=== PATIENT | female | born 1960 | race Caucasian/White ===

== ENCOUNTER 2020-09-04 16:35 | Outpatient (REF) | payer OTHER, SELFPAY | END 2020-09-04 16:36 | disposition home or self-care (01) | LOC: HO.LAB 16:35 | PROVIDERS: PCP Internal Medicine; Visit Provider Internal Medicine | DX: Z20.828 Contact with and (suspected) exposure to other viral communicable diseases (principal) | CPT/HCPCS: C9803; U0003 ==

== ENCOUNTER 2020-10-25 10:46 | Outpatient (REF) | payer OTHER, SELFPAY ==
--- NOTE | 2020-10-25 10:51 | MM_ITS ---
EXAMINATION: MM SCREENING DIGITAL BREAST TOMOSYNTHESIS, BILATERAL CLINICAL INFORMATION: Screening. Asymptomatic. The lifetime risk of breast cancer based on the Tyrer-Cuzick Model is 8%. COMPARISON: Mammography: 06/24/2018, 06/10/2017 TECHNIQUE: Digital breast tomosynthesis is performed in both the craniocaudal and mediolateral oblique views along with computer-aided detection (CAD). Synthesized 2D images are generated from the tomosynthesis. FINDINGS: There are scattered areas of fibroglandular density (ACR BI-RADS breast composition Category b). There are no significant masses, abnormal calcifications, or other abnormalities. Parenchymal pattern is similar to prior studies. No developing density. Again, there are benign grouped stable calcifications left breast posterior upper outer quadrant and scattered calcifications right breast similar to prior exams. No significant changes. MM/MM tomosynthesis screening BI IMPRESSION: No mammographic evidence of malignancy. ASSESSMENT: BI-RADS 2: Benign RECOMMENDATION: Routine annual mammography screening. This patient's information was entered into a reminder system with a target due date for their next mammogram.
== END 2020-10-25 10:47 | disposition home or self-care (01) ==
LOC: HO.MAMMO 10:46
PROVIDERS: PCP Internal Medicine; Visit Provider Internal Medicine
DX: Z12.31 Encounter for screening mammogram for malignant neoplasm of breast (principal)
CPT/HCPCS: 77063; 77067

== ENCOUNTER 2021-12-01 08:05 | Outpatient (REF) | payer OTHER, SELFPAY ==
[2021-12-01 08:33] LABS: MANUAL DIFF FLAG NO
[2021-12-01 09:33] LABS: Basophils Percent Auto 0.3 % (0-2); Eosinophils Absolute Auto 0.2 X10*3/uL (0.0-0.4); Eosinophils Percent Auto 2.3 % (0-4); Hematocrit 40.4 % (37.0-47.0); Hemoglobin 12.5 g/dl (12.0-16.0); Imm Gran Abs Auto 0.02 X10*3/uL (0.00-0.03); Imm Gran Pct Auto 0.3 % (0.0-0.4); Lymphocytes Absolute Auto 2.4 X10*3/uL (1.2-4.9); Mean Corpuscular HGB Conc 30.9 g/dl (31.0-35.0); Mean Corpuscular Hemoglobin 23.3 pg (27.0-33.0); Mean Corpuscular Volume 75.2 fL (80.0-98.0); Mean Platelet Volume 10.8 fL (9.4-12.3); Monocytes Absolute Auto 0.5 X10*3/uL (0.1-1.2); Monocytes Percent Auto 6.9 % (2-11); Neutrophils Absolute Auto 3.9 x10*3/uL (2.0-8.3); Neutrophils Percent Auto 55.2 % (45-73); Platelet Count 307 X10*3/uL (160-400); Red Blood Count 5.37 X10*6/uL (4.20-5.50); Red Cell Distribution Width 16.8 % (11.0-16.0)
[2021-12-01 09:57] LABS: Alanine Aminotransferase 22 U/L (0-31); Albumin Level 4.2 g/dL (3.5-5.0); Alkaline Phosphatase 77 U/L (39-117); Anion Gap 12 (12-20); Aspartate Amino Transferase 22 U/L (5-31); Bilirubin Total 0.4 mg/dL (0.0-1.0); Blood Urea Nitrogen 14 mg/dL (9-16); Calcium 9.8 mg/dL (8.4-10.2); Carbon Dioxide 28 mmol/L (22-29); Chloride 106 mmol/L (96-108); Cholesterol 202 mg/dL; Estimated Glomerular Filt Rate > 60; Glucose Fasting 119 mg/dL (60-99); HDL Cholesterol 36 mg/dL; LDL Cholesterol Calculated 130 mg/dl; Magnesium 2.2 mg/dL (1.6-2.6); Potassium 4.7 mmol/L (3.3-5.1); Sodium 141 mmol/L (135-145); Total Protein 7.2 g/dL (6.5-8.0); Triglycerides 184 mg/dL
[2021-12-01 10:14] LABS: TSH reflex Free T4 1.55 uIU/mL (0.32-4.0); Vitamin D 25-OH Total 43.2 ng/mL (>30)
[2021-12-03 09:27] LABS: Folate 8.5 ng/mL (> or = 4.0); Vitamin B12 254 pg/mL (200-900)
== END 2021-12-01 08:06 | disposition home or self-care (01) ==
LOC: HO.LAB 08:05
PROVIDERS: PCP Internal Medicine; Visit Provider Nurse Practitioner Family
DX: G25.81 Restless legs syndrome (principal); E03.9 Hypothyroidism, unspecified; R07.9 Chest pain, unspecified; E78.5 Hyperlipidemia, unspecified
CPT/HCPCS: 36415; 80053; 80061; 82306; 82607; 82746; 83735; 84443; 85025

== ENCOUNTER 2021-12-27 08:02 | Outpatient (REF) | payer OTHER, SELFPAY ==
[2021-12-27 09:43] LABS: Estimated Average Glucose 140 mg/dL; Hemoglobin A1c % 6.5 %
== END 2021-12-27 08:03 | disposition home or self-care (01) ==
LOC: HO.LAB 08:02
PROVIDERS: PCP Internal Medicine; Visit Provider Nurse Practitioner Family
DX: R73.01 Impaired fasting glucose (principal)
CPT/HCPCS: 36415; 83036

== ENCOUNTER 2022-05-23 08:18 | Outpatient (REF) | payer OTHER, SELFPAY ==
[2022-05-23 09:15] LABS: Alanine Aminotransferase 19 U/L (0-31); Albumin Level 4.2 g/dL (3.5-5.0); Alkaline Phosphatase 79 U/L (39-117); Anion Gap 15 (12-20); Aspartate Amino Transferase 18 U/L (5-31); Bilirubin Total 0.4 mg/dL (0.0-1.0); Blood Urea Nitrogen 8 mg/dL (9-16); Calcium 9.6 mg/dL (8.4-10.2); Carbon Dioxide 26 mmol/L (22-29); Chloride 104 mmol/L (96-108); Estimated Glomerular Filt Rate > 60; Glucose Fasting 125 mg/dL (60-99); Potassium 4.3 mmol/L (3.3-5.1); Sodium 141 mmol/L (135-145); Total Protein 7.2 g/dL (6.5-8.0)
== END 2022-05-23 08:19 | disposition home or self-care (01) ==
LOC: HO.LAB 08:18
PROVIDERS: PCP Internal Medicine; Visit Provider Internal Medicine
DX: R73.02 Impaired glucose tolerance (oral) (principal)
CPT/HCPCS: 36415; 80053

== ENCOUNTER 2023-01-09 09:04 | Outpatient (REF) | payer OTHER, SELFPAY ==
[2023-01-09 10:22] LABS: Alanine Aminotransferase 19 U/L (0-31); Albumin Level 4.1 g/dL (3.5-5.0); Alkaline Phosphatase 85 U/L (39-117); Anion Gap 14 (12-20); Aspartate Amino Transferase 20 U/L (5-31); Bilirubin Total 0.4 mg/dL (0.0-1.0); Blood Urea Nitrogen 12 mg/dL (9-16); Calcium 9.5 mg/dL (8.4-10.2); Carbon Dioxide 28 mmol/L (22-29); Chloride 105 mmol/L (96-108); Cholesterol 218 mg/dL; Estimated Glomerular Filt Rate > 60; Glucose Fasting 122 mg/dL (60-99); HDL Cholesterol 43 mg/dL; LDL Cholesterol Calculated 147 mg/dl; Potassium 4.7 mmol/L (3.3-5.1); Sodium 142 mmol/L (135-145); Triglycerides 140 mg/dL
== END 2023-01-09 09:05 | disposition home or self-care (01) ==
LOC: HO.LAB 09:04
PROVIDERS: PCP Internal Medicine; Visit Provider Internal Medicine
DX: R73.02 Impaired glucose tolerance (oral) (principal); E78.5 Hyperlipidemia, unspecified
CPT/HCPCS: 36415; 80053; 80061

== ENCOUNTER 2023-02-11 10:31 | Outpatient (REF) | payer OTHER, SELFPAY ==
--- NOTE | ~2023-02-11 | MM_ITS ---
EXAMINATION: MM SCREENING DIGITAL BREAST TOMOSYNTHESIS, BILATERAL CLINICAL INFORMATION: Screening. Asymptomatic. The lifetime risk of breast cancer based on the Tyrer-Cuzick Model is 7%. COMPARISON: Mammography: 10/25/2020, 06/24/2018, 06/10/2017 TECHNIQUE: Digital breast tomosynthesis is performed in both the craniocaudal and mediolateral oblique views along with computer-aided detection (CAD). Synthesized 2D images are generated from the tomosynthesis. FINDINGS: There are scattered areas of fibroglandular density (ACR BI-RADS breast composition Category b). There are no significant masses, abnormal calcifications, or other abnormalities. Parenchymal pattern is similar to prior studies. There is no developing density or architectural abnormality. The axilla and skin contours are unremarkable. There are no significant changes from prior exams. MM/MM tomosynthesis screening BI IMPRESSION: No mammographic evidence of malignancy. ASSESSMENT: BI-RADS 2: Benign RECOMMENDATION: Routine annual mammography screening. This patient's information was entered into a reminder system with a target due date for their next mammogram.
== END 2023-02-11 10:32 | disposition home or self-care (01) ==
LOC: HO.MAMMO 10:31
PROVIDERS: PCP Internal Medicine; Visit Provider Internal Medicine
DX: Z12.31 Encounter for screening mammogram for malignant neoplasm of breast (principal)
CPT/HCPCS: 77063; 77067

== ENCOUNTER 2023-02-19 10:44 | Outpatient (REF) | payer OTHER, SELFPAY ==
--- NOTE | ~2023-02-19 | MM_ITS ---
EXAMINATION: BONE DENSITOMETRY CLINICAL INDICATION: Unspecified menopausal and perimenopausal disorder. COMPARISON: Baseline BD dated 03/19/2016. TECHNIQUE: Using a Pixelated DXA System (software version: 13.1) manufactured by [employer], dual-energy x-ray absorptiometry was performed of the lumbar spine and left hip. The images are of good technical quality. Summary results are attached. FINDINGS: AP SPINE L1-L4: Current: BMD 1.001 g/cm2, Z-score -1.1, T-score -1.5, osteopenia, 2.6% decrease from baseline (<5% change is not significant). Baseline: BMD 1.028 g/cm2. LEFT FEMUR, NECK: Current: BMD 0.975 g/cm2, Z-score 0.2, T-score -0.5, normal. Baseline: BMD 0.951 g/cm2. LEFT FEMUR, TOTAL: Current: BMD 1.125 g/cm2, Z-score 1.2, T-score 0.9, normal, 8.2% increase from baseline (<5% change is not significant). Baseline: BMD 1.040 g/cm2. IDENTIFIED RISK FACTORS: Menopause, hysterectomy, bilateral oophorectomy, history of fracture (adult). HISTORY OF FRACTURE: Ankle. MEDICATIONS: Calcium supplements or multivitamin, vitamin D. MM/XR DEXA axial skeleton IMPRESSION: 1. DIAGNOSIS: Osteopenia based on the lowest T-score value of -1.5 in the lumbar spine applying World Health Organization criteria. 2. 10-YEAR FRACTURE RISK PREDICTION, FRAX: Major osteoporotic fracture (clinical spine, forearm, hip or shoulder) 5.8%. Hip fracture 0.2%. 3. Treatment Recommendations: NOF guidelines recommend consideration for treatment in postmenopausal women and men age 50 and older presenting with the following: -A hip or vertebral (clinical or morphometric) fracture. -T-score less than or equal to -2.5 at the femoral neck or spine after appropriate evaluation to exclude secondary causes. -Low bone mass at the hip or spine and a 10-year fracture probability by FRAX of greater than or equal to 3% for hip fracture or greater than or equal to 20% for major osteoporotic fracture based on the [place] adapted WHO algorithm. 4. Other Recommendations: All treatment decisions require clinical judgment and consideration of individual patient factors, including patient preferences, comorbidities, previous drug use, risk factors not captured in the FRAX model (e.g. frailty, falls, vitamin D deficiency, increased bone turnover, interval significant decline in bone density) and possible under or overestimation of fracture risk by FRAX. Additional medical evaluation for secondary cause of low bone mineral density may be appropriate. FUTURE SCAN RECOMMENDATION: People with diagnosed cases of osteoporosis or at high risk for fracture should have regular bone mineral density tests. For patients eligible for Medicare, routine testing is allowed once every 2 years. The testing frequency can be increased to one year for patients who have rapidly progressing disease, those who are receiving or discontinuing medical therapy to restore bone mass, or have additional risk factors.
== END 2023-02-19 10:45 | disposition home or self-care (01) ==
LOC: HO.MAMMO 10:44
PROVIDERS: PCP Internal Medicine; Visit Provider Internal Medicine
DX: Z13.820 Encounter for screening for osteoporosis (principal); Z78.0 Asymptomatic menopausal state
CPT/HCPCS: 77080

== ENCOUNTER 2023-06-05 10:59 | Outpatient (AMB) | payer OTHER, SELFPAY ==
--- NOTE | 2023-06-05 11:00 | MHC.OFFVIS ---
Intake Vital Signs 06/05/23 11:01 Height 5 ft Weight 215 lb 2.738 oz BMI 42.0 BP 108/84 Blood Pressure Location Lt brachial Position Sitting Pulse 81 Pulse Source Pulse Oximeter Temp 97.9 F Temp Source Skin Pulse Oximetry (%) 97 Intake Visit Reasons: Joint pain Intake Note: New patient here for joint pain. ? if pains are due to severe arthritis. Early Childhood Education Instructor Required: Yes Early Childhood Education Instructor Language: Animal Sitter Name: Priya [id number] Information Interpreted: clinical only Accompanied by: Self / Same As Patient Allergies epinephrine [EPINEPHRINE] Allergy (Intermediate, Verified 06/05/23 11:01) SWELLING Penicillins [PCN] Allergy (Intermediate, Verified 06/05/23 11:01) SWELLING contrast dye Allergy (Unknown, Verified 06/05/23 11:01) swelling meloxicam Adverse Reaction (Intermediate, Verified 06/05/23 11:01) Dizziness Medication List - Last Reconciled 06/05/23 by Jose Miles MD ibuprofen 400 mg PO TID loratadine 10 mg PO DAILY PRN 90 days omeprazole 20 mg PO DAILY 90 days HPI HPI Comments History of Present Illness Details The patient presents for evaluation of multiple areas of pain. We use the [employer] service to communicate. She reports 4-5 years of these pains. The areas of pain include the shoulders, upper arms, chest, knees, ankles, and hips. She thinks maybe the hands and feet are occasionally swollen. She does get nocturnal hand paresthesias. These have been going on for about a year or 2. She has not noticed any significant paresthesias during the daytime. She was prescribed some meloxicam but that seemed to make her lightheaded so she stopped it. However she does take [id number] ibuprofen, 1 or 2 t.i.d. and that helps to some degree. She is at home most of the day taking care of her daughter who has MS. 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 She used to be able to do more walking but now is bothered because she gets back and knee pain with prolonged standing or walking. She injured the left ankle a year ago. This was associated with swelling. She did get some treatment including physical therapy but she says is still occasionally bothers her. [facility] Medical History (Updated 06/05/23 @ 14:05 by Jose Miles MD) Chest pain at rest Class 2 obesity with body mass index (BMI) of 39.0 to 39.9 in adult GERD (gastroesophageal reflux disease) Heel pain Impaired glucose tolerance Right ankle pain Right leg pain Surgical History History of hysterectomy History of incisional hernia repair Family History (Updated 06/05/23 @ 11:13 by YAMIL Bahena) Father No problems noted. Mother No problems noted. 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 Negative for appetite change, weight change, fever, chills, malaise Eyes Details: Negative for vision change, dry eyes,headaches and dizziness ENT Details: She has occasional oral dryness but no dysphagia for solids. Negative for hearing change, tinnitus, oral ulcer, nose bleeds. Card Details: There is occasional anterior, pleuritic, nonexertional chest pain. These pains are very brief in duration. Negative palpitations, edema and syncope Resp Details: Negative for SOB, cough and wheezing GI Details: Negative indigestion/heartburn, nausea, abdominal pain, bowel changes, diarrhea, constipation and bloody stool. Details: Negative for dysuria, hematuria, nocturia, decreased force/flow and genital discharge Skin/Breast Details: Negative for itching, rash, hives, Raynaud's symptoms, sun sensitivity, and skin cancer Neuro Details: Bilateral nighttime hand paresthesias. This is been going on for about a year or 2. Negative for epilepsy, palsy, stroke, changes in speech and weakness Psych Details: Treated for depression in the past. Currently on no medications. There seems to be a lot of stress involved care of her daughter. Endo Details: Negative for polyuria and polydypsia Luis Manuel/Lymph Details: Negative for excessive bruising or bleeding. Physical Exam Vital Signs: Last Vital Signs Temp 97.9 F 06/05/23 11:01 Pulse 81 06/05/23 11:01 BP 108/84 06/05/23 11:01 Pulse Ox 97 06/05/23 11:01 BMI result Body Mass Index 42.0 APPEARANCE: Patient in no acute distress EYES no redness, pupils equal and reactive to light, eyelids normal. No temporal artery tenderness, redness or swelling. EARS: External ear normal, canal clear and tympanic membrane normal. NOSE/SINUS: Airflow through both nares, no nasal discharge, no bleeding THROAT: Oral mucosa moist, no ulcerations NECK: No thyromegaly or masses, no adenopathy, trachea midline. HEART: Regulrar rhythm, S1-S2 heard, no murmurs, rubs or gallops. LUNG: Clear to percussion and auscultation ABD: Normal bowel sounds, no organomegaly, masses or tenderness. EXTREMITIES: Some scattered nontender varicose veins in the legs. This is more prominent on the left. No edema, no calf tenderness, normal peripheral pulses. NEURO: Oriented and alert x3. No focal weakness. Reflexes symmetric. Gait normal. SKIN: There are scattered spots of hyperpigmented skin over the upper and lower arms. These look like postinflammatory changes from a papular rash. No objective evidence of Raynaud's disease. A JOINT EXAM:?? Cervical Spine: Mild pain with extremes of range of motion with some mild posterior cervical muscle tenderness. Thoracic Spine:.? No scoliosis.? No tenderness on palpation. Lumbar Spine:.? Alignment normal.? Lumbar pain with flexion at 45 degrees. There is positive straight leg raising on the left with buttock and back pain at 45 degrees. Chest Wall:.? No tenderness, swelling, increased warmth or erythema. Hands:.? Right: There is mild tenderness at the base of the thumb but minimal enlargement in that region. There is nontender bony enlargement at the thumb IP joint. Rest of joints have pain-free range of motion without triggering, soft tissue swelling, redness or warmth. There is no thenar atrophy or sensory loss. Left: Normal pain-free range of motion without tenderness, swelling, increased warmth or erythema. There is no sensory loss or thenar atrophy. Wrists:.? Mild pain with flexion extension at 80 degrees. There is no tenderness, soft tissue swelling, increased warmth or erythema. There is a negative Tinel sign positive Phalen's test. Elbows:. Normal pain-free range of motion without tenderness, swelling, increased warmth or erythema. Shoulders:. Mild discomfort with abduction 135 degrees or with extremes of rotation. Most of the discomfort is felt over the trapezius. There is mild anterior tenderness bilaterally without swelling, abductor weakness, or adenopathy. Hips:.? Right: Full range of motion without pain. Left: Mild lumbar discomfort with extremes of normal internal or external rotation. No groin pain with motion. Hip bursa:.? Mild bilateral trochanteric a a tenderness. Knees:.?? Normal pain-free range of motion without tenderness, swelling, increased warmth or erythema.? There is no effusion or crepitation Ankles: Left: Mild pain with extremes of normal inversion and eversion. There is mild lateral tenderness without redness or swelling. Right: Normal pain-free range of motion with patellofemoral crepitus and medial compartment tenderness. There is no effusion, soft tissue swelling, increased warmth or erythema. Feet:.? Normal pain-free range of motion without tenderness, swelling, increased warmth or erythema. Tender points:.? Mild tenderness to digital palpation at the right occiput, right trapezius, bilateral second rib, both lateral epicondyle, both knees, greater trochanter area bilaterally. ? Results Reviewed Results Reviewed: Laboratory Tests 12/01/21 12/01/21 01/09/23 08:32 08:32 09:26 AST 20 ALT 19 Vitamin B12 254 TSH 1.55 Assessment & Plan Assessment & Plan (1) Ankle pain, left: Code(s): M25.572 - Pain in left ankle and joints of left foot (2) Knee pain, bilateral: Code(s): M25.561 - Pain in right knee; M25.562 - Pain in left knee (3) Carpal tunnel syndrome on both sides: Code(s): G56.03 - Carpal tunnel syndrome, bilateral upper limbs (4) Lower back pain: Code(s): M54.50 - Low back pain, unspecified Plan The patient has many areas of pain but none with significant soft tissue joint swelling to suggest active synovitis. I think mostly with dealing with some osteoarthritis and fibromyalgia here. OA is like to be present in the knees, lower back and perhaps even the left ankle after the injury from years ago. The other pains seem to be most likely from fibromyalgia since she has many tender points. I asked her to do the lab work that the primary doctor had originally ordered and I also ordered some other tests. We will look at x-rays of the knees and lumbar spine. I think for now she can continue with the ibuprofen and we will review more treatment options at her next visit. I gave her some written information on osteoarthritis to review. I assured her prescription for bilateral wrist splints to wear nightly. This was to treat the nighttime hand numbness which is likely due to carpal tunnel syndrome. She may not respond to the splinting in which case we would do further workup. We will also discuss further potential treatment for fibromyalgia. Review of the patient's history, physical exam and discussion of the workup took with 6 minutes. Orders: Orders XR knee LT 3V Today M25.561 - Pain in right knee, M25.562 - Pain in left knee, M25.572 - Pain in left ankle and joints of left foot XR knee RT 3V Today M25.561 - Pain in right knee, M25.562 - Pain in left knee, M25.572 - Pain in left ankle and joints of left foot XR lumbar spine 2-3V Today M54.50 - Low back pain, unspecified Cyclic Citrullinated Peptide Today M25.561 - Pain in right knee, M25.562 - Pain in left knee C Reactive Protein Today M25.561 - Pain in right knee, M25.562 - Pain in left knee Rheumatoid Factor Today M25.561 - Pain in right knee, M25.562 - Pain in left knee Erythrocyte Sedimentation Rate Today M25.561 - Pain in right knee, M25.562 - Pain in left knee Medications: New arm brace (Wrist Brace) use at night only - both wrists 2 ea 0RF G56.03 - Carpal tunnel syndrome, bilateral upper limbs Coding Level of Care Code New Pt Level 4 (23704) Diagnoses Ankle pain, left M25.572 Knee pain, bilateral M25.561; M25.562 Carpal tunnel syndrome on both sides G56.03 Lower back pain M54.50
[2023-06-05 11:01] VITALS: BP 108/84; PULSE 81; TEMP 36.6; O2SAT 97; BMI 42.0
== END 2023-06-05 12:07 | disposition home or self-care (01) ==
PROVIDERS: PCP Internal Medicine; Visit Provider Internal Medicine Rheumatology
DX: M25.572 Pain in left ankle and joints of left foot (principal); M25.561 Pain in right knee; M25.562 Pain in left knee; G56.03 Carpal tunnel syndrome, bilateral upper limbs; M54.50 Low back pain, unspecified
CPT/HCPCS: 99204

== ENCOUNTER → 2023-06-05 10:59 | Outpatient (BNVA) | payer OTHER, SELFPAY | PROVIDERS: PCP Internal Medicine; Visit Provider Internal Medicine Rheumatology | DX: M25.572 Pain in left ankle and joints of left foot (principal); M25.561 Pain in right knee; M25.562 Pain in left knee; G56.03 Carpal tunnel syndrome, bilateral upper limbs; M54.50 Low back pain, unspecified | CPT/HCPCS: 99202 ==

== ENCOUNTER 2023-06-09 08:44 | Outpatient (REF) | payer OTHER, SELFPAY ==
--- NOTE | ~2023-06-09 | XR_ITS ---
EXAMINATION: XR LEFT KNEE, RIGHT KNEE, LUMBAR SPINE CLINICAL INFORMATION: Bilateral knee pain, low back pain COMPARISON: None TECHNIQUE: 3 views of the lumbar spine. AP, sunrise and 2 lateral views of the bilateral knees. FINDINGS: LUMBAR SPINE: Mild leftward curvature of the lumbar spine. Small rounded pelvic calcifications are likely vascular. Lumbar vertebral body heights and alignment are maintained. Mild degenerative changes in the lower lumbar spine. Lumbar disc space heights are preserved. Facet arthritis in the lower lumbar spine. RIGHT KNEE: Mild medial joint space narrowing. Tiny tricompartmental osteophytes. Trace joint effusion. LEFT KNEE: Small quadriceps enthesophyte. Mild medial joint space narrowing. Tiny tricompartmental osteophytes. Trace joint effusion. XR/XR lumbar spine 2-3V IMPRESSION: 1. Mild multilevel lumbar spondylosis. 2. Mild degenerative changes bilateral knees.
--- NOTE | ~2023-06-09 | XR_ITS ---
EXAMINATION: XR LEFT KNEE, RIGHT KNEE, LUMBAR SPINE CLINICAL INFORMATION: Bilateral knee pain, low back pain COMPARISON: None TECHNIQUE: 3 views of the lumbar spine. AP, sunrise and 2 lateral views of the bilateral knees. FINDINGS: LUMBAR SPINE: Mild leftward curvature of the lumbar spine. Small rounded pelvic calcifications are likely vascular. Lumbar vertebral body heights and alignment are maintained. Mild degenerative changes in the lower lumbar spine. Lumbar disc space heights are preserved. Facet arthritis in the lower lumbar spine. RIGHT KNEE: Mild medial joint space narrowing. Tiny tricompartmental osteophytes. Trace joint effusion. LEFT KNEE: Small quadriceps enthesophyte. Mild medial joint space narrowing. Tiny tricompartmental osteophytes. Trace joint effusion. XR/XR knee RT 3V IMPRESSION: 1. Mild multilevel lumbar spondylosis. 2. Mild degenerative changes bilateral knees.
--- NOTE | ~2023-06-09 | XR_ITS ---
EXAMINATION: XR LEFT KNEE, RIGHT KNEE, LUMBAR SPINE CLINICAL INFORMATION: Bilateral knee pain, low back pain COMPARISON: None TECHNIQUE: 3 views of the lumbar spine. AP, sunrise and 2 lateral views of the bilateral knees. FINDINGS: LUMBAR SPINE: Mild leftward curvature of the lumbar spine. Small rounded pelvic calcifications are likely vascular. Lumbar vertebral body heights and alignment are maintained. Mild degenerative changes in the lower lumbar spine. Lumbar disc space heights are preserved. Facet arthritis in the lower lumbar spine. RIGHT KNEE: Mild medial joint space narrowing. Tiny tricompartmental osteophytes. Trace joint effusion. LEFT KNEE: Small quadriceps enthesophyte. Mild medial joint space narrowing. Tiny tricompartmental osteophytes. Trace joint effusion. XR/XR knee LT 3V IMPRESSION: 1. Mild multilevel lumbar spondylosis. 2. Mild degenerative changes bilateral knees.
[2023-06-09 08:58] LABS: MANUAL DIFF FLAG NO
[2023-06-09 10:04] LABS: Basophils Percent Auto 0.4 % (0-2); Eosinophils Absolute Auto 0.1 X10*3/uL (0.0-0.4); Eosinophils Percent Auto 1.9 % (0-4); Hematocrit 41.6 % (37.0-47.0); Hemoglobin 12.9 g/dl (12.0-16.0); Imm Gran Abs Auto 0.02 X10*3/uL (0.00-0.03); Imm Gran Pct Auto 0.3 % (0.0-0.4); Lymphocytes Absolute Auto 2.5 X10*3/uL (1.2-4.9); Lymphocytes Percent Auto 34.2 % (20-40); Mean Corpuscular Hemoglobin 23.4 pg (27.0-33.0); Mean Corpuscular Volume 75.4 fL (80.0-98.0); Mean Platelet Volume 11.1 fL (9.4-12.3); Monocytes Absolute Auto 0.5 X10*3/uL (0.1-1.2); Monocytes Percent Auto 6.7 % (2-11); Neutrophils Absolute Auto 4.1 x10*3/uL (2.0-8.3); Neutrophils Percent Auto 56.5 % (45-73); Platelet Count 317 X10*3/uL (160-400); Red Blood Count 5.52 X10*6/uL (4.20-5.50); Red Cell Distribution Width 17.9 % (11.0-16.0); White Blood Count 7.3 X10*3/uL (4.8-10.8)
[2023-06-09 10:48] LABS: Erythrocyte Sedimentation Rate 11 MM/HR (0-20)
[2023-06-09 10:49] LABS: Alanine Aminotransferase 17 U/L (0-31); Alkaline Phosphatase 77 U/L (39-117); Anion Gap 12 (12-20); Aspartate Amino Transferase 21 U/L (5-31); Bilirubin Total 0.3 mg/dL (0.0-1.0); Blood Urea Nitrogen 12 mg/dL (9-16); C Reactive Protein 0.53 mg/dL (< or = 0.50); Calcium 9.5 mg/dL (8.4-10.2); Carbon Dioxide 27 mmol/L (22-29); Chloride 106 mmol/L (96-108); Cholesterol 196 mg/dL (<200); Estimated Glomerular Filt Rate > 60; Glucose Fasting 125 mg/dL (60-99); HDL Cholesterol 38 mg/dL (>40); LDL Cholesterol Calculated 122 mg/dL (<100); Potassium 4.1 mmol/L (3.3-5.1); Rheumatoid Factor < 13.0 IU/mL (<15.0); Sodium 141 mmol/L (135-145); Total Protein 7.4 g/dL (6.5-8.0); Triglycerides 182 mg/dL (<150)
[2023-06-11 13:24] LABS: Cyclic Citrullinated Peptide <16 UNITS
[2023-06-12 11:28] LABS: Anti Nuclear Antibody Screen NEGATIVE (NEGATIVE)
== END 2023-06-09 08:45 | disposition home or self-care (01) ==
LOC: HO.LAB 08:44
PROVIDERS: Absent Provider Internal Medicine; PCP Internal Medicine; Visit Provider Internal Medicine Rheumatology
DX: E78.00 Pure hypercholesterolemia, unspecified (principal); E78.5 Hyperlipidemia, unspecified; M54.50 Low back pain, unspecified; M25.561 Pain in right knee; M25.562 Pain in left knee; M25.572 Pain in left ankle and joints of left foot
CPT/HCPCS: 36415; 72100; 73562; 80053; 80061; 85025; 85652; 86038; 86140; 86200; 86431

== ENCOUNTER 2023-06-09 09:59 | Outpatient (AMB) | payer OTHER, SELFPAY ==
[2023-06-09 10:07] VITALS: BP 118/80; BMI 41.8
--- NOTE | 2023-06-09 10:07 | A.OFFPC_ITS ---
Vital Signs 06/09/23 10:07 Height 5 ft Weight 214 lb BMI 41.8 BP 118/80 Blood Pressure Location Lt brachial Position Sitting Intake Visit Reasons: Annual Exam Intake Note: Patient here for an annual physical exam Dietitian Chief Required: No Accompanied by: Self / Same As Patient Allergies epinephrine [EPINEPHRINE] Allergy (Intermediate, Verified 06/09/23 10:17) SWELLING Penicillins [PCN] Allergy (Intermediate, Verified 06/09/23 10:17) SWELLING contrast dye Allergy (Unknown, Verified 06/09/23 10:17) swelling famotidine Adverse Reaction (Intermediate, Verified 06/09/23 10:17) Abdominal Pain meloxicam Adverse Reaction (Intermediate, Verified 06/09/23 10:17) Dizziness Medication List - Last Reconciled 06/09/23 by Gina Olvera MD arm brace (Wrist Brace) use at night only - both wrists ibuprofen 400 mg PO TID loratadine 10 mg PO DAILY PRN 90 days omeprazole 20 mg PO DAILY 90 days Tobacco use date assessed: 02/06/23 Dental Screening Dental Screen Date: 06/09/23 Did you have a dental visit in the last 12 months?: Yes Did you have a dental problem in the last 6 months where you did not have access to dental care?: No Was dental information given to patient?: Patient has dentist HPI HPI Comments History of Present Illness Details This is a 62-year-old female that comes for her physical exam. She is morbidly obese with a BMI of 41.8 and declines weight loss surgery but willing to do other methods to lose weight. Has family history of colon cancer in a sister in her 30s that from colon cancer. Last colonoscopy was 2017 showing internal hemorrhoids and I will refer her to another colonoscopy due to family history. Last mammogram was February 2023. Last bone density was February 2023 showing osteopenia. No need for Pap smears due to hysterectomy for benign reasons. Labs and x-ray results are still pending. [facility] Medical History (Updated 06/09/23 @ 10:34 by Gina Olvera MD) Chest pain at rest Class 2 obesity with body mass index (BMI) of 39.0 to 39.9 in adult GERD (gastroesophageal reflux disease) Heel pain Impaired glucose tolerance Right ankle pain Right leg pain Surgical History History of hysterectomy History of incisional hernia repair Family History (Updated 06/09/23 @ 10:23 by Gina Olvera MD) Father Tuberculosis Mother Tuberculosis Sister Lung cancer Sister Colon cancer Maternal Grandmother Diabetes Daughter Multiple sclerosis [place] Sister Lung cancer Social History Household Members: Children Household Members Other:: daughter Housing: Apartment Alcohol intake: former Patient Tobacco Use Status: Former Tobacco user Tobacco use type: Cigarette e-Cigarette/Vaping Use: Never Used Second Hand Smoke Exposure: No service: No Current occupational status: employed Current occupation: [employer] Current occupational exposures/hazards: No Cognitive needs: No Hearing needs: No Vision needs: No Questionnaire Thrive Questionnaire Date Thrive assessed: 02/06/23 LESLEY-7 AMB Questionnaire LESLEY-7 Date LESLEY - 7 assessed: 02/06/23 Source: Developed by Drs. Alexander Morton, Becca Bermudez, John Plaza and colleagues, with an educational taqueria from [employer]. Review of Systems Const All systems reviewed & are unremarkable except as noted in HPI and below Eyes Reports no additional complaints, Denies change in vision and Denies other visual disturbances Card Denies chest pain at rest, Denies chest pain with activity, Denies edema, Denies irregular heart rhythm, Denies claudication, Denies dyspnea, Denies dyspnea on exertion, Denies orthopnea, Denies paroxysmal nocturnal dyspnea and Denies slow heart rate Resp Denies cough, Denies dyspnea and Denies dyspnea on exertion GI Denies abdominal pain, Denies change in bowel habits, Denies excessive flatus, Denies nausea and Denies vomiting Denies urinary incontinence, Denies urinary hesitancy and Denies urinary urgency Musc Denies abnormal gait, Denies atrophy, Denies deformity and Denies limited range of motion Skin/Breast Denies bleeding lesions, Denies changing lesions and Denies rash Neuro Denies abnormal gait and Denies lack of coordination Physical exam (Primary Care) Vital Signs: Last Vital Signs BP 118/80 06/09/23 10:07 BMI result Body Mass Index 41.8 Tobacco/Smoking Status: Tobacco use Status Tobacco use date assessed 02/06/23 06/09/23 10:11 Patient Tobacco Use Status Former Tobacco user 06/09/23 10:11 Tobacco use type Cigarette 06/09/23 10:11 e-Cigarette/Vaping Use Never Used 06/09/23 10:11 Thrive Assessment: Date of Thrive Assessment Date Thrive assessed 02/06/23 06/09/23 10:11 Const Orientation/consciousness: patient oriented x3 HENMT Head: Yes normal to inspection, Yes normocephalic and Yes atraumatic Ears: external ears normal Eyes General: appearance normal, both eyes and all related structures Eyelids: Yes eyelids normal Conjunctivae: conjunctivae normal Neck Neck: Yes normal visual inspection and Yes supple Resp Effort & Inspection: normal respiratory effort Auscultation: clear to auscultation bilaterally Cardio Jugular venous distension: no JVD Rate: regular rate Rhythm: regular rhythm Heart sounds: S1 normal heart sound present and S2 normal heart sound present GI Inspection: Yes normal to inspection Palpation (GI): Soft to palpation and nontender Auscultation: normal bowel sounds Skin General skin exam: no rashes or lesions noted Neuro General: patient oriented x3 and no focal motor deficits Extrem General: Yes full ROM Psych Appearance: grossly normal Assessment and Plan Assessment & Plan (1) Physical exam: Code(s): Z00.00 - Encounter for general adult medical examination without abnormal findings Plan: Repeat in a year. (2) Morbid obesity with BMI of 40.0-44.9, adult: Code(s): E66.01 - Morbid (severe) obesity due to excess calories; Z68.41 - Body mass index [BMI] 40.0-44.9, adult Plan: Patient declines weight loss surgery. I did send a message to weight management to see if they can see her for balloon placement. For now start diet and exercise to reach BMI goal less than 30. Orders: Referrals Gastroenterology Referral Z12.11 - Encounter for screening for malignant neoplasm of colon Coding Level of Care Code Est Pt Prev Care 40-64y(22816) Diagnoses Physical exam Z00.00 Morbid obesity with BMI of 40.0-44.9, adult E66.01; Z68.41 Time Spent (min) 34
== END 2023-06-09 10:28 | disposition home or self-care (01) ==
PROVIDERS: PCP Internal Medicine; Visit Provider Internal Medicine
DX: Z00.00 Encounter for general adult medical examination without abnormal findings (principal); E66.01 Morbid (severe) obesity due to excess calories; Z68.41 Body mass index [BMI] 40.0-44.9, adult
CPT/HCPCS: 99396

== ENCOUNTER 2023-06-24 10:05 | Outpatient (AMB) | payer OTHER, SELFPAY ==
[2023-06-24 10:07] VITALS: BP 126/82; PULSE 86; TEMP 36.4; O2SAT 99; BMI 41.9
--- NOTE | 2023-06-24 10:07 | A.OFFVIS_ITS ---
Intake Vital Signs 06/24/23 10:07 Height 5 ft Weight 214 lb 11.684 oz BMI 41.9 BP 126/82 Blood Pressure Location Lt brachial Position Sitting Pulse 86 Pulse Source Pulse Oximeter Temp 97.5 F Temp Source Skin Pulse Oximetry (%) 99 Oxygen Delivery Method Room Air Intake Visit Reasons: OA/FM Intake Note: Here for test results. Contracts Advisor Required: Yes Contracts Advisor Language: [employer] Name: Bridget [id number] Information Interpreted: clinical only Accompanied by: Self / Same As Patient Allergies epinephrine [EPINEPHRINE] Allergy (Intermediate, Verified 06/24/23 10:12) SWELLING Penicillins [PCN] Allergy (Intermediate, Verified 06/24/23 10:12) SWELLING contrast dye Allergy (Unknown, Verified 06/24/23 10:12) swelling famotidine Adverse Reaction (Intermediate, Verified 06/24/23 10:12) Abdominal Pain meloxicam Adverse Reaction (Intermediate, Verified 06/24/23 10:12) Dizziness HPI HPI Comments History of Present Illness Details The patient returns for evaluation of her multiple areas of pain. We used the i-pad translating service. We had done a workup before including knee and lumbar spine x-rays. As expected there was some mild osteoarthritis in the knees. There is a bit more findings of OA in the lower back. She of course has pains elsewhere but none are more bothersome than the right leg pain. At this point she localizes it to the lateral aspect of the calf just below the knee and just above the ankle. It seems to be most bothersome at night. She does move around at night and that seems to help it somewhat suggesting some restless leg syndrome. Because of that she was prescribed ropinirole in the past. She did not think it helped any so she stopped it. The hand numbness has improved with regular use of nighttime wrist splints. She does not recall any injury to the ankle or leg in the past. [facility] Medical History Right ankle pain Right leg pain Class 2 obesity with body mass index (BMI) of 39.0 to 39.9 in adult Impaired glucose tolerance Heel pain Chest pain at rest GERD (gastroesophageal reflux disease) Surgical History History of hysterectomy History of incisional hernia repair Family History Father Tuberculosis Mother Tuberculosis Sister Lung cancer Sister Colon cancer Maternal Grandmother Diabetes Daughter Multiple sclerosis [place] Sister Lung cancer Social History Household Members: Children Household Members Other:: daughter Housing: Apartment Alcohol intake: former Patient Tobacco Use Status: Former Tobacco user Tobacco use type: Cigarette e-Cigarette/Vaping Use: Never Used Second Hand Smoke Exposure: No service: No Current occupational status: employed Current occupation: [employer] Current occupational exposures/hazards: No Cognitive needs: No Hearing needs: No Vision needs: No Review of Systems Const Details: Some fatigue. Negative for appetite change, weight change, fever, chills, malaise Eyes Details: Some ocular dryness. Negative for vision change, headaches and dizziness ENT Details: Negative for hearing change, tinnitus, oral ulcer, nose bleeds and oral dryness. Card Details: Negative chest pain, edema and syncope Resp Details: Negative for SOB, cough and wheezing GI Details: Negative indigestion/heartburn, nausea, abdominal pain, bowel changes, diarrhea, constipation and bloody stool. Luis Manuel/Lymph Details: Negative for excessive bruising or bleeding. Physical Exam Vital Signs: Last Vital Signs Temp 97.5 F 06/24/23 10:07 Pulse 86 06/24/23 10:07 BP 126/82 06/24/23 10:07 Pulse Ox 99 06/24/23 10:07 Oxygen Delivery Method Room Air 06/24/23 10:07 BMI result Body Mass Index 41.9 APPEARANCE: Patient in no acute distress EYES no redness, pupils equal and reactive to light, eyelids normal. No temporal artery tenderness, redness or swelling. EXTREMITIES: Some scattered nontender varicose veins in the legs. This is more prominent on the left. No edema. There is mild tenderness on the lateral calf from the right leg and slight tenderness anteriorly on that leg in the lower extremity. There is similar mild tenderness anteriorly and laterally in the calf for the left leg. No skin induration or swelling. She has normal peripheral pulses. NEURO: Oriented and alert x3. No focal weakness. Reflexes symmetric. Gait normal. SKIN: There are scattered spots of hyperpigmented skin over the upper and lower arms. These look like postinflammatory changes from a papular rash. No objective evidence of Raynaud's disease. JOINT EXAM:?? Cervical Spine: Mild pain with extremes of range of motion with some mild posterior cervical muscle tenderness. Thoracic Spine:.? No scoliosis.? No tenderness on palpation. Lumbar Spine:.? Alignment normal.? Lumbar pain with flexion at 45 degrees. There is positive straight leg raising on the left with buttock and back pain at 45 degrees. Chest Wall:.? No tenderness, swelling, increased warmth or erythema. Hands:.? Right: There is mild tenderness at the base of the thumb but minimal enlargement in that region. There is nontender bony enlargement at the thumb IP joint. Rest of joints have pain-free range of motion without triggering, soft tissue swelling, redness or warmth. There is no thenar atrophy or sensory loss. Left: Normal pain-free range of motion without tenderness, swelling, increased warmth or erythema. There is no sensory loss or thenar atrophy. Wrists:.? Mild pain with flexion extension at 80 degrees. There is no tenderness, soft tissue swelling, increased warmth or erythema. There is a negative Tinel sign positive Phalen's test. Elbows:. Normal pain-free range of motion without tenderness, swelling, increased warmth or erythema. Shoulders:. Mild discomfort with abduction 135 degrees or with extremes of rotation. Most of the discomfort is felt over the trapezius. There is mild anterior tenderness bilaterally without swelling, abductor weakness, or adenopathy. Hips:.? Right: Full range of motion without pain. Left: Mild lumbar discomfort with extremes of normal internal or external rotation. No groin pain with motion. Hip bursa:.? Mild bilateral trochanteric a a tenderness. Knees:.?? Normal pain-free range of motion without tenderness, swelling, increased warmth or erythema.? There is no effusion or crepitation Ankles: Left: Mild pain with extremes of normal inversion and eversion. There is slight lateral tenderness without redness or swelling. Right: Normal pain- free range of motion with patellofemoral crepitus and medial compartment tenderness. There is no effusion, soft tissue swelling, increased warmth or erythema. Feet:.? Normal pain-free range of motion without tenderness, swelling, increased warmth or erythema. Tender points:.? Mild tenderness to digital palpation at the right occiput, right trapezius, bilateral second rib, both lateral epicondyle, both knees, greater trochanter area bilaterally. ?? Results Reviewed Results Reviewed: [address] [address] XRay Report Signed Patient: Felipa Buck MR#: [id number] : 1960 Acct:[id number] Age/Sex: 62 / F ADM Date: 06/09/[address]: Jose Miles MD Ordering Physician: Jose Miles MD Date of Service: 06/09/23 Procedure(s): XR lumbar spine 2-3V Accession Number(s): [id number] cc: Jose Miles MD~ EXAMINATION: XR LEFT KNEE, RIGHT KNEE, LUMBAR SPINE CLINICAL INFORMATION: Bilateral knee pain, low back pain COMPARISON: None TECHNIQUE: 3 views of the lumbar spine. AP, sunrise and 2 lateral views of the bilateral knees. FINDINGS: LUMBAR SPINE: Mild leftward curvature of the lumbar spine. Small rounded pelvic calcifications are likely vascular. Lumbar vertebral body heights and alignment are maintained. Mild degenerative changes in the lower lumbar spine. Lumbar disc space heights are preserved. Facet arthritis in the lower lumbar spine. RIGHT KNEE: Mild medial joint space narrowing. Tiny tricompartmental osteophytes. Trace joint effusion. LEFT KNEE: Small quadriceps enthesophyte. Mild medial joint space narrowing. Tiny tricompartmental osteophytes. Trace joint effusion. XR/XR lumbar spine 2-3V IMPRESSION: 1. Mild multilevel lumbar spondylosis. 2. Mild degenerative changes bilateral knees. Dictated By: Valeri Snyder MD I it is the in the June 09 lab work: ESR 11, creatinine 0.65, CRP 0.53, rheumatoid factor, CCP, ISAEL all negative. Assessment & Plan Assessment & Plan (1) Osteoarthritis of knees, bilateral: Code(s): M17.0 - Bilateral primary osteoarthritis of knee (2) Osteoarthritis of lumbar spine: Code(s): M47.816 - Spondylosis without myelopathy or radiculopathy, lumbar region (3) Leg pain, lateral: Code(s): M79.606 - Pain in leg, unspecified (4) Restless leg syndrome: Code(s): G25.81 - Restless legs syndrome Plan Once again on exam she does not seem to have any signs of an active inflammatory arthritis. Radiographs have demonstrated OA that is pretty mild in the knees. It is a bit more apparent on lumbar spine films. Inflammatory markers are negative in the blood as well. Mostly today she is complaining of this nighttime right lateral calf pain. It does not seem to be that noticeable during the daytime. It is not associated with any neurologic deficits. This does suggest restless leg syndrome. I have ordered an x-ray of the tibial region just to rule out other pathology in the leg. We will try some nighttime gabapentin 100 mg to 300 mg in the evening. She was at first reluctant to use gabapentin because she thought it was a narcotic. I told her it might cause sedation and she could gradually increase the dose as tolerated up to 300 mg in the evening. Overall she does have many tender points so also has some element of fibromyalgia. We will have her come back in about 2 months. Review of her history, exam, lab andxray review and discussion of gabapentin use took 33 minutes, Orders: Orders XR tibia fibula RT 2V Today M79.606 - Pain in leg, unspecified Medications: New gabapentin 100 - 300 mg (1 - 3 x 100 mg) PO BEDTIME 60 caps 0RF G25.81 - Restless legs syndrome Coding Level of Care Code Est Pt Level 4 (86177) Diagnoses Osteoarthritis of knees, bilateral M17.0 Osteoarthritis of lumbar spine M47.816 Leg pain, lateral M79.606 Restless leg syndrome G25.81
== END 2023-06-24 10:46 | disposition home or self-care (01) ==
PROVIDERS: PCP Internal Medicine; Visit Provider Internal Medicine Rheumatology
DX: M17.0 Bilateral primary osteoarthritis of knee (principal); M47.816 Spondylosis without myelopathy or radiculopathy, lumbar region; M79.606 Pain in leg, unspecified; G25.81 Restless legs syndrome
CPT/HCPCS: 99214

== ENCOUNTER → 2023-06-24 10:05 | Outpatient (BNVA) | payer OTHER, SELFPAY | PROVIDERS: PCP Internal Medicine; Visit Provider Internal Medicine Rheumatology | DX: M17.0 Bilateral primary osteoarthritis of knee (principal); M47.816 Spondylosis without myelopathy or radiculopathy, lumbar region; M79.606 Pain in leg, unspecified; G25.81 Restless legs syndrome | CPT/HCPCS: 99212 ==

== ENCOUNTER 2023-06-25 10:05 | Outpatient (REF) | payer OTHER, SELFPAY ==
--- NOTE | ~2023-06-25 | XR_ITS ---
EXAMINATION: XR TIBIA AND FIBULA, RIGHT CLINICAL INFORMATION: Pain. COMPARISON: Right knee radiographs dated 05/20/2023. TECHNIQUE: AP and lateral views of the right tibia and fibula were obtained. FINDINGS: The bones and soft tissues are normal. No fracture. No osseous lesions. XR/XR tibia fibula RT 2V IMPRESSION: Normal right tibia and fibula.
== END 2023-06-25 10:06 | disposition home or self-care (01) ==
LOC: HO.XRAY 10:05
PROVIDERS: PCP Internal Medicine; Visit Provider Internal Medicine Rheumatology
DX: M79.604 Pain in right leg (principal)
CPT/HCPCS: 73590

== ENCOUNTER 2023-08-26 09:32 | Outpatient (AMB) | payer OTHER, SELFPAY ==
[2023-08-26 09:36] VITALS: BP 127/82; PULSE 82; TEMP 36.5; O2SAT 97; BMI 41.1
--- NOTE | 2023-08-26 09:36 | MHC.OFFVIS ---
Intake Vital Signs 08/26/23 09:36 Height 5 ft Weight 210 lb 8.663 oz BMI 41.1 BP 127/82 Blood Pressure Location Rt brachial Position Sitting Pulse 82 Pulse Source Pulse Oximeter Temp 97.7 F Temp Source Skin Pulse Oximetry (%) 97 Oxygen Delivery Method Room Air Intake Visit Reasons: RLS/OA Intake Note: Patient presents today to follow up on RLS and OA. Reports starting gabapentin as discussed at last visit. Discontinued due to causing trouble sleeping. Reports only taking one dose. Reports starting the gym late July. Fast Food Sales Assistant Required: Yes Fast Food Sales Assistant Language: Insurance Verification Clerk Name: Mikaela [id number] Information Interpreted: clinical only Accompanied by: Self / Same As Patient Allergies epinephrine [EPINEPHRINE] Allergy (Intermediate, Verified 08/26/23 09:39) SWELLING Penicillins [PCN] Allergy (Intermediate, Verified 08/26/23 09:39) SWELLING contrast dye Allergy (Unknown, Verified 08/26/23 09:39) swelling famotidine Adverse Reaction (Intermediate, Verified 08/26/23 09:39) Abdominal Pain meloxicam Adverse Reaction (Intermediate, Verified 08/26/23 09:39) Dizziness Medication List - Last Reconciled 08/26/23 by Jose Miles MD calcium citrate-vitamin D3 500 mg-12.5 mcg (500 unit) 2 tabs PO DAILY 90 days ibuprofen 400 mg PO TID omeprazole 20 mg PO DAILY 90 days HPI HPI Comments History of Present Illness Details The patient returns for evaluation of her osteoarthritis and fibromyalgia. She was having an unusual pain in the right lateral calf region at her last visit. We did an x-ray of the area that was normal. She says the pain is less severe and that comes and goes. I suggested gabapentin at night for it but she claims she had a paradoxical reaction to the gabapentin keeping her up at night. She remains on ibuprofen if needed although he takes limited doses because of GERD symptoms in spite of her omeprazole. There is no joint swelling. Other areas of pain that are less problematic include the hands, shoulders, arms, lower back and lateral hips. [facility] Medical History Right ankle pain Right leg pain Class 2 obesity with body mass index (BMI) of 39.0 to 39.9 in adult Impaired glucose tolerance Heel pain Chest pain at rest GERD (gastroesophageal reflux disease) Surgical History History of hysterectomy History of incisional hernia repair Family History Father Tuberculosis Mother Tuberculosis Sister Lung cancer Sister Colon cancer Maternal Grandmother Diabetes Daughter Multiple sclerosis [place] Sister Lung cancer Social History Household Members: Children Household Members Other:: daughter Housing: Apartment Alcohol intake: former Patient Tobacco Use Status: Former Tobacco user Tobacco use type: Cigarette e-Cigarette/Vaping Use: Never Used Second Hand Smoke Exposure: No service: No Current occupational status: employed Current occupation: [employer] Current occupational exposures/hazards: No Cognitive needs: No Hearing needs: No Vision needs: No Review of Systems Const Details: Negative for appetite change, weight change, fever, chills, malaise and fatigue Eyes Details: Negative for vision change, dry eyes,headaches and dizziness Details: Negative for dysuria, hematuria, nocturia, decreased force/flow and genital discharge Endo Details: Negative for polyuria and polydypsia Luis Manuel/Lymph Details: Negative for excessive bruising or bleeding. Physical Exam Vital Signs: Last Vital Signs Temp 97.7 F 08/26/23 09:36 Pulse 82 08/26/23 09:36 BP 127/82 08/26/23 09:36 Pulse Ox 97 08/26/23 09:36 Oxygen Delivery Method Room Air 08/26/23 09:36 BMI result Body Mass Index 41.1 APPEARANCE: Patient in no acute distress EYES no redness, pupils equal and reactive to light, eyelids normal. No temporal artery tenderness, redness or swelling. EXTREMITIES: Some scattered nontender varicose veins in the legs. This is more prominent on the left. No edema. There is no tenderness on the right lateral calf and lower right leg. Both legs have some mild pretibial tenderness. She has no skin induration or swelling. She has normal peripheral pulses. NEURO: Oriented and alert x3. No focal weakness. Reflexes symmetric. Gait normal. SKIN: There are scattered spots of hyperpigmented skin over the upper and lower arms. These look like postinflammatory changes from a papular rash. No objective evidence of Raynaud's disease. JOINT EXAM:?? Cervical Spine: Mild pain with extremes of range of motion with some mild posterior cervical muscle tenderness. Thoracic Spine:.? No scoliosis.? No tenderness on palpation. Lumbar Spine:.? Alignment normal.? Lumbar pain with flexion at 45 degrees. There is positive straight leg raising on the left with buttock and back pain at 45 degrees. Chest Wall:.? No tenderness, swelling, increased warmth or erythema. Hands:.? Right: There is mild tenderness at the base of the thumb but minimal enlargement in that region. There is nontender bony enlargement at the thumb IP joint. Rest of joints have pain-free range of motion without triggering, soft tissue swelling, redness or warmth. There is no thenar atrophy or sensory loss. Left: Normal pain-free range of motion without tenderness, swelling, increased warmth or erythema. There is no sensory loss or thenar atrophy. Wrists:.? Mild pain with flexion extension at 80 degrees. There is no tenderness, soft tissue swelling, increased warmth or erythema. There is a negative Tinel sign positive Phalen's test. Elbows:. Normal pain-free range of motion without tenderness, swelling, increased warmth or erythema. Shoulders:. Mild discomfort with abduction 135 degrees or with extremes of rotation. Most of the discomfort is felt over the trapezius. There is mild anterior tenderness bilaterally without swelling, abductor weakness, or adenopathy. Hips:.? Right: Full range of motion without pain. Left: Mild lumbar discomfort with extremes of normal internal or external rotation. No groin pain with motion. Hip bursa:.? Mild bilateral trochanteric a a tenderness. Knees:.?? Normal pain-free range of motion without tenderness, swelling, increased warmth or erythema.? There is no effusion or crepitation Ankles: Left: Mild pain with extremes of normal inversion and eversion. There is slight lateral tenderness without redness or swelling. Right: Normal pain-free range of motion with patellofemoral crepitus and medial compartment tenderness. There is no effusion, soft tissue swelling, increased warmth or erythema. Feet:.? Normal pain-free range of motion without tenderness, swelling, increased warmth or erythema. Tender points: Mild tenderness to digital palpation at the right occiput, right trapezius, bilateral second rib, both lateral epicondyle, both knees, greater trochanter area bilaterally. ?? Results Reviewed Results Reviewed: Laboratory Tests 06/09/23 06/09/23 06/09/23 08:56 08:56 Unknown WBC 7.3 Hgb 12.9 ESR 11 Rheumatoid Factor < 13.0 Cycl Citrul Peptide IgG <16 GINA Screen NEGATIVE [address] [address] XRay Report Signed Patient: Felipa Buck MR#: [id number] : 1960 Age/Sex: 62 / F ADM Date: 06/25/[address]: Jose Miles MD Ordering Physician: Jose Miles MD Date of Service: 06/25/23 Procedure(s): XR tibia fibula RT 2V Accession Number(s): [id number] cc: Gina Beach MD; Jose Miles MD~ EXAMINATION: XR TIBIA AND FIBULA, RIGHT CLINICAL INFORMATION: Pain. COMPARISON: Right knee radiographs dated 05/20/2023. TECHNIQUE: AP and lateral views of the right tibia and fibula were obtained. FINDINGS: The bones and soft tissues are normal. No fracture. No osseous lesions. XR/XR tibia fibula RT 2V IMPRESSION: Normal right tibia and fibula. Dictated By: Joaquin Noriega MD Signed By: <Electronically signed by Joaquin Noriega MD in OV> Assessment & Plan Assessment & Plan (1) Osteoarthritis of lumbar spine: Code(s): M47.816 - Spondylosis without myelopathy or radiculopathy, lumbar region (2) Osteoarthritis of knees, bilateral: Code(s): M17.0 - Bilateral primary osteoarthritis of knee (3) Fibromyalgia: Code(s): M79.7 - Fibromyalgia Plan Once again I do not see any signs of an active inflammatory arthritis. The blood work looked okay. The x-rays have shown some minimal OA in the knees. She undoubtedly has some OA in the lumbar spine region. There are many tender points so I think there is some underlying fibromyalgia. I gave her some written information on fibromyalgia to review. She seems to get a paradoxical reaction to the gabapentin in that it made her stay up all night. Will see if we can improve her symptoms at night with the use of tizanidine 2-4 mg. Follow-up in 6 months seems reasonable. Medications: New tizanidine 2 - 4 mg (1 - 2 x 2 mg) PO BEDTIME PRN 30 tabs 2RF muscle spasticity M79.7 - Fibromyalgia Coding Level of Care Code Est Pt Level 3 (67128) Diagnoses Osteoarthritis of lumbar spine M47.816 Osteoarthritis of knees, bilateral M17.0 Fibromyalgia M79.7
== END 2023-08-26 10:32 | disposition home or self-care (01) ==
PROVIDERS: PCP Internal Medicine; Visit Provider Internal Medicine Rheumatology
DX: M47.816 Spondylosis without myelopathy or radiculopathy, lumbar region (principal); M17.0 Bilateral primary osteoarthritis of knee; M79.7 Fibromyalgia
CPT/HCPCS: 99213

== ENCOUNTER → 2023-08-26 09:32 | Outpatient (BNVA) | payer OTHER, SELFPAY | PROVIDERS: PCP Internal Medicine; Visit Provider Internal Medicine Rheumatology | DX: M47.816 Spondylosis without myelopathy or radiculopathy, lumbar region (principal); M17.0 Bilateral primary osteoarthritis of knee; M79.7 Fibromyalgia | CPT/HCPCS: 99212 ==

== ENCOUNTER → 2023-12-02 09:48 | Outpatient (BNVA) | payer OTHER, SELFPAY | PROVIDERS: PCP Internal Medicine; Visit Provider Physician Assistant Surgical ==

== ENCOUNTER 2023-12-25 10:44 | Outpatient (AMB) | payer OTHER, SELFPAY ==
--- NOTE | 2023-12-25 10:53 | A.OFFVIS_ITS ---
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 SHe is clear she does NOT want bariatric surgery.Her goal is to weigh 150 lbs. Her blood sugar is elevated and ws told to come here for weight loss, has not watched our intor video. She has tried multiple methods of weight loss including diet and exericse without permanent results. She lives with her disabled daughter. She works as her daughters [employer]. She wakes at: 7am, bed at 11 pm - wakes up multiple times to take care of her daughter. Breakfast: 8:30 am - 2 eggs with piece of bread with ham and cheese. Coffee - diet creamer Lunch: 1:30 pm - meat with salad, rice or root vegetables or pasta. water Dinner: 5:30 pm - fruit only or may have same as lunch but smaller portions. After dinner: fruit or yogurt or jello Other snacks: fruit - 3-4 times per day, trying to decrease. Liquids: soda 1-2 times per week.no fruitjuice Alcohol intake: none, tobacco: none, marijuana: none Exercise: gym 2- 6 d/ week. treadmill - speed2.5, incline 0- 4, anaya 150 calories over 30 minutes. Alternates -Elliptical - 200 calories. Bike - 100 calories only or stepper. Also use abd machine - 40 lbs, 45 reps. Last mammogram: last year NOEMY: 4 ESS:17 GERD:25 QOL:73 [facility] Medical History (Updated 12/25/23 @ 11:02 by Brandy Rinaldi PA-C) Impaired glucose tolerance Right ankle pain Right leg pain Class 2 obesity with body mass index (BMI) of 39.0 to 39.9 in adult Heel pain Chest pain at rest GERD (gastroesophageal reflux disease) Surgical History History of hysterectomy History of incisional hernia repair Family History Father Tuberculosis Mother Tuberculosis Sister Lung cancer Sister Colon cancer Maternal Grandmother Diabetes Daughter Multiple sclerosis [place] Sister Lung cancer Social History Household Members: Children Household Members Other:: daughter Housing: Apartment Alcohol intake: former Patient Tobacco Use Status: Former Tobacco user Tobacco use type: Cigarette e-Cigarette/Vaping Use: Never Used Second Hand Smoke Exposure: No service: No Current occupational status: employed 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 Current occupational exposures/hazards: No Cognitive needs: No Hearing needs: No Vision needs: No Physical Exam Vital Signs: Last Vital Signs Temp 97.5 F 12/25/23 10:59 Pulse 96 12/25/23 10:59 BP 125/67 12/25/23 10:59 Pulse Ox 96 12/25/23 10:59 Oxygen Delivery Method Room Air 12/25/23 10:59 BMI result Body Mass Index 40.5 Assessment & Plan Assessment & Plan (1) Morbid obesity with BMI of 40.0-44.9, adult: Code(s): E66.01 - Morbid (severe) obesity due to excess calories; Z68.41 - Body mass index [BMI] 40.0-44.9, adult Plan: This is a 63 yo woman with morbid obesity and multiple medical conditions associated with obesity who wants to start MWL program to loose 60 lbs. Pt understands that she qualifies for bariatric surgery but is not interested in this method. She will watch our intro video and also our HFL classes. 1. Adequate sleep of 7-8 hours per night discussed 2. Healthy meal plan - stop skipping meals and eating fruit multiple times per day All meals/MR's need to take 20 minutes to complete. Pt states she does not want protein shakes and is reluctant to have protein bars. 8:30 am - 2 eggs with 1/2 vegetables, with coffee 1 pm - 8 forks protein, 8 forks vegetble and 1 serving fruit 5:30 pm- dinner of 10 forks lean protein, 1 forks vegetable 9pm - bar or yogurt Exercise - cardio - at least 4 times per week. Etither cardio machine for 300 calories or videos at home for 300 calories. Weights - lower weights 20 - 30 lbs for 50 reps each. Pt will purchase body composition analyzer (recommended list given to patient) and weight herself weekly. Next appt with PA in 4 weeks. Patient is morbidly obese and is not considered stable at this time.?I spent a total of 60 minutes reviewing/updating records, examining the patient and counseling the patient on weight management as detailed above. (2) Fibromyalgia: Code(s): M79.7 - Fibromyalgia (3) GERD (gastroesophageal reflux disease): Code(s): K21.9 - Gastro-esophageal reflux disease without esophagitis Qualifiers: Esophagitis presence: esophagitis presence not specified Qualified Code(s): K21.9 - Gastro-esophageal reflux disease without esophagitis (4) Pure hypercholesterolemia: Code(s): E78.00 - Pure hypercholesterolemia, unspecified Plan see above Coding Level of Care Code New Pt Level 5 (22362) Diagnoses Morbid obesity with BMI of 40.0-44.9, adult E66.01; Z68.41 Fibromyalgia M79.7 Gastroesophageal reflux disease, unspecified whether esophagitis present K21.9 Esophagitis presence: esophagitis presence not specified Pure hypercholesterolemia E78.00
[2023-12-25 10:59] VITALS: BP 125/67; PULSE 96; TEMP 36.4; O2SAT 96; BMI 40.5
== END 2023-12-25 12:00 | disposition home or self-care (01) ==
PROVIDERS: PCP Internal Medicine; Visit Provider Physician Assistant
DX: E66.01 Morbid (severe) obesity due to excess calories (principal); Z68.41 Body mass index [BMI] 40.0-44.9, adult; M79.7 Fibromyalgia; K21.9 Gastro-esophageal reflux disease without esophagitis; E78.00 Pure hypercholesterolemia, unspecified
CPT/HCPCS: 99205

== ENCOUNTER → 2023-12-25 10:44 | Outpatient (BNVA) | payer OTHER, SELFPAY | PROVIDERS: PCP Internal Medicine; Visit Provider Physician Assistant | DX: E66.01 Morbid (severe) obesity due to excess calories (principal); Z68.41 Body mass index [BMI] 40.0-44.9, adult; M79.7 Fibromyalgia; K21.9 Gastro-esophageal reflux disease without esophagitis; E78.00 Pure hypercholesterolemia, unspecified | CPT/HCPCS: 99202 ==

== ENCOUNTER 2024-01-22 10:41 | Outpatient (AMB) | payer OTHER, SELFPAY ==
--- NOTE | 2024-01-22 10:42 | MHC.OFFVISWM ---
Intake VS Expanded 01/22/24 11:13 BP 138/69 Blood Pressure Location Rt brachial Blood Pressure Position Sitting Pulse 79 Pulse Source Pulse Oximeter Temp 96.2 F L Temperature Source Tympanic Pulse Oximetry 98 Oxygen Delivery Method Room Air Height 5 ft Weight 204 lb 9.6 oz BMI 40.0 Body Fat % 38.7 Body Fat Mass 79.2 Fat Free Mass 112.0 Visceral Fat Rating 15.0 Body Water % 38.7 Body Water Mass 79.2 Muscle Mass/Score 106.2 Basal Metabolic Rate/Score 1,563 Intake Visit Reasons: (OV) F/U MWL Allergies epinephrine [EPINEPHRINE] Allergy (Intermediate, Verified 01/22/24 11:03) SWELLING Penicillins [PCN] Allergy (Intermediate, Verified 01/22/24 11:03) SWELLING contrast dye Allergy (Unknown, Verified 01/22/24 11:03) swelling famotidine Adverse Reaction (Intermediate, Verified 01/22/24 11:03) Abdominal Pain meloxicam Adverse Reaction (Intermediate, Verified 01/22/24 11:03) Dizziness Medication List - Last Reconciled 01/22/24 by APRIL Katz omeprazole 20 mg PO DAILY 90 days HPI HPI Comments History of Present Illness Details Pt presents in followup for MWL. Visit #2. Starting weight: 207.6 Weight change: -3lbs Current meal plan: 8:30 am - 2 eggs with 1/2 vegetables, with coffee 1 pm - 8 forks protein, 8 forks vegetable and 1 serving fruit 5:30 pm- dinner of 10 forks lean protein, 10 forks vegetable 9pm - bar or yogurt Exercise- at last visit was given the following recommendation- Cardio - at least 4 times per week. Either cardio machine for 300 calories or videos at home for 300 calories. Weights- lower weights 20 - 30 lbs for 50 reps each. Pt wants to stop protein bars. She tried the ones recommended but they had sucralose which she reports makes her dizzy. She does not want to use any brands. She does not want to eat anything at 9pm due to reflux. Has been having an Equate shake with 1 scoop in 8oz Lactaid milk instead of lunchtime meal, 12:30pm. . [facility] Medical History (Updated 12/25/23 @ 11:02 by Brandy Rinaldi PA-C) Impaired glucose tolerance Right ankle pain Right leg pain Class 2 obesity with body mass index (BMI) of 39.0 to 39.9 in adult Heel pain Chest pain at rest GERD (gastroesophageal reflux disease) Surgical History History of hysterectomy History of incisional hernia repair Family History Father Tuberculosis Mother Tuberculosis Sister Lung cancer Sister Colon cancer Maternal Grandmother Diabetes Daughter Multiple sclerosis [place] Sister Lung cancer Social History Household Members: Children Household Members Other:: daughter Housing: Apartment Alcohol intake: former Patient Tobacco Use Status: Former Tobacco user Tobacco use type: Cigarette e-Cigarette/Vaping Use: Never Used Second Hand Smoke Exposure: No service: No Current occupational status: employed 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 Current occupational exposures/hazards: No Cognitive needs: No Hearing needs: No Vision needs: No Physical Exam Vital Signs: Last Vital Signs Temp 96.2 F L 01/22/24 11:13 Pulse 79 01/22/24 11:13 BP 138/69 01/22/24 11:13 Pulse Ox 98 01/22/24 11:13 Oxygen Delivery Method Room Air 01/22/24 11:13 BMI result Body Mass Index 40.0 Assessment & Plan Assessment & Plan (1) Morbid obesity with BMI of 40.0-44.9, adult: Code(s): E66.01 - Morbid (severe) obesity due to excess calories; Z68.41 - Body mass index [BMI] 40.0-44.9, adult (2) Pure hypercholesterolemia: Code(s): E78.00 - Pure hypercholesterolemia, unspecified (3) Fibromyalgia: Code(s): M79.7 - Fibromyalgia (4) Impaired glucose tolerance: Code(s): R73.02 - Impaired glucose tolerance (oral) (5) GERD (gastroesophageal reflux disease): Code(s): K21.9 - Gastro-esophageal reflux disease without esophagitis Qualifiers: Esophagitis presence: esophagitis presence not specified Qualified Code(s): K21.9 - Gastro-esophageal reflux disease without esophagitis Plan New meal plan based on pt's preferences: 8:30 am - 2 eggs with 1/2 vegetables, with coffee 12:30pm- Equate shake with 1 scoop in 8oz Lactaid (23g) goes to gym 3pm- same shake 5:30 pm- dinner of 7 forks lean protein, 7 forks vegetable Continue exercise regimen. Labs ordered. RTC 1 month. Mealplan texted to pt and encouraged her to reach out between visits with any questions. Patient is morbidly obese and is not considered stable at this time. I spent a total of 30 minutes reviewing/updating records, examining the patient and counseling the patient on weight management as detailed above. Orders: Orders Hemoglobin A1c Today E66.01 - Morbid (severe) obesity due to excess calories, R73.02 - Impaired glucose tolerance (oral), Z68.41 - Body mass index [BMI] 40.0-44.9, adult Complete Blood Count Auto Diff Today E66.01 - Morbid (severe) obesity due to excess calories, R73.02 - Impaired glucose tolerance (oral), Z68.41 - Body mass index [BMI] 40.0-44.9, adult Vitamin B12 and Folate Today E66.01 - Morbid (severe) obesity due to excess calories, R73.02 - Impaired glucose tolerance (oral), Z68.41 - Body mass index [BMI] 40.0-44.9, adult C Reactive Protein Today E66.01 - Morbid (severe) obesity due to excess calories, R73.02 - Impaired glucose tolerance (oral), Z68.41 - Body mass index [BMI] 40.0-44.9, adult Vitamin B1 Today E66.01 - Morbid (severe) obesity due to excess calories, R73.02 - Impaired glucose tolerance (oral), Z68.41 - Body mass index [BMI] 40.0-44.9, adult Vitamin A Today E66.01 - Morbid (severe) obesity due to excess calories, R73.02 - Impaired glucose tolerance (oral), Z68.41 - Body mass index [BMI] 40.0-44.9, adult TSH reflex Free T4 Today E66.01 - Morbid (severe) obesity due to excess calories, R73.02 - Impaired glucose tolerance (oral), Z68.41 - Body mass index [BMI] 40.0-44.9, adult Vitamin D 25-OH Total Today E66.01 - Morbid (severe) obesity due to excess calories, R73.02 - Impaired glucose tolerance (oral), Z68.41 - Body mass index [BMI] 40.0-44.9, adult Insulin Today E66.01 - Morbid (severe) obesity due to excess calories, R73.02 - Impaired glucose tolerance (oral), Z68.41 - Body mass index [BMI] 40.0-44.9, adult Lipid Panel Today E66.01 - Morbid (severe) obesity due to excess calories, R73.02 - Impaired glucose tolerance (oral), Z68.41 - Body mass index [BMI] 40.0-44.9, adult IRON PROFILE Today E66.01 - Morbid (severe) obesity due to excess calories, R73.02 - Impaired glucose tolerance (oral), Z68.41 - Body mass index [BMI] 40.0-44.9, adult Comprehensive Met. Panel Today E66.01 - Morbid (severe) obesity due to excess calories, R73.02 - Impaired glucose tolerance (oral), Z68.41 - Body mass index [BMI] 40.0-44.9, adult Zinc Today E66.01 - Morbid (severe) obesity due to excess calories, R73.02 - Impaired glucose tolerance (oral), Z68.41 - Body mass index [BMI] 40.0-44.9, adult Ferritin Today E66.01 - Morbid (severe) obesity due to excess calories, R73.02 - Impaired glucose tolerance (oral), Z68.41 - Body mass index [BMI] 40.0-44.9, adult Coding Level of Care Code Est Pt Level 4 (16174) Diagnoses Morbid obesity with BMI of 40.0-44.9, adult E66.01; Z68.41 Pure hypercholesterolemia E78.00 Fibromyalgia M79.7 Impaired glucose tolerance R73.02 Gastroesophageal reflux disease, unspecified whether esophagitis present K21.9 Esophagitis presence: esophagitis presence not specified
[2024-01-22 11:13] VITALS: BP 138/69; PULSE 79; TEMP 35.7; O2SAT 98; BMI 40.0
== END 2024-01-22 11:54 | disposition home or self-care (01) ==
PROVIDERS: PCP Internal Medicine; Visit Provider Physician Assistant Surgical
DX: E66.01 Morbid (severe) obesity due to excess calories (principal); Z68.41 Body mass index [BMI] 40.0-44.9, adult; E78.00 Pure hypercholesterolemia, unspecified; M79.7 Fibromyalgia; R73.02 Impaired glucose tolerance (oral); K21.9 Gastro-esophageal reflux disease without esophagitis
CPT/HCPCS: 99214

== ENCOUNTER → 2024-01-22 10:41 | Outpatient (BNVA) | payer OTHER, SELFPAY | PROVIDERS: PCP Internal Medicine; Visit Provider Physician Assistant Surgical | DX: E66.01 Morbid (severe) obesity due to excess calories (principal); R73.02 Impaired glucose tolerance (oral); K21.9 Gastro-esophageal reflux disease without esophagitis; M79.7 Fibromyalgia; Z68.41 Body mass index [BMI] 40.0-44.9, adult; E78.00 Pure hypercholesterolemia, unspecified | CPT/HCPCS: 99212 ==

== ENCOUNTER 2024-01-29 09:00 | Outpatient (REF) | payer OTHER, SELFPAY ==
[2024-01-29 09:23] LABS: MANUAL DIFF FLAG NO
[2024-01-29 09:35] LABS: Basophils Percent Auto 0.5 % (0-2); Eosinophils Absolute Auto 0.3 X10*3/uL (0.0-0.4); Hematocrit 41.8 % (37.0-47.0); Imm Gran Abs Auto 0.02 X10*3/uL (0.00-0.03); Imm Gran Pct Auto 0.3 % (0.0-0.4); Lymphocytes Absolute Auto 2.5 X10*3/uL (1.2-4.9); Lymphocytes Percent Auto 38.1 % (20-40); Mean Corpuscular HGB Conc 31.1 g/dl (31.0-35.0); Mean Corpuscular Volume 73.9 fL (80.0-98.0); Mean Platelet Volume 10.4 fL (9.4-12.3); Monocytes Absolute Auto 0.5 X10*3/uL (0.1-1.2); Monocytes Percent Auto 8.1 % (2-11); Neutrophils Absolute Auto 3.2 x10*3/uL (2.0-8.3); Platelet Count 278 X10*3/uL (160-400); Red Blood Count 5.66 X10*6/uL (4.20-5.50); Red Cell Distribution Width 17.2 % (11.0-16.0); White Blood Count 6.7 X10*3/uL (4.8-10.8)
[2024-01-29 09:58] LABS: Estimated Average Glucose 151 mg/dL; Hemoglobin A1c % 6.9 % (<6.0)
[2024-01-29 10:12] LABS: Alanine Aminotransferase 29 U/L (0-31); Albumin Level 4.3 g/dL (3.5-5.0); Alkaline Phosphatase 84 U/L (39-117); Anion Gap 11 (12-20); Aspartate Amino Transferase 29 U/L (5-31); Bilirubin Total 0.3 mg/dL (0.0-1.0); Blood Urea Nitrogen 9 mg/dL (9-16); C Reactive Protein 0.58 mg/dL (< or = 0.50); Carbon Dioxide 30 mmol/L (22-29); Chloride 105 mmol/L (96-108); Cholesterol 193 mg/dL (<200); Estimated Glomerular Filt Rate > 60; Glucose Random 129 mg/dL (60-115); HDL Cholesterol 35 mg/dL (>40); Iron 30 mcg/dL (30-160); LDL Cholesterol Calculated 123 mg/dL (<100); Percent Iron Saturation 7 % (15-50); Potassium 4.1 mmol/L (3.3-5.1); Sodium 142 mmol/L (135-145); Total Iron Binding Capacity 425 mcg/dL (228-428); Total Protein 7.9 g/dL (6.5-8.0); Triglycerides 176 mg/dL (<150); Unsaturated Iron Binding 395 ug/dL
[2024-01-29 10:27] LABS: Ferritin 12 ng/mL (10-250); Insulin 17 uU/mL (2-29); TSH reflex Free T4 2.04 uIU/mL (0.32-4.0); Vitamin D 25-OH Total 51.8 ng/mL (>30)
[2024-01-29 17:53] LABS: Folate 9.3 ng/mL (> or = 4.0); Vitamin B12 351 pg/mL (200-900)
[2024-02-02 12:03] LABS: Vitamin A 42 mcg/dL (38-98)
[2024-02-02 12:48] LABS: Zinc 74 mcg/dL (60-130)
[2024-02-03 13:57] LABS: Vitamin B1 12 nmol/L (8-30)
== END 2024-01-29 09:01 | disposition home or self-care (01) ==
LOC: HO.LAB 09:00
PROVIDERS: PCP Internal Medicine; Visit Provider Physician Assistant Surgical
DX: R73.02 Impaired glucose tolerance (oral) (principal); E66.01 Morbid (severe) obesity due to excess calories; Z68.41 Body mass index [BMI] 40.0-44.9, adult
CPT/HCPCS: 36415; 80053; 80061; 82306; 82607; 82728; 82746; 83036; 83525; 83540; 84425; 84443; 84590; 84630; 85025; 86140

== ENCOUNTER 2024-02-17 09:49 | Outpatient (REF) | payer OTHER, SELFPAY ==
--- NOTE | ~2024-02-17 | MM_ITS ---
EXAMINATION: MM SCREENING DIGITAL BREAST TOMOSYNTHESIS, BILATERAL CLINICAL INFORMATION: Screening. Asymptomatic. COMPARISON: Mammography: 02/11/2023, 10/25/2020, 06/24/2018, 06/10/2017 TECHNIQUE: Digital breast tomosynthesis is performed in both the craniocaudal and mediolateral oblique views along with computer-aided detection (CAD). Synthesized 2D images are generated from the tomosynthesis. FINDINGS: There are scattered areas of fibroglandular density (ACR BI-RADS breast composition Category b). There are stable loosely grouped benign type calcifications in the upper outer left breast, posterior one third. Benign calcifications also noted in the right breast. There is a stable lymph node in the right breast axillary tail. There are 2 stable nodular asymmetry is in the central and medial right breast, middle one third. These have remained unchanged and are benign. There are no suspicious masses, suspicious grouped calcifications, or areas of architectural distortion in either breast. The parenchymal pattern is stable from prior exams. No suspicious skin or axillary abnormalities. MM/MM tomosynthesis screening BI IMPRESSION: No mammographic evidence of malignancy. No significant interval change. ASSESSMENT: BI-RADS BI-RADS 2 - Benign Findings RECOMMENDATION: Routine annual mammography screening. 1 year F/U This examination should not preclude the clinical evaluation of a suspicious palpable abnormality. This patient's information was entered into a reminder system with a target due date for their next mammogram.
== END 2024-02-17 09:50 | disposition home or self-care (01) ==
LOC: HO.MAMMO 09:49
PROVIDERS: PCP Internal Medicine; Visit Provider Internal Medicine
DX: Z12.31 Encounter for screening mammogram for malignant neoplasm of breast (principal)
CPT/HCPCS: 77063; 77067

== ENCOUNTER → 2024-02-17 10:00 | Outpatient (BNV) | payer OTHER, SELFPAY | PROVIDERS: PCP Internal Medicine; Visit Provider Radiology Diagnostic Radiology | DX: Z12.31 Encounter for screening mammogram for malignant neoplasm of breast (principal) | CPT/HCPCS: 77063; 77067 ==

== ENCOUNTER 2024-02-24 12:29 | Outpatient (AMB) | payer OTHER, SELFPAY ==
--- NOTE | 2024-02-24 12:31 | MHC.OFFVIS ---
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 Miles, presents today for OA and Fibromyalgia follow up. Reports discontinuing Tizanidine due to side effects, tachycardia and dizziness. Rate Setter Required: Yes Rate Setter Language: Agriculture Consultant Name: Jada [id number] Accompanied by: Self / Same As Patient Allergies contrast dye Allergy (Intermediate, Verified 02/24/24 12:32) swelling epinephrine [EPINEPHRINE] Allergy (Intermediate, Verified 02/24/24 12:32) SWELLING Penicillins [PCN] Allergy (Intermediate, Verified 02/24/24 12:32) SWELLING famotidine Adverse Reaction (Intermediate, Verified 02/24/24 12:32) Abdominal Pain meloxicam Adverse Reaction (Intermediate, Verified 02/24/24 12:32) Dizziness tizanidine Adverse Reaction (Intermediate, Verified 02/24/24 12:42) Palpitations, dizziness HPI Comments Details: Ms. Doherty 63 yoF returns for evaluation of her osteoarthritis and fibromyalgia. There is no joint swelling. Other areas of pain that are less problematic include the hands, shoulders, arms, lower back and lateral hips. She is currently on no medication. --since the last visit still lower back, ankle and wrist pain; swelling to ankles which swells as the day progresses but not there in the am --shares the side effects of gabapentin. --tizanadine side effects dizziness, tachy and headache. --occasional muscle cramp to left shoulder area 08/2023 Dr. Miles: The patient returns for evaluation of her osteoarthritis and fibromyalgia. She was having an unusual pain in the right lateral calf region at her last visit. We did an x-ray of the area that was normal. She says the pain is less severe and that comes and goes. I suggested gabapentin at night for it but she claims she had a paradoxical reaction to the gabapentin keeping her up at night. She remains on ibuprofen if needed although he takes limited doses because of GERD symptoms in spite of her omeprazole. There is no joint swelling. Other areas of pain that are less problematic include the hands, shoulders, arms, lower back and lateral hips. PENDING SALE TO [facility] Medical History (Updated 03/21/24 @ 23:47 by ARGENTINA Ahn-ALEKSANDER) Elevated cholesterol RLS (restless legs syndrome) Osteopenia Fibromyalgia Arthritis Right ankle pain Right leg pain Class 2 obesity with body mass index (BMI) of 39.0 to 39.9 in adult Impaired glucose tolerance Heel pain GERD (gastroesophageal reflux disease) Surgical History (Updated 02/09/24 @ 13:53 by Sharonda Dupont RN) H/O colonoscopy History of History of hysterectomy History of incisional hernia repair Family History Father Tuberculosis Mother Tuberculosis Sister Lung cancer Sister Colon cancer Maternal Grandmother Diabetes Daughter Multiple sclerosis [place] Sister Lung cancer Social History Household Members: Children Household Members Other:: daughter Housing: Apartment Alcohol intake: former Patient Tobacco Use Status: Former Tobacco user Tobacco use type: Cigarette e-Cigarette/Vaping Use: Never Used Second Hand Smoke Exposure: No service: No Current occupational status: employed 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 No temporal artery tenderness, redness or swelling. HEART:? Regular rhythm, S1-S2 heard, no murmurs, rubs or gallops. LUNG:? Clear to percussion and auscultation EXTREMITIES: Some scattered nontender varicose veins in the legs. This is more prominent on the left. No edema. There is no tenderness on the right lateral calf and lower right leg. Both legs have some mild pretibial tenderness. She has no skin induration or swelling. She has normal peripheral pulses. NEURO: Oriented and alert x3. No focal weakness. Reflexes symmetric. Gait normal. SKIN: There are scattered spots of hyperpigmented skin over the upper and lower arms. These look like postinflammatory changes from a papular rash. No objective evidence of Raynaud's disease. JOINT EXAM:?? Cervical Spine: Mild pain with extremes of range of motion with some mild posterior cervical muscle tenderness. Thoracic Spine:.? No scoliosis.? No tenderness on palpation. Lumbar Spine:.? Alignment normal.? Lumbar pain with flexion at 45 degrees. There is positive straight leg raising on the left with buttock and back pain at 45 degrees. Chest Wall:.? No tenderness, swelling, increased warmth or erythema. Hands:.? Right: There is mild tenderness at the base of the thumb but minimal enlargement in that region. There is nontender bony enlargement at the thumb IP joint. Rest of joints have pain-free range of motion without triggering, soft tissue swelling, redness or warmth. There is no thenar atrophy or sensory loss. Left: Normal pain-free range of motion without tenderness, swelling, increased warmth or erythema. There is no sensory loss or thenar atrophy. Wrists:.? Mild pain with flexion extension at 80 degrees. There is no tenderness, soft tissue swelling, increased warmth or erythema. There is a negative Tinel sign positive Phalen's test. Elbows:. Normal pain-free range of motion without tenderness, swelling, increased warmth or erythema. Shoulders:. Mild discomfort with abduction 135 degrees or with extremes of rotation. Most of the discomfort is felt over the trapezius. There is mild anterior tenderness bilaterally without swelling, abductor weakness, or adenopathy. Hips:.? Right: Full range of motion without pain. Left: Mild lumbar discomfort with extremes of normal internal or external rotation. No groin pain with motion. Hip bursa:.? Mild bilateral trochanteric a a tenderness. Knees:.?? Normal pain-free range of motion without tenderness, swelling, increased warmth or erythema.? There is no effusion or crepitation Ankles: Left: Mild pain with extremes of normal inversion and eversion. There is slight lateral tenderness without redness or swelling. Right: Normal pain-free range of motion with patellofemoral crepitus and medial compartment tenderness. There is no effusion, soft tissue swelling, increased warmth or erythema. Feet:.? Normal pain-free range of motion without tenderness, swelling, increased warmth or erythema. Tender points: Mild tenderness to digital palpation at the right occiput, right trapezius, bilateral second rib, both lateral epicondyle, both knees, greater trochanter area bilaterally. ?? Results Reviewed Results Reviewed: Laboratory Tests 06/09/23 01/29/24 08:56 09:21 WBC 6.7 RBC 5.66 H Hgb 13.0 Hct 41.8 Creatinine 0.73 AST 29 ALT 29 C-Reactive Protein 0.58 H Rheumatoid Factor < 13.0 Assessment & Plan Assessment & Plan (1) Osteoarthritis of lumbar spine: Code(s): M47.816 - Spondylosis without myelopathy or radiculopathy, lumbar region Category: Medical Qualifiers: Spinal osteoarthritis complication: with radiculopathy Qualified Code(s): M47.26 - Other spondylosis with radiculopathy, lumbar region (2) Osteoarthritis of knees, bilateral: Code(s): M17.0 - Bilateral primary osteoarthritis of knee Category: Medical Qualifiers: Osteoarthritis type: primary Qualified Code(s): M17.0 - Bilateral primary osteoarthritis of knee (3) Fibromyalgia: Code(s): M79.7 - Fibromyalgia Category: Medical Plan #OA: Patient with OA to multiple sites. The x-rays have shown some minimal OA in the knees. She undoubtedly has some OA in the lumbar spine region and this is her main area aof concern. Patient desires to see Pain management for injections so a referral was sent. #/Fibromyalgia: There are many tender points so I think there is some underlying fibromyalgia. Patient did not tolerate Gabapentin or Tizanadine: she does not deaire to try anything at this point. I soent 20 minutes reviewing chart, evaluating patient and documenting Follow-up in 6 months Orders: Referrals Pain Management Referral M47.816 - Spondylosis without myelopathy or radiculopathy, lumbar region, M54.50 - Low back pain, unspecified, G89.29 - Other chronic pain, M79.7 - Fibromyalgia Coding Level of Care Code Est Pt Level 3 (78999) Complex EM visit Add On G2211 Diagnoses Osteoarthritis of spine with radiculopathy, lumbar region M47.26 Spinal osteoarthritis complication: with radiculopathy Primary osteoarthritis of both knees M17.0 Osteoarthritis type: primary Fibromyalgia M79.7
[2024-02-24 12:38] VITALS: BP 108/60; PULSE 84; O2SAT 97; BMI 40.5
== END 2024-02-24 13:28 | disposition home or self-care (01) ==
PROVIDERS: PCP Internal Medicine; Visit Provider Nurse Practitioner Family
DX: M47.26 Other spondylosis with radiculopathy, lumbar region (principal); M17.0 Bilateral primary osteoarthritis of knee; M79.7 Fibromyalgia
CPT/HCPCS: 99213; G2211

== ENCOUNTER → 2024-02-24 12:29 | Outpatient (BNVA) | payer OTHER, SELFPAY | PROVIDERS: PCP Internal Medicine; Visit Provider Nurse Practitioner Family | DX: M47.26 Other spondylosis with radiculopathy, lumbar region (principal); M17.0 Bilateral primary osteoarthritis of knee; M79.7 Fibromyalgia | CPT/HCPCS: 99212 ==

== ENCOUNTER 2024-03-03 13:44 | Outpatient (AMB) | payer OTHER, SELFPAY ==
--- NOTE | 2024-03-03 13:53 | MHC.OFFVIS ---
Vital Signs 03/03/24 14:02 Height 5 ft Weight 206 lb 2 oz BMI 40.3 BP 138/74 Blood Pressure Location Lt brachial Position Sitting Respiration 18 Pulse 69 Pulse Source Pulse Oximeter Pulse Oximetry (%) 97 Oxygen Delivery Method Room Air Intake Visit Reasons: Spondylosis w/o Myelopathy or Radiculopathy Lumbar Allergies contrast dye Allergy (Intermediate, Verified 02/24/24 12:32) swelling epinephrine [EPINEPHRINE] Allergy (Intermediate, Verified 02/24/24 12:32) SWELLING Penicillins [PCN] Allergy (Intermediate, Verified 02/24/24 12:32) SWELLING famotidine Adverse Reaction (Intermediate, Verified 02/24/24 12:32) Abdominal Pain meloxicam Adverse Reaction (Intermediate, Verified 02/24/24 12:32) Dizziness tizanidine Adverse Reaction (Intermediate, Verified 02/24/24 12:42) Palpitations, dizziness HPI Comments Details: Felipa is a very pleasant 63-year-old female who presents to the office today for evaluation and management of her chronic lower back pain. Patient reports that she has been suffering with this pain for many years, she was told by Rheumatology that she has arthritis and fibromyalgia. Referred here for treatment of her lower back pain. Endorses midline axial back pain without radiation. Denies pain down either lower extremity. Denies numbness, tingling or weakness of lower extremity. Denies inciting injury, trauma, fall, accident. Currently taking ibuprofen and Tylenol with minimal relief. She has tried multiple medications in the past including tizanidine and gabapentin but they give her side effects including insomnia and tachycardia. She has not attempted physical therapy, chiropractor, acupuncture, massage or injections. Pain today is rated as an 8/10, constant. Pain is worse with activity, standing, sitting for too long and exercises. In terms of muscle damage condition is described as spasming, cramping, numb, tingling. Pain is negatively impacting patient's enjoyment of life, general activity, normal work, recreational activities and walking. Patient denies red flag symptoms including new loss of bowel, bladder or saddle anesthesia. Recent x-rays were reviewed, results of per below. [facility] Medical History (Updated 03/03/24 @ 14:38 by Dee Lin, DRAPERY MAKER, ELECTRONIC SCANNER OPERATOR) Elevated cholesterol RLS (restless legs syndrome) Osteopenia Fibromyalgia Arthritis Right ankle pain Right leg pain Class 2 obesity with body mass index (BMI) of 39.0 to 39.9 in adult Impaired glucose tolerance Heel pain GERD (gastroesophageal reflux disease) Surgical History (Updated 02/09/24 @ 13:53 by Sharonda Dupont RN) H/O colonoscopy History of History of hysterectomy History of incisional hernia repair Family History Father Tuberculosis Mother Tuberculosis Sister Lung cancer Sister Colon cancer Maternal Grandmother Diabetes Daughter Multiple sclerosis [place] Sister Lung cancer Social History Household Members: Children Household Members Other:: daughter Housing: Apartment Alcohol intake: former Patient Tobacco Use Status: Former Tobacco user Quit Date: >10 yr ago Tobacco use type: Cigarette e-Cigarette/Vaping Use: Never Used Second Hand Smoke Exposure: No service: No Current occupational status: employed 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 Answers questions appropriately. Fully engaged in examination. Skin: warm, dry, intact HEENT: Normocephalic. Hearing intact. Cardiac: External chest normal in appearance. Respiratory: No cough, audible wheezing or stridor. Abdomen: without gross distension. MS: No obvious swelling or deformities. Able to stand on bilateral tiptoes and bilateral heels.? Able to transition from sit to stand unassisted. Ambulates with bilaterally normal heel strike and toe off Bilateral lower extremity strength 5/5 Decreased lumbar range of motion, pain increased with flexion and extension. SLR with dorsiflexion negative bilaterally Nontender over PSIS bilaterally Tenderness midline lumbar vertebrae and lumbar paraspinal muscles Facet loading positive bilaterally Neurological: Oriented to person, place, time and situation. Thought process intact. Psychiatric: Appropriate mood and affect. Good judgment and insight. Results Reviewed Results Reviewed: 06/09/23 XR/XR lumbar spine 2-3 LUMBAR SPINE: Mild leftward curvature of the lumbar spine. Small rounded pelvic calcifications are likely vascular. Lumbar vertebral body heights and alignment are maintained. Mild degenerative changes in the lower lumbar spine. Lumbar disc space heights are preserved. Facet arthritis in the lower lumbar spine. RIGHT KNEE: Mild medial joint space narrowing. Tiny tricompartmental osteophytes. Trace joint effusion. LEFT KNEE: Small quadriceps enthesophyte. Mild medial joint space narrowing. Tiny tricompartmental osteophytes. Trace joint effusion. IMPRESSION: 1. Mild multilevel lumbar spondylosis. 2. Mild degenerative changes bilateral knees. Assessment & Plan Assessment & Plan (1) Lumbar spondylosis: Code(s): M47.816 - Spondylosis without myelopathy or radiculopathy, lumbar region Category: Medical Plan Patient presented to the office today for evaluation and management of her chronic lower back pain. Order placed for PT eval and treat, patient requesting location closer to her home. Will refer to [facility] in [place]. Lidocaine 5% patches, apply to most painful area on for 12 hours off for 12 hours Methocarbamol 500 mg p.o. t.i.d.. Patient advised on cautions for use. If no improvement with muscle relaxers and physical therapy will follow-up to further discuss injections. All questions and concerns were answered, patient with plan. Follow-up after physical therapy, sooner if needed. Orders: Orders PT Evaluation and Treatment Today M47.816 - Spondylosis without myelopathy or radiculopathy, lumbar region, M54.50 - Low back pain, unspecified Medications: New methocarbamol No driving while taking this medication. Do no take with alcohol or other DIRECTOR OF PEDIATRIC REHABILITATION Depressants 500 mg PO TID PRN 90 tabs 0RF muscle spasm lidocaine 5% leave on most painful area for up to 12 hrs 1 patch topical DAILY 30 ea 3RF Coding Level of Care Code New Pt Level 4 (96011) Diagnoses Lumbar spondylosis M47.816
[2024-03-03 14:02] VITALS: BP 138/74; PULSE 69; RESP 18; O2SAT 97; BMI 40.3
== END 2024-03-05 07:54 | disposition home or self-care (01) ==
PROVIDERS: PCP Internal Medicine; Referring Provider Nurse Practitioner Family; Visit Provider Registered Nurse Emergency
DX: M47.816 Spondylosis without myelopathy or radiculopathy, lumbar region (principal)
CPT/HCPCS: 99204

== ENCOUNTER → 2024-03-03 13:46 | Outpatient (BNVA) | payer OTHER, SELFPAY | PROVIDERS: PCP Internal Medicine; Referring Provider Nurse Practitioner Family; Visit Provider Registered Nurse Emergency | DX: M47.816 Spondylosis without myelopathy or radiculopathy, lumbar region (principal); M54.50 Low back pain, unspecified | CPT/HCPCS: 99202 ==

== ENCOUNTER 2024-05-03 12:06 | Day surgery (SDC) | payer OTHER, SELFPAY ==
[2024-02-09 13:53] VITALS: BMI 41.8
--- NOTE | 2024-02-09 15:30 | HO.ANESPROP2 ---
HPI - Anesthesia Eval Consult details Narrative: 63yo F for Upper Endoscopy and Colonoscopy REPLACED BY [facility] Active Problems Active Problems: All Active Problems Fibromyalgia (Acute) Leg pain, lateral (Acute) Osteoarthritis of lumbar spine (Acute) Osteoarthritis of knees, bilateral (Acute) Osteopenia (Acute) Morbid obesity with BMI of 40.0-44.9, adult (Acute) Carpal tunnel syndrome on both sides (Acute) Ankle pain, left (Acute) Knee pain, bilateral (Acute) Pure hypercholesterolemia (Acute) Elevated fasting glucose (Acute) Restless leg syndrome (Acute) Impaired glucose tolerance (Acute) Right ankle pain (Acute) Class 2 obesity with body mass index (BMI) of 39.0 to 39.9 in adult (Acute) GERD (gastroesophageal reflux disease) (Acute) Past Medical History Medical History (Updated 02/09/24 @ 13:49 by Sharonda Dupont RN) Elevated cholesterol RLS (restless legs syndrome) Osteopenia Fibromyalgia Arthritis Right ankle pain Right leg pain Class 2 obesity with body mass index (BMI) of 39.0 to 39.9 in adult Impaired glucose tolerance Heel pain GERD (gastroesophageal reflux disease) Family History Family History Father Tuberculosis Mother Tuberculosis Sister Lung cancer Sister Colon cancer Maternal Grandmother Diabetes Daughter Multiple sclerosis [place] Sister Lung cancer Surgical History Surgical History (Updated 02/09/24 @ 13:53 by Sharonda Dupont RN) H/O colonoscopy History of History of hysterectomy History of incisional hernia repair Social History Social History Household Members: Children Household Members Other:: daughter Housing: Apartment Alcohol intake: former Patient Tobacco Use Status: Former Tobacco user Quit Date: >10 yr ago Tobacco use type: Cigarette e-Cigarette/Vaping Use: Never Used Second Hand Smoke Exposure: No Use of substances other than those prescribed or required for medical reasons: No Advance Directives Information Provided: No Advance Directives on File: No service: No Current occupational status: employed 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 Current occupational exposures/hazards: No Cognitive needs: No Hearing needs: No Vision needs: No Meds Allergies Allergy/AdvReac Type Severity Reaction Status Date / Time contrast dye Allergy Intermediate swelling Verified 02/09/24 13:52 epinephrine [EPINEPHRINE] Allergy Intermediate SWELLING Verified 01/22/24 11:03 Penicillins [PCN] Allergy Intermediate SWELLING Verified 01/22/24 11:03 famotidine AdvReac Intermediate Abdominal Verified 01/22/24 11:03 Pain meloxicam AdvReac Intermediate Dizziness Verified 01/22/24 11:03 Exam Height,Weight and Vital Signs: Height 5 ft Weight 97.069 kg Assessment and Plan Assessment Anesthesia Assessment: Chart Reviewed
--- OUTSIDE RECORDS SUMMARY | 2024-05-03 12:08 | XMS_ITS ---
Author Organization [facility] Address [address] [place] [phone] Care Team Providers Care Front Counter Attendant Name Role Phone Gina Beach Primary Care Provider Unavailab Alexander [place] Unavailable [phone] REASON FOR VISIT SCREENING, FAMILY HISTORY OF CANCER, GERD Encounters Encounter Location Date Provider Diagnosis [facility] [address] [place] [id number] 05/03/2024 Alexander Hammer PLAN OF TREATMENT Next Appt Details Provider Name:Alexander Hammer , 05/03/2024 01:30:00 PM, [address] [facility] , [place], [place], [phone],
--- OUTSIDE RECORDS SUMMARY | 2024-05-03 12:09 | XMS_ITS ---
Author Organization [facility] Address [address] [place] [phone] Care Team Providers Care Electronic Technician Name Role Phone Gina Beach Primary Care Provider Unavailab Alexander [place] Unavailable [phone] REASON FOR VISIT RESCHEDULED PROCEDURE Encounters Encounter Location Date Provider Diagnosis [facility] [address] [facility] [address] [place] [phone] 02/10/2024 Alexander Hammer PLAN OF TREATMENT Next Appt Details Provider Name:Alexander Hammer , 05/03/2024 01:30:00 PM, [address] [place] [address] , [place], [place], [phone],
--- OUTSIDE RECORDS SUMMARY | 2024-05-03 12:09 | XMS_ITS | Patient Health Record ---
Author Organization [facility] Address [address] [place] [phone] Care Team Providers Care Procurement Coordinator Name Role Phone Gina Beach Primary Care Provider Alexander Mon[place] Unavailable [phone] ALLERGIES Allergen (clinical drug ingredient) Drug/Non Drug Allergy documented on EMR Reaction Allergy Type Onset Date Status Penicillin Unknown Drug Allergy Active tinture iodine (uncoded) Unknown Allergy Active REASON FOR REFERRAL No Information MEDICATIONS Medication SIG (Take, Route, Frequency, Duration) Notes Start Date End Date Status Omeprazole 20 MG 1 tablet 30 minutes before morning meal Orally Once a day Active Vitamin D Active Calcium Active Dulcolax (colon prep) 5 MG take at 3:00 p.m and 7:00p.m. Orally two tablets twice a day for one day for 1 day 11/14/2023 Active MiraLax (colon prep) 17 GM/SCOOP 1 238GM bottle mixed with Gatorade or Crystal Light Orally begin at 5:00 p.m. the day before the procedure for 1 day 11/14/2023 Active SOCIAL HISTORY Tobacco Use: Social History Observation Description Date Details (start date - stop date) Former Smoker NA - NA Sex Assigned At : Social History Observation Description Sex Assigned At Unknown Tobacco Use/Smoking Question Answer Notes Patient is a former smoker How long has it been since you last smoked? > 10 years Alcohol Screen Question Answer Notes Did you have a drink contain ing alcohol in the past year? Yes How often did you have a dri nk containing alcohol in the past year? Monthly or less (1 point) How many drinks did you have on a typical day when you were drinking in the past year? 1 or 2 drinks (0 point) How often did you have 6 or more drinks on one occasion in the past year? Never (0 point) Points 1 Interpretation Negative PROBLEMS Problem Type ICD Code Onset Dates Problem Status W/U Status Risk SNOMED Code Notes Problem Encounter for screening for malignant neoplasm of colon (Z12.11) Active confirmed 729291002 Problem Preprocedural examination (Z01.818) Active confirmed 561499649839345 Problem Family history of colon cancer (Z80.0) Active confirmed 340591833 Problem Gastroesophageal reflux disease, unspecified whether esophagitis present (K21.9) Active confirmed 951572637 VITAL SIGNS Temperature 97.7 degrees Fahrenheit 11/13/2023 Blood pressure diastolic 00 mm Hg 11/13/2023 Height 58 in 11/13/2023 Blood pressure systolic 00 mm Hg 11/13/2023 Weight 214 lbs 11/13/2023 BMI 44.72 kg/m2 11/13/2023 Encounters Encounter Location Date Provider Diagnosis [facility] [place] [facility] [address] [place] [id number] 02/11/2024 Alexander Hammer [facility] [address] [place] [id number] 05/03/[address] [facility] [address] [place] [phone] 11/13/2023 Alexander Hammer Encounter for screen ing for malignant neoplasm of colon Z12.11 ; Gastroesophageal reflux disease, unspecified whether esophagitis present K21.9 and Family history of colon cancer Z80.0 [facility] [address] [place] [phone] 11/13/[address] [facility] [address] [place] [phone] 02/10/2024 Alexander Hammer ASSESSMENTS Encounter Date Diagnosis Assessment Notes Treatment Notes Treatment Clinical Notes 11/13/2023 Encounter for screen ing for malignant neoplasm of colon (ICD-10 - Z12.11) 11/13/2023 Gastroesophageal ref lux disease, unspecified whether esophagitis present (ICD-10 - K21.9) 11/13/2023 Family history of co suzette cancer (ICD-10 - Z80.0) PLAN OF TREATMENT Future Test Test Name Order Date COLONOSCOPY 04/23/2018 UPPER GI ENDOSCOPY 11/13/2023 COLONOSCOPY 11/13/2023 Next Appt Details Provider Name:Alexander Hammer , 05/03/2024 01:30:00 PM, [address] [place] [address] , [place], [place], [phone], Insurance Providers Payer Name Payer Address Payer Phone Subscriber Number Group Number Insured Name Patient Relationship to Insured Coverage Start Date Coverage End Date [facility] [address] [address] [place], [place] [id number] FERNY SHULTZ Self - patient is the insured MEDICAL (GENERAL) HISTORY Medical History History ICD Code Denies [place],DM,CVA,Lung disease,renal dise ase Arthritis Negative screening colonoscopy in 05/2018 GERD Surgical History Surgery Date(Month/Year) IRAJ 2014 C-sections Umbilical hernia
--- OUTSIDE RECORDS SUMMARY | 2024-05-03 12:09 | XMS_ITS ---
Author Organization [facility] Address [address] [place] [phone] Care Team Providers Care Financial Management Analyst Name Role Phone Gina Beach Primary Care Provider Unavailab Alexander [place] Unavailable [phone] REASON FOR VISIT screening,fam hx colon ca,gerd Encounters Encounter Location Date Provider Diagnosis [facility] [place] Out[place] [address] [place] [id number] 02/11/2024 Alexander Hammer PLAN OF TREATMENT Next Appt Details Provider Name:Alexander Hammer , 05/03/2024 01:30:00 PM, [address] [facility] , [place], [place], [phone],
--- NOTE | 2024-05-03 13:19 | HO.ANESPROP2 ---
[facility] Active Problems Active Problems: All Active Problems Lumbar spondylosis (Acute) Fibromyalgia (Acute) Leg pain, lateral (Acute) Osteoarthritis of lumbar spine (Acute) Osteoarthritis of knees, bilateral (Acute) Osteopenia (Acute) Morbid obesity with BMI of 40.0-44.9, adult (Acute) Carpal tunnel syndrome on both sides (Acute) Ankle pain, left (Acute) Knee pain, bilateral (Acute) Pure hypercholesterolemia (Acute) Elevated fasting glucose (Acute) Restless leg syndrome (Acute) Impaired glucose tolerance (Acute) Right ankle pain (Acute) Class 2 obesity with body mass index (BMI) of 39.0 to 39.9 in adult (Acute) GERD (gastroesophageal reflux disease) (Acute) Past Medical History Medical History Elevated cholesterol RLS (restless legs syndrome) Osteopenia Fibromyalgia Arthritis Right ankle pain Right leg pain Class 2 obesity with body mass index (BMI) of 39.0 to 39.9 in adult Impaired glucose tolerance Heel pain GERD (gastroesophageal reflux disease) Family History Family History Father Tuberculosis Mother Tuberculosis Sister Lung cancer Sister Colon cancer Maternal Grandmother Diabetes Daughter Multiple sclerosis [place] Sister Lung cancer Surgical History Surgical History H/O colonoscopy History of History of hysterectomy History of incisional hernia repair Social History Social History Household Members: Children Household Members Other:: daughter Housing: Apartment Alcohol intake: former Patient Tobacco Use Status: Former Tobacco user Tobacco use type: Cigarette e-Cigarette/Vaping Use: Never Used Second Hand Smoke Exposure: No service: No Current occupational status: employed 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 Current occupational exposures/hazards: No Cognitive needs: No Hearing needs: No Vision needs: No Meds Allergies Allergy/AdvReac Type Severity Reaction Status Date / Time contrast dye Allergy Intermediate swelling Verified 02/24/24 12:32 epinephrine [EPINEPHRINE] Allergy Intermediate Facial Verified 05/03/24 13:17 Swelling Penicillins [PCN] Allergy Intermediate SWELLING Verified 02/24/24 12:32 famotidine AdvReac Intermediate Abdominal Verified 02/24/24 12:32 Pain meloxicam AdvReac Intermediate Dizziness Verified 02/24/24 12:32 tizanidine AdvReac Intermediate Palpitations, Verified 02/24/24 12:42 dizziness Active Medications: Current Medications Lactated Ringer's (Lr) 1,000 mls @ 100 mls/hr IVCONT .Q10H LARRY Sodium Biphosphate/Sodium Phosphate (Sodium Phosphate,[place]-Dibasic 133 Ml Enema) 133 ml TN ONCE PRN PRN Reason: Poor Colonoscopy Prep Results Exam Height,Weight and Vital Signs: Height 5 ft Weight 97.069 kg
[2024-05-03 13:20] VITALS: BMI 39.5
[2024-05-03 13:21] VITALS: BP 117/60; PULSE 77; RESP 16; TEMP 37.2; O2SAT 96
[2024-05-03] MEDS: Lactated Ringers 1,000 ML 100 ML IVCONT (13:32)
--- NOTE | 2024-05-03 13:57 | PC.NURSE ---
24hr update documented on paper.
[2024-05-03 14:55] VITALS: BP 124/76; PULSE 71; RESP 18; TEMP 36.9; O2SAT 100
--- NOTE | 2024-05-03 15:01 | PM.OP ---
Brief Operative Note Date of Service: 05/03/24 Pre-op diagnosis: GERD, Screening Post-op diagnosis: other (Hiatal hernia, Diverticulosis) Procedure: EGD with biopsies, Colonoscopy to the cecum Surgeon: Alexander Hammer MD Anesthesia: MAC Was an Pipe Bending Machine Operator used for this Procedure?: No Estimated blood loss (mL): 2.0 Pathology: other (A. EG Junction at 28cm) Condition: stable Disposition: PACU
[2024-05-03 15:16] VITALS: BP 131/62; PULSE 68; RESP 17; TEMP 36.1; O2SAT 98
--- NOTE | 2024-05-03 15:54 | OP_ITS ---
DATE OF SERVICE: 05/03/2024 SURGEON: Alexander Hammer MD INDICATIONS: The patient presents for chronic gastroesophageal reflux, family history of colon cancer, and colorectal cancer screening. Full consent has been obtained from her for this, including risks of bleeding and perforation. PREOPERATIVE DIAGNOSIS: POSTOPERATIVE DIAGNOSIS: PROCEDURE PERFORMED: Esophagogastroduodenoscopy with biopsies, and colonoscopy to the cecum. ESTIMATED BLOOD LOSS: COMPLICATIONS: ANESTHESIA: Monitored anesthesia care. ASSISTANTS: SPECIMENS: PREOPERATIVE DIAGNOSES: Gastroesophageal reflux, family history of colon cancer, and colorectal cancer screening. POSTOPERATIVE DIAGNOSES: Gastroesophageal reflux, family history of colon cancer, colorectal cancer screening, large hiatal hernia, diverticulosis, and internal hemorrhoids. DESCRIPTION OF PROCEDURE: The patient was placed in the left lateral decubitus position. The Olympus video gastroscope was passed in the posterior oropharynx and upper esophagus under direct vision. The scope was passed slowly to the distal esophagus. The gastroesophageal junction appeared at 28 cm. There was some slight irregularity consistent with small, less than 1 cm areas of possible [place] mucosa. There was no esophagitis nor any lesions. The scope entered the stomach. There was a large hiatal hernia. The hiatal hernia mucosa appeared normal. The scope was advanced to the pylorus and the duodenum was cannulated to the descending portion. The duodenum including the bulb appeared normal without mass or ulceration. The scope was withdrawn back to the stomach. The gastric antrum and body appeared normal with good peristalsis. The scope was retroflexed, visualizing the proximal stomach carefully, which appeared normal, without any sign of mass or ulceration. Scope was straightened and withdrawn back to the esophagus. I obtained multiple biopsies of the EG junction at 28 cm. Proximal to this, the esophageal mucosa appeared normal. The scope was withdrawn from the patient. She was turned around for the colonoscopy. The digital rectal exam revealed external hemorrhoids. The Olympus video pediatric colonoscope was then entered into the rectum and advanced to the cecum. The advancement past the sigmoid colon was somewhat difficult due to probable adhesions. Once in the cecum, I did identify normal-appearing cecal pouch with appendiceal orifice and a normal-appearing ileocecal valve. The entire cecum and ileocecal valve appeared normal. There was transillumination of light deep in the right lower quadrant. The scope was slowly withdrawn assessing all mucosal surfaces carefully. Preparation was excellent. I did not visualize any sign of polyps, colitis, or angiodysplasias. There was a mild amount of sigmoid diverticulosis. In the rectum, scope was retroflexed, visualizing internal hemorrhoids, but no other pathology. The rectal mucosa appeared normal. Scope was straightened and withdrawn from the patient. She tolerated the procedures well and was returned to the recovery area in stable condition. IMPRESSION: 1. Large hiatal hernia, gastroesophageal reflux, rule out [place] esophagus. 2. Diverticulosis. 3. Internal hemorrhoids. PLAN: The results of biopsies will be checked. I would recommend a repeat colonoscopy in 5 years for further screening given her family history. If there is [place] esophagus without dysplasia, I would recommend a repeat upper endoscopy in 5 years as well. She did have an upper GI series in 2019 describing a moderate-sized hiatal hernia. However, I shall repeat that as an outpatient at some point, given that it appears larger on today's exam and I want to make sure there is no component of a thoracic stomach or any other significant abnormality. She will continue her daily omeprazole. MD BHAVANA Shearer/WILLARD / [id number]
== END 2024-05-03 15:30 | disposition home or self-care (01) ==
PROVIDERS: PCP Internal Medicine; Visit Provider Internal Medicine
PROC: (CPT 45378; principal; 2024-05-03 13:30)
DX: Z12.11 Encounter for screening for malignant neoplasm of colon (principal); Z80.0 Family history of malignant neoplasm of digestive organs; K57.30 Diverticulosis of large intestine without perforation or abscess without bleeding; K64.8 Other hemorrhoids; K64.4 Residual hemorrhoidal skin tags; K21.9 Gastro-esophageal reflux disease without esophagitis; K44.9 Diaphragmatic hernia without obstruction or gangrene; Z79.899 Other long term (current) drug therapy; Z88.0 Allergy status to penicillin; Z91.041 Radiographic dye allergy status; Z98.890 Other specified postprocedural states; Z87.891 Personal history of nicotine dependence
CPT/HCPCS: 45378; 43239; 88305; 88313; J2704

== ENCOUNTER 2024-06-15 09:17 | Outpatient (AMB) | payer OTHER, SELFPAY ==
[2024-06-15 09:19] VITALS: BP 120/82; BMI 39.3
--- NOTE | 2024-06-15 09:19 | A.OFFPC_ITS ---
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 Required: No Accompanied by: Self / Same As Patient Allergies contrast dye Allergy (Intermediate, Verified 06/15/24 09:31) swelling epinephrine [EPINEPHRINE] Allergy (Intermediate, Verified 06/15/24 09:31) Facial Swelling Penicillins [PCN] Allergy (Intermediate, Verified 06/15/24 09:31) SWELLING famotidine Adverse Reaction (Intermediate, Verified 06/15/24 09:31) Abdominal Pain meloxicam Adverse Reaction (Intermediate, Verified 06/15/24 09:31) Dizziness tizanidine Adverse Reaction (Intermediate, Verified 06/15/24 09:31) Palpitations, dizziness Medication List - Last Reconciled 06/15/24 by Gina Olvera MD lidocaine 5% 1 patch topical DAILY omeprazole 20 mg PO DAILY 90 days Tobacco use date assessed: 06/15/24 Dental Screening Dental Screen Date: 06/15/24 Did you have a dental visit in the last 12 months?: Yes Did you have a dental problem in the last 6 months where you did not have access to dental care?: No Was dental information given to patient?: Patient has dentist HPI HPI Comments History of Present Illness Details This is a 63-year-old female with newly diagnosed diabetes mellitus type 2 that comes today for her physical exam. A1c elevated and I will start her on metformin. Mammogram done 2023. No need for Pap smear due to hysterectomy for benign reasons. Colonoscopy done 2023 showing internal hemorrhoids and endoscopy showing large hiatal hernia. Will be referred to General surgery. DEXA scan done 2022 shows osteopenia. She is obese with a BMI of 39.3 and was advised to do diet and exercise to reach BMI goal less than 30. She already 1 to weight management but said could not handle protein shakes and bars. Has mild major depression but declines any type of treatment. [facility] Medical History (Updated 06/15/24 @ 09:55 by Gina Olvera MD) Morbid obesity with BMI of 40.0-44.9, adult Elevated cholesterol RLS (restless legs syndrome) Osteopenia Fibromyalgia Arthritis Right ankle pain Right leg pain Class 2 obesity with body mass index (BMI) of 39.0 to 39.9 in adult Impaired glucose tolerance Heel pain GERD (gastroesophageal reflux disease) Surgical History H/O colonoscopy History of History of hysterectomy History of incisional hernia repair Family History Father Tuberculosis Mother Tuberculosis Sister Lung cancer Sister Colon cancer Maternal Grandmother Diabetes Daughter Multiple sclerosis [place] Sister Lung cancer Social History Household Members: Children Household Members Other:: daughter Housing: Apartment Alcohol intake: former Patient Tobacco Use Status: Former Tobacco user Tobacco use type: Cigarette e-Cigarette/Vaping Use: Never Used Second Hand Smoke Exposure: No service: No Current occupational status: employed 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 1. Little interest or pleasure in doing things: not at all 2. Feeling down, depressed, or hopeless: not at all 3. Trouble falling or staying asleep, or sleeping too much: several days 4. Feeling tired or having little energy: several days 5. Poor appetite or overeating: nearly every day 6. Feeling bad about yourself - or that you are a failure or have let yourself or your family down: not at all 7. Trouble concentrating on things, such as reading the newspaper or watching television: not at all 8. Moving or speaking so slowly that other people could have noticed. Or the opposite - being so fidgety or restless that you have been moving around a lot more than usual: not at all 9. Thoughts that you would be better off or of hurting yourself in some way: not at all Total score: 5 Depression Screening Interpretation: Positive Depression Screening Follow-up: Existing condition, Follow-up Visit Requested and Declines treatment Depression Screening Done: Yes 51592 - PHQ-9 Billing: Yes Source: Developed by Drs. Alexander Morton, Becca Bermudez, John Plaza and colleagues, with an educational taqueria from [employer]. Thrive Questionnaire Date Thrive assessed: 06/15/24 I am a: Patient What is your living situation today?: I have a steady place to live Within the past 12 months, did the food you bought not last and you didn't have the money to get more?: Never true Within the past 12 months, did you worry whether your food would run out before you got money to buy more?: Never true Do you have trouble paying for medicines?: Yes Do you have trouble getting transportation to medical appointments?: No Do you have trouble paying your heating and electricity bill?: No Do you have trouble taking care of your child, family member or friend?: No Do you have trouble with day-to-day activities such as bathing, preparing meals, shopping, managing finances, etc.?: No Are you currently unemployed and looking for a job?: No Are you interested in more education?: Yes Please select the resources that you would like help with: None Currently or been in a relationship where the following occur: No concerns reported THRIVE Score: 0 AUDIT C Alcohol Use Questionnaire (AUDIT-C) 1. How often do you have a drink containing alcohol?: Never Total Score: 0 Score Reviewed/Action Taken: No LESLEY-7 AMB Questionnaire LESLEY-7 Date LESLEY - 7 assessed: 06/15/24 Feeling nervous, anxious, or on edge: 0 = Not at all Not being able to stop or control worryin = Nearly every day Worrying too much about different things: 3 = Nearly every day Trouble relaxin = More than half the days Being so restless that it is hard to sit still: 0 = Not at all Becoming easily annoyed or irritable: 0 = Not at all Feeling afraid as if something awful might happen: 3 = Nearly every day Total LESLEY-7 score (0-4 normal; 5-9 mild; 10-14 moderate; 15-21 severe): 11 Source: Developed by Drs. Alexander Morton, Becca Bermudez, John Plaza and colleagues, with an educational taqueria from [employer]. LESLEY-7 Assessment Billing LESLEY-7 Assessment Tool: LESLEY-7 Assessment 65770 Review of Systems Const All systems reviewed & are unremarkable except as noted in HPI and below Card Denies chest pain at rest, Denies chest pain with activity, Denies edema, Denies irregular heart rhythm, Denies claudication, Denies dyspnea, Denies dyspnea on exertion, Denies orthopnea, Denies paroxysmal nocturnal dyspnea and Denies slow heart rate Resp Denies cough, Denies dyspnea and Denies dyspnea on exertion GI Denies abdominal pain, Denies change in bowel habits, Denies excessive flatus, Denies nausea and Denies vomiting Denies urinary incontinence, Denies urinary hesitancy and Denies urinary urgency Musc Denies abnormal gait, Denies atrophy, Denies deformity and Denies limited range of motion Skin/Breast Denies bleeding lesions, Denies changing lesions and Denies rash Neuro Denies abnormal gait and Denies lack of coordination Physical exam (Primary Care) Vital Signs: Last Vital Signs BP 120/82 06/15/24 09:19 BMI result Body Mass Index 39.3 BMI Assessment/Plan discussion: High BMI High, discussed plan: lifestyle, weight reduction, dietary and physical activity Tobacco/Smoking Status: Tobacco use Status Tobacco use date assessed 06/15/24 06/15/24 09:25 Patient Tobacco Use Status Former Tobacco user 06/15/24 09:23 Tobacco use type Cigarette 06/15/24 09:23 e-Cigarette/Vaping Use Never Used 06/15/24 09:23 PHQ-9: PHQ-9 Score PHQ-9: Total score 5 06/15/24 09:34 Depression Screening Interpretation: Positive Depression Screening Follow-up: Existing condition, Follow-up Visit Requested and Declines treatment Thrive Assessment: Date of Thrive Assessment Date Thrive assessed 06/15/24 06/15/24 09:25 Currently or been in a relationship where the following occur: No concerns reported Const Orientation/consciousness: patient oriented x3 HENMT Head: Yes normal to inspection, Yes normocephalic and Yes atraumatic Ears: external ears normal Eyes General: appearance normal, both eyes and all related structures Eyelids: Yes eyelids normal Conjunctivae: conjunctivae normal Neck Neck: Yes normal visual inspection and Yes supple Resp Effort & Inspection: normal respiratory effort Auscultation: clear to auscultation bilaterally Cardio Jugular venous distension: no JVD Rate: regular rate Rhythm: regular rhythm Heart sounds: S1 normal heart sound present and S2 normal heart sound present GI Inspection: Yes normal to inspection Palpation (GI): Soft to palpation and nontender Auscultation: normal bowel sounds Skin General skin exam: no rashes or lesions noted Neuro General: patient oriented x3 and no focal motor deficits Extrem General: Yes full ROM Psych Appearance: grossly normal Results AMB Hemoglobin A1c AMB Hemoglobin A1c 7.0 % Last Edit by YAMIL Cervantes on 06/15/24 09:4 0 Assessment and Plan Assessment & Plan (1) Physical exam: Code(s): Z00.00 - Encounter for general adult medical examination without abnormal findings Plan: Repeat in a year. (2) Diabetes mellitus with hyperglycemia, without long-term current use of insulin: Code(s): E11.65 - Type 2 diabetes mellitus with hyperglycemia Qualifiers: Diabetes mellitus type: type 2 Qualified Code(s): E11.65 - Type 2 diabetes mellitus with hyperglycemia Plan: Start metformin. Referred to Ophthalmology for diabetic eye exam. A1c goal is equal or less than 7%. (3) Ear itching: Code(s): L29.9 - Pruritus, unspecified Plan: Start Dermotic ear drops as needed. (4) Hiatal hernia: Code(s): K44.9 - Diaphragmatic hernia without obstruction or gangrene Plan: Referred to surgery. (5) Mild major depression: Code(s): F32.0 - Major depressive disorder, single episode, mild Plan: Declines treatment at the moment. Advised to seek counseling and/or medications if needed. Orders: Orders AMB Hemoglobin A1c Today R73.02 - Impaired glucose tolerance (oral) Comprehensive [place]. Panel Fast Today E11.65 - Type 2 diabetes mellitus with hyperglycemia Lipid Panel Today E11.65 - Type 2 diabetes mellitus with hyperglycemia, E78.5 - Hyperlipidemia, unspecified Microalbumin, Random (w Creat) Today E11.65 - Type 2 diabetes mellitus with hyperglycemia, E11.9 - Type 2 diabetes mellitus without complications Referrals General Surgery Referral K44.9 - Diaphragmatic hernia without obstruction or gangrene Ophthalmology Referral E11.65 - Type 2 diabetes mellitus with hyperglycemia Medications: New blood-glucose meter (FreeStyle Lite Meter kit) As directed 1 ea 0RF E11.65 - Type 2 diabetes mellitus with hyperglycemia fluocinolone acetonide oil 0.01% (DermOtic Oil) 5 drps otic (ears) BID 7 days 20 mL 0RF blood sugar diagnostic (FreeStyle Lite Strips) Use 1 test strip once a day 100 ea 3RF E11.65 - Type 2 diabetes mellitus with hyperglycemia lancets (FreeStyle Lancets) Use 1 lancet once a day 100 ea 2RF E11.65 - Type 2 diabetes mellitus with hyperglycemia metformin 500 mg PO BID 90 days 180 tabs 1RF E11.65 - Type 2 diabetes mellitus with hyperglycemia Coding Level of Care Code Est Pt Level 4 (09711) Est Pt Prev Care 40-64y(05757) Diagnoses Physical exam Z00.00 Type 2 diabetes mellitus with hyperglycemia, without long-term current use of insulin E11.65 Diabetes mellitus type: type 2 Ear itching L29.9 Hiatal hernia K44.9 Mild major depression F32.0 Additional Codes LESLEY-7 Assessment Billing - LESLEY-7 Assessment Tool: LESLEY-7 Assessment 29725 ([id number]) Time Spent (min) 40
== END 2024-06-15 09:47 | disposition home or self-care (01) ==
PROVIDERS: PCP Internal Medicine; Visit Provider Internal Medicine
DX: Z00.00 Encounter for general adult medical examination without abnormal findings (principal); E11.65 Type 2 diabetes mellitus with hyperglycemia; F32.0 Major depressive disorder, single episode, mild; L29.9 Pruritus, unspecified; K44.9 Diaphragmatic hernia without obstruction or gangrene; R73.02 Impaired glucose tolerance (oral)
CPT/HCPCS: 83036; 99214; 99396

== ENCOUNTER 2024-08-26 10:40 | Outpatient (AMB) | payer OTHER, SELFPAY ==
--- NOTE | 2024-08-26 10:50 | A.OFFVIS_ITS ---
Vital Signs 08/26/24 10:52 Height 5 ft Weight 195 lb 15.855 oz BMI 38.3 BP 118/68 Blood Pressure Location Lt brachial Position Sitting Pulse 72 Pulse Source Pulse Oximeter Pulse Oximetry (%) 96 Oxygen Delivery Method Room Air Intake Visit Reasons: Fibromyalgia/Lower back pain Intake Note: Patient presents today for fibromyalgia and lower back pin follow up. She was last seen in the office by Rocío Rivera on 02/24/24. 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 Name: [place] [id number] Allergies contrast dye Allergy (Intermediate, Verified 06/15/24 09:31) swelling epinephrine [EPINEPHRINE] Allergy (Intermediate, Verified 06/15/24 09:31) Facial Swelling Penicillins [PCN] Allergy (Intermediate, Verified 06/15/24 09:31) SWELLING famotidine Adverse Reaction (Intermediate, Verified 06/15/24 09:31) Abdominal Pain meloxicam Adverse Reaction (Intermediate, Verified 06/15/24 09:31) Dizziness tizanidine Adverse Reaction (Intermediate, Verified 06/15/24 09:31) Palpitations, dizziness HPI Comments Details: Patient is a 63-year-old female with diabetes who presents for follow up of osteoarthritis and fibromyalgia Interval History: Last seen with Rocío Rivera 02/24/2024. At that time she was referred to pain management for her low back pain. She did not want to try any medications because of concern of the sedating effects. Today she is complaining of neck pain and shoulder pain. 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 Rheumatologic History: Diagnosed with fibromyalgia after presenting for evaluation of polyarthralgias Has tried * Tizanidine: Makes her sleepy however she can only sleep for a couple hours and then she wakes up and then is unable to sleep for the rest of the night and then feels sleepy the next day * Gabapentin: Also makes her sleepy and associated with dizziness Current Rheumatology Medication(s): [facility] Medical History (Updated 06/15/24 @ 09:55 by Gina Olvera MD) Morbid obesity with BMI of 40.0-44.9, adult Elevated cholesterol RLS (restless legs syndrome) Osteopenia Fibromyalgia Arthritis Right ankle pain Right leg pain Class 2 obesity with body mass index (BMI) of 39.0 to 39.9 in adult Impaired glucose tolerance Heel pain GERD (gastroesophageal reflux disease) Surgical History H/O colonoscopy History of History of hysterectomy History of incisional hernia repair Family History Father Tuberculosis Mother Tuberculosis Sister Lung cancer Sister Colon cancer Maternal Grandmother Diabetes Daughter Multiple sclerosis [place] Sister Lung cancer Social History Household Members: Children Household Members Other:: daughter Housing: Apartment Alcohol intake: former Patient Tobacco Use Status: Former Tobacco user Tobacco use type: Cigarette e-Cigarette/Vaping Use: Never Used Second Hand Smoke Exposure: No service: No Current occupational status: employed 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 Current occupational exposures/hazards: No Cognitive needs: No Hearing needs: No Vision needs: No Review of Systems Const Details: Review of Systems Constitutional: Denies fever, chills, weight loss ENT: Denies vision changes, eye pain or eye redness, dental caries, dry mouth GI: Denies nausea, vomiting, diarrhea, abdominal pain, change in BM Pulm: Denies SOB, CHANG, hemoptysis, wheezing Cards: Denies chest pain, palpitations Skin: Denies Raynaud's, rash, nail changes, photosensitivity, SOCCER BALL ASSEMBLER: Denies headaches, weakness, paresthesias, recurrent falls MSK: as per HPI All other systems reviewed and are unremarkable except noted above Physical Exam Vital Signs: Last Vital Signs Pulse 72 08/26/24 10:52 BP 118/68 08/26/24 10:52 Pulse Ox 96 08/26/24 10:52 Oxygen Delivery Method Room Air 08/26/24 10:52 BMI result Body Mass Index 38.3 Physical Examination CONSTITUITIONAL Patient alert and cooperative. Well appearing and in no apparent painful distress HEENT Conjunctiva and sclera clear. ?Pupils equal round and reactive to light. ?No lymphadenopathy. ?Normal dentition. No oral or nasal ulcers noted. No evidence of discoid rash to the leonard of ears CHEST/RESPIRATORY SYSTEM Normal respiratory effort and able to speak in complete sentences. ?Clear to auscultation bilaterally. ?No crackles, rales, rhonchi, wheezes heard. CARDIAC SYSTEM Regular rate and rhythm. ?S1 and S2 heard no murmurs. ?Radial pulses intact bilaterally MSK Hands: ?Good lecturer of portuguese strength bilaterally - 5/5. ?No deformities noted. ?No synovitis noted to the MCPs, PIPs or DIPs. ?No tenderness to palpation of these joints. Wrists: ?Full range of motion at the wrists without pain. ?No tenderness to palpation or synovitis noted to the wrists. Elbows: Full range of motion without pain. No tenderness, weakness, swelling, increased warmth or erythema. Shoulders: Full range of motion without pain. No tenderness, weakness, swelling, increased warmth or erythema. Hips: Full range of motion without pain. Hip bursa: Tenderness to palpation bilateral hip bursa Knees: ?Full range of motion. ?No tenderness, swelling, increased warmth or erythema.?No effusion or crepitations Ankles: Full range of motion. ?No tenderness, swelling, increased warmth or erythema.? Feet: ?Negative squeeze test. ?No tenderness to palpation or swelling of the MTPs. Tender points:??Tenderness to palpation of the neck, shoulders, chest, elbows, hips, buttocks or knees. SKIN Skin intact without rashes. Results Reviewed Results Reviewed: Laboratory Tests 06/09/23 06/09/23 01/29/24 08:56 Unknown 09:21 ESR 11 C-Reactive Protein 0.58 H Rheumatoid Factor < 13.0 Cycl Citrul Peptide IgG <16 GINA Screen NEGATIVE Assessment & Plan Assessment & Plan (1) Fibromyalgia: Code(s): M79.7 - Fibromyalgia Category: Medical Plan: #Fibromyalgia Patient with fibromyalgia not currently on any treatment due to her adverse reaction to gabapentin, tizanidine and other sedating medications. We will trial milnacipran. We will see patient in 6 months and follow efficacy Plan I spent 30 minutes reviewing the record and labs, seeing the patient, discussing the treatment plan and documenting in the medical record ? Medications: New milnacipran Take 1/2 tablet at nights for 1 week then 1 tablet at night for 1 week then 1 tablet twice a day for 2 weeks then 2 tablets twice a day 50 mg (2 x 25 mg) PO BID 90 tabs 1RF M79.7 - Fibromyalgia Coding Level of Care Code Est Pt Level 4 (21202) Diagnoses Fibromyalgia M79.7
[2024-08-26 10:52] VITALS: BP 118/68; PULSE 72; O2SAT 96; BMI 38.3
== END 2024-08-26 11:21 | disposition home or self-care (01) ==
PROVIDERS: PCP Internal Medicine; Visit Provider Student in an Organized Health Care Education/Training Program
DX: M79.7 Fibromyalgia (principal)
CPT/HCPCS: 99214

== ENCOUNTER → 2024-08-26 10:40 | Outpatient (BNVA) | payer OTHER, SELFPAY | PROVIDERS: PCP Internal Medicine; Visit Provider Student in an Organized Health Care Education/Training Program | DX: M79.7 Fibromyalgia (principal); M54.50 Low back pain, unspecified; M54.2 Cervicalgia; M25.512 Pain in left shoulder; M25.511 Pain in right shoulder | CPT/HCPCS: 99212 ==

== ENCOUNTER 2024-10-20 09:10 | Outpatient (REF) | payer OTHER, SELFPAY ==
[2024-10-20 10:37] LABS: Alanine Aminotransferase 21 U/L (0-31); Albumin Level 4.1 g/dL (3.5-5.0); Alkaline Phosphatase 64 U/L (39-117); Anion Gap 12 (12-20); Aspartate Amino Transferase 26 U/L (5-31); Bilirubin Total 0.3 mg/dL (0.0-1.0); Blood Urea Nitrogen 8 mg/dL (9-16); Calcium 9.5 mg/dL (8.4-10.2); Carbon Dioxide 26 mmol/L (22-29); Chloride 107 mmol/L (96-108); Cholesterol 196 mg/dL (<200); Estimated Glomerular Filt Rate > 60; Glucose Fasting 113 mg/dL (60-99); HDL Cholesterol 38 mg/dL (>40); LDL Cholesterol Calculated 123 mg/dL (<100); Potassium 4.1 mmol/L (3.3-5.1); Sodium 141 mmol/L (135-145); Total Protein 7.4 g/dL (6.5-8.0); Triglycerides 177 mg/dL (<150)
[2024-10-20 11:31] LABS: Creatinine Urine 82.04 mg/dL; Microalbumin Urine < 5.0 mg/L
== END 2024-10-20 09:11 | disposition home or self-care (01) ==
LOC: HO.LAB 09:10
PROVIDERS: PCP Internal Medicine; Visit Provider Internal Medicine
DX: E78.5 Hyperlipidemia, unspecified (principal); E11.65 Type 2 diabetes mellitus with hyperglycemia
CPT/HCPCS: 36415; 80053; 80061; 82043; 82570

== ENCOUNTER 2024-10-28 13:31 | Outpatient (REF) | payer OTHER, SELFPAY ==
[2024-10-28 15:32] LABS: Influenza A PCR NEGATIVE (Negative); Influenza B PCR NEGATIVE (Negative); Resp Syncy Virus RNA Qual PCR NEGATIVE (Negative); SARS COV2 PCR INHOUSE NEGATIVE (Negative)
== END 2024-10-28 13:32 | disposition home or self-care (01) ==
LOC: HO.LAB 13:31
PROVIDERS: PCP Internal Medicine; Visit Provider Internal Medicine
DX: E11.65 Type 2 diabetes mellitus with hyperglycemia (principal); F32.0 Major depressive disorder, single episode, mild; E78.5 Hyperlipidemia, unspecified; K21.9 Gastro-esophageal reflux disease without esophagitis; R09.89 Other specified symptoms and signs involving the circulatory and respiratory systems
CPT/HCPCS: 0241U; 83036; 96127; 99212

== ENCOUNTER 2024-10-28 13:31 | Outpatient (AMB) | payer OTHER, SELFPAY ==
[2024-10-28 13:50] VITALS: BP 126/80; BMI 38.7
--- NOTE | 2024-10-28 13:50 | MHC.PC.OV ---
Vital Signs 10/28/24 13:50 Height 5 ft Weight 198 lb BMI 38.7 BP 126/80 Blood Pressure Location Lt brachial Position Sitting Intake Visit Reasons: dm Intake Note: Patient here for a follow up DM Straw Hat Machine Operator Required: Yes Straw Hat Machine Operator Language: Senior Manager Quality Assurance Name: Gina Olvera MD Information Interpreted: non-clinical & clinical Accompanied by: Self / Same As Patient Allergies contrast dye Allergy (Intermediate, Verified 10/28/24 14:12) swelling epinephrine [EPINEPHRINE] Allergy (Intermediate, Verified 10/28/24 14:12) Facial Swelling Penicillins [PCN] Allergy (Intermediate, Verified 10/28/24 14:12) SWELLING famotidine Adverse Reaction (Intermediate, Verified 10/28/24 14:12) Abdominal Pain meloxicam Adverse Reaction (Intermediate, Verified 10/28/24 14:12) Dizziness tizanidine Adverse Reaction (Intermediate, Verified 10/28/24 14:12) Palpitations, dizziness Medication List - Last Reconciled 10/28/24 by Gina Olvera MD ascorbate calcium (vitamin C) 500 mg PO DAILY blood sugar diagnostic (FreeStyle Lite Strips) Use 1 test strip once a day blood-glucose meter (FreeStyle Lite Meter kit) As directed lactobacillus combination no.4 (Probiotic) 3,000 mmu cells PO DAILY lancets (FreeStyle Lancets) Use 1 lancet once a day lidocaine 5% 1 patch topical DAILY mecobalamin (vitamin B12) mcg PO omeprazole 20 mg PO DAILY 90 days sitagliptin phosphate (Januvia) 50 mg PO DAILY Tobacco use date assessed: 10/28/24 Dental Screening Dental Screen Date: 10/28/24 Did you have a dental visit in the last 12 months?: Yes Did you have a dental problem in the last 6 months where you did not have access to dental care?: No Was dental information given to patient?: Patient has dentist HPI HPI Comments History of Present Illness Details The patient is a 63-year-old female presenting with Type 2 Diabetes Mellitus for management of hyperglycemia and hyperlipidemia. The patient has been on Januvia 50 mg but reports experiencing increased appetite with this medication. Recent laboratory results indicate that her hemoglobin A1c is well controlled at 6%. Additionally, the patient's LDL cholesterol is elevated at 123 mg/dL. The patient has a history of smoking and alcohol consumption, but she has since ceased both activities. The patient's current medications include omeprazole and a probiotic, and she is reported to have an allergy to penicillin. She has also experienced not bad diarrhea, previously linked to another diabetes medication, metformin. The discussion included the possibility of adjusting her diabetic regimen to better manage her appetite and to initiate treatment for hyperlipidemia due to her increased cardiovascular risk associated with diabetes. She is obese with a BMI of 38.7 and would like something to help her with the appetite. I will change Januvia to Rybelsus. She declines injections. Has mild major depression in remission. [facility] Medical History (Updated 10/28/24 @ 16:48 by Gina Olvera MD) Morbid obesity with BMI of 40.0-44.9, adult Elevated cholesterol RLS (restless legs syndrome) Osteopenia Fibromyalgia Arthritis Right ankle pain Right leg pain Class 2 obesity with body mass index (BMI) of 39.0 to 39.9 in adult Impaired glucose tolerance Heel pain GERD (gastroesophageal reflux disease) Surgical History H/O colonoscopy History of History of hysterectomy History of incisional hernia repair Family History Father Tuberculosis Mother Tuberculosis Sister Lung cancer Sister Colon cancer Maternal Grandmother Diabetes Daughter Multiple sclerosis [place] Sister Lung cancer Social History Household Members: Children Household Members Other:: daughter Housing: Apartment Alcohol intake: former Patient Tobacco Use Status: Former Tobacco user Tobacco use type: Cigarette e-Cigarette/Vaping Use: Never Used Second Hand Smoke Exposure: No service: No Current occupational status: employed Current occupation: [employer] Current occupational exposures/hazards: No Cognitive needs: No Hearing needs: No Vision needs: No Questionnaire PHQ-9 Over the last 2 weeks, how often have you been bothered by any of the following problems? 1. Little interest or pleasure in doing things: not at all 2. Feeling down, depressed, or hopeless: not at all 3. Trouble falling or staying asleep, or sleeping too much: not at all 4. Feeling tired or having little energy: not at all 5. Poor appetite or overeating: not at all 6. Feeling bad about yourself - or that you are a failure or have let yourself or your family down: not at all 7. Trouble concentrating on things, such as reading the newspaper or watching television: not at all 8. Moving or speaking so slowly that other people could have noticed. Or the opposite - being so fidgety or restless that you have been moving around a lot more than usual: not at all 9. Thoughts that you would be better off or of hurting yourself in some way: not at all Total score: 0 Depression Screening Interpretation: Negative Depression Screening Done: Yes 80284 - PHQ-9 Billing: Yes Source: Developed by Drs. Alexander Morton, Becca Bermudez, John Plaza and colleagues, with an educational taqueria from [employer]. Thrive Questionnaire Date Thrive assessed: 10/28/24 I am a: Patient What is your living situation today?: I have a steady place to live Within the past 12 months, did the food you bought not last and you didn't have the money to get more?: Never true Within the past 12 months, did you worry whether your food would run out before you got money to buy more?: Never true Do you have trouble paying for medicines?: Yes Do you have trouble getting transportation to medical appointments?: No Do you have trouble paying your heating and electricity bill?: No Do you have trouble taking care of your child, family member or friend?: No Do you have trouble with day-to-day activities such as bathing, preparing meals, shopping, managing finances, etc.?: No Are you currently unemployed and looking for a job?: No Are you interested in more education?: Yes Please select the resources that you would like help with: None Currently or been in a relationship where the following occur: No concerns reported THRIVE Score: 0 AUDIT C Alcohol Use Questionnaire (AUDIT-C) 1. How often do you have a drink containing alcohol?: 4 or more times a week Total Score: 4 LESLEY-7 AMB Questionnaire LESLEY-7 Date LESLEY - 7 assessed: 10/28/24 Feeling nervous, anxious, or on edge: 0 = Not at all Not being able to stop or control worryin = Not at all Worrying too much about different things: 0 = Not at all Trouble relaxin = Not at all Being so restless that it is hard to sit still: 0 = Not at all Becoming easily annoyed or irritable: 0 = Not at all Feeling afraid as if something awful might happen: 0 = Not at all Total LESLEY-7 score (0-4 normal; 5-9 mild; 10-14 moderate; 15-21 severe): 0 Source: Developed by Drs. Alexander Morton, Becca Bermudez, John Plaza and colleagues, with an educational taqueria from [employer]. LESLEY-7 Assessment Billing LESLEY-7 Assessment Tool: LESLEY-7 Assessment 25136 Review of Systems Const All systems reviewed & are unremarkable except as noted in HPI and below Card Denies chest pain at rest, Denies chest pain with activity, Denies edema, Denies irregular heart rhythm, Denies claudication, Denies dyspnea, Denies dyspnea on exertion, Denies orthopnea, Denies paroxysmal nocturnal dyspnea and Denies slow heart rate Resp Denies cough, Denies dyspnea and Denies dyspnea on exertion GI Denies abdominal pain, Denies change in bowel habits, Denies excessive flatus, Denies nausea and Denies vomiting Physical exam (Primary Care) Vital Signs: Last Vital Signs BP 126/80 10/28/24 13:50 BMI result Body Mass Index 38.7 BMI Assessment/Plan discussion: High BMI High, discussed plan: lifestyle, weight reduction, dietary and physical activity Tobacco/Smoking Status: Tobacco use Status Tobacco use date assessed 10/28/24 10/28/24 13:56 Patient Tobacco Use Status Former Tobacco user 10/28/24 13:56 Tobacco use type Cigarette 10/28/24 13:56 e-Cigarette/Vaping Use Never Used 10/28/24 13:56 PHQ-9: PHQ-9 Score PHQ-9: Total score 0 10/28/24 14:14 Depression Screening Interpretation: Negative Thrive Assessment: Date of Thrive Assessment Date Thrive assessed 10/28/24 10/28/24 13:56 Currently or been in a relationship where the following occur: No concerns reported Resp Effort & Inspection: normal respiratory effort Auscultation: clear to auscultation bilaterally Cardio Jugular venous distension: no JVD Rate: regular rate Rhythm: regular rhythm Heart sounds: S1 normal heart sound present and S2 normal heart sound present Extrem General: Yes full ROM Results AMB Hemoglobin A1c AMB Hemoglobin A1c 6.3 % Last Edit by YAMIL Cervantes on 10/28/24 14:12 Results Reviewed Results Reviewed: Laboratory Last Values Hgb A1c (Clinic) 6.3 % (4.0-6.0) H 10/28/24 13:47 Coding Level of Care Code Est Pt Level 4 (48186) Complex EM visit Add On G2211 Diagnoses Type 2 diabetes mellitus with hyperglycemia, without long-term current use of insulin E11.65 Diabetes mellitus type: type 2 Mild major depression F32.0 Hyperlipidemia LDL goal <70 E78.5 Gastroesophageal reflux disease, unspecified whether esophagitis present K21.9 Esophagitis presence: esophagitis presence not specified Additional Codes LESLEY-7 Assessment Billing - LESLEY-7 Assessment Tool: LESLEY-7 Assessment 98567 ([id number]) PHQ-9 - 60194 - PHQ-9 Billing: Yes ([id number]) Time Spent (min) 23 Assessment & Plan Assessment & Plan (1) Diabetes mellitus with hyperglycemia, without long-term current use of insulin: Code(s): E11.65 - Type 2 diabetes mellitus with hyperglycemia Category: Medical Qualifiers: Diabetes mellitus type: type 2 Qualified Code(s): E11.65 - Type 2 diabetes mellitus with hyperglycemia (2) Mild major depression: Code(s): F32.0 - Major depressive disorder, single episode, mild Category: Medical (3) Hyperlipidemia LDL goal <70: Code(s): E78.5 - Hyperlipidemia, unspecified Category: Medical (4) GERD (gastroesophageal reflux disease): Code(s): K21.9 - Gastro-esophageal reflux disease without esophagitis Category: Medical Qualifiers: Esophagitis presence: esophagitis presence not specified Qualified Code(s): K21.9 - Gastro-esophageal reflux disease without esophagitis Plan - Consider changing the antidiabetic medication from Januvia to another agent that does not increase appetite. - Initiate a low-dose statin for hyperlipidemia management, given the patient's diabetic status and elevated LDL cholesterol. - Order COVID-19 test and instruct the patient to visit the lab for the assessment. - Monitor the patient for potential muscle pain upon statin initiation and adjust as needed. Patient was informed and verbally consented to the use of an ambient scribe for clinic note documentation during this visit. I discussed with the patient the current management of her Type 2 Diabetes Mellitus, emphasizing the importance of glycemic control and cardiovascular risk reduction. We talked about the potential switch from Januvia to an alternative therapy due to increased appetite and the introduction of a statin at a low dose to manage hyperlipidemia. The risks and benefits of the statin, such as potential muscle pain, were explained, and the patient agreed to start therapy. Additionally, the patient will undergo an assessment for potential COVID-19 due to her concerns, and I provided a lab order for testing. Orders: Orders AMB Hemoglobin A1c Today E11.65 - Type 2 diabetes mellitus with hyperglycemia SARS-CoV2/FLU/RSV Today R09.89 - Other specified symptoms and signs involving the circulatory and respiratory systems Medications: New semaglutide (Rybelsus) 3 mg PO DAILY 30 tabs 0RF 30 days E11.65 - Type 2 diabetes mellitus with hyperglycemia atorvastatin 10 mg PO BEDTIME 90 tabs 1RF 90 days E78.5 - Hyperlipidemia, unspecified Patient Instructions: - Follow up with lab orders and complete the COVID-19 test as discussed. - Start the prescribed statin medication as directed. - Report any muscle pain or unusual symptoms while on the new medication. - Observe and record any changes in appetite or gastrointestinal symptoms with medication adjustments. - Schedule a follow-up appointment for further evaluation and management changes.
== END 2024-10-28 14:25 | disposition home or self-care (01) ==
PROVIDERS: PCP Internal Medicine; Visit Provider Internal Medicine
DX: E11.65 Type 2 diabetes mellitus with hyperglycemia (principal); F32.0 Major depressive disorder, single episode, mild; E78.5 Hyperlipidemia, unspecified; K21.9 Gastro-esophageal reflux disease without esophagitis

== ENCOUNTER 2025-02-22 10:12 | Outpatient (REF) | payer OTHER, SELFPAY ==
--- OUTSIDE RECORDS SUMMARY | 2025-02-22 11:16 | XMS_ITS ---
Author Organization [facility] Address [address] [place] [phone] Care Team Providers Care Seismograph Shooter Name Role Phone Gina Beach Primary Care Provider Unavailab Alexander Washington Unavailable [phone] REASON FOR VISIT screening,fam hx colon ca,gerd Encounters Encounter Location Date Provider Diagnosis [facility] Out[facility] [address] [place] [phone] 02/11/2024 Alexander Hammer Plan Of Treatment No Information Progress Notes * FERNY SHULTZDOB: (64 yo F)Acc No.[id number]:02/11/2024 EGD and COL/MAC Patient:?YANELY SHULTZ Provider:?Alexander Hammer MD :1960???Age:63 Y???Sex:Female D ate:02/11/2024 Address:[address] [place], [place] [id number] Pcp:Gina Olvera Subjective: * Chief Complaints: * ???1. Screening,fam hx colon ca,gerd. * Medical History:? Objective: * Vitals:? Assessment: Plan: * Treatment: * * The named appointment provid er may or may not be the originator of this progress note, and it is not deemed complete until electronically signed by the appointment provider. Sign off status: Pending * Provider:?Alexander Hammer MD Date:? 024 Generated for Philippei ng/Aleksandr/eTransmitting on:?02/22/2025 11:16 AM EDT
--- OUTSIDE RECORDS SUMMARY | 2025-02-22 11:16 | XMS_ITS ---
Author Organization [facility] Address [address] [place] [phone] Care Team Providers Care Chief Cruiser Name Role Phone Gina Beach Primary Care Provider Unavailab Alexander Washington Unavailable [phone] REASON FOR VISIT SCREENING, FAMILY HISTORY OF CANCER, GERD Problems Problem Type SNOMED Code ICD Code Onset Dates Problem Status W/U Status Risk Notes Problem Diverticular disease of colon (837342005) Diverticulosis of large intestine without perforation or abscess without bleeding (K57.30) Active confirmed Problem Gastroesophageal reflux disease (K21.9) Active confirmed Encounters Encounter Location Date Provider Diagnosis [facility] [place] Out[place] [address] [place] [id number] 05/03/2024 Alexander Hammer Colon cancer screeni ng [...] Notes * FERNY SHULTZDOB: (64 yo F)Acc No.[id number]:05/03/2024 EGD and COL/MAC Patient:?YANELY SHULTZ Provider:?Alexander Hammer MD :1960???Age:63 Y???Sex:Female D ate:05/03/2024 Address:[address] [place], [place] [phone] Pcp:Gina Olvera Subjective: * Chief Complaints: * ???1. SCREENING, FAMILY HIST ORY OF CANCER, GERD. * Medical History:? Objective: * Vitals:? Assessment: * Assessment: 1.?Colon cancer screening - Z12.11 (Primary)???2.?Family history of colon cancer - Z80.0???3.?Diverticulosis of large intestine without perforation or abscess without bleeding - K57.30???4.?Other hemorrhoids - K64.8???5.?Hiatal hernia - K44.9???6.?Gastroesophageal reflux disease - K21.9??? Plan: * Treatment: * Procedure Codes:?38872 DIAGN OSTIC COLONOSCOPY, 28136 UPPER GI ENDOSCOPY, BIOPSY * * The named appointment provid er may or may not be the originator of this progress note, and it is not deemed complete until electronically signed by the appointment provider. Sign off status: Pending * Provider:?Alexander Hammer MD Date:? 024 Generated for Lakeisha mondragon/Aleksandr/eTransmitting on:?02/22/2025 11:16 AM EDT
--- OUTSIDE RECORDS SUMMARY | 2025-02-22 11:16 | XMS_ITS | Clinical Summary ---
Author Organization [facility] Address [id number] [place] [phone] Care Team Providers Care Supervisor Lace Tearing Name Role Phone Gina Olvera MD Primary Care Provider Social History Tobacco Use Types Packs/Day Years Used Date Smoking Tobacco: Never Assessed Comments Unknown Sex and Gender Information Value Date Recorded Sex Assigned at Not on file Legal Sex Female 5:44 AM EST Gender Identity Not on file Sexual Orientation Not on file Plan of Treatment Health Maintenance Due Date Last Done Comments Breast Cancer Screening 1960 DTaP,Tdap,and Td Vaccines (1 - Tdap) 1979 Cervical Cancer Screening: P ap Smear 1981 Pneumococcal Vaccine: 50+ Ye ars (1 of 1 - PCV) 2010 Zoster Vaccines (1 of 2) 2010 Colorectal Cancer Screening: Colonoscopy 09/15/2022 Depression Screening 09/15/2022 HIV Screening 09/15/2022 Hepatitis C Screening 09/15/2022 Social Influencers of Health Screening 09/15/2022 COVID-19 Vaccine ( - 2023-2 5 season) 2024 Influenza Vaccine (Season Ended) 2025 RSV Immunization Adult Patie nts (1 - 1-dose 75+ series) 2035 HIB Vaccines Aged Out No longer eligi ble based on patient's age to complete this topic HPV Vaccines Aged Out No longer eligi ble based on patient's age to complete this topic Hepatitis A Vaccines Aged Out No long er eligible based on patient's age to complete this topic Hepatitis B Vaccines Aged Out No long er eligible based on patient's age to complete this topic IPV Vaccines Aged Out No longer eligi ble based on patient's age to complete this topic MMR Vaccines Aged Out No longer eligi ble based on patient's age to complete this topic Meningococcal ACWY Vaccine Aged Out N o longer eligible based on patient's age to complete this topic Meningococcal B Vaccine Aged Out No l onger eligible based on patient's age to complete this topic Pneumococcal Vaccine: Pediat rics (0 to 5 Years) and At-Risk Patients (6 to 64 Years) Aged Out No longer eligible b ased on patient's age to complete this topic RSV Immunization Patients Un jose d 20 months Aged Out No longer eligible b ased on patient's age to complete this topic Varicella Vaccines Aged Out No longer eligible based on patient's age to complete this topic Care Teams Supervisor Lace Tearing Relationship Specialty Start Date End Date Gina Olvera MD [address] [place] [address] , [address] [facility]: [facility] VINOD Storm PCP - General Internal Medicine 07/02/22
--- OUTSIDE RECORDS SUMMARY | 2025-02-22 11:16 | XMS_ITS ---
Author Organization [facility] Address [address] [place] [phone] Care Team Providers Care School Curriculum Developer Name Role Phone Gina Beahc Primary Care Provider Unavailab Alexander Washington Unavailable [phone] REASON FOR VISIT Needs UGI Encounters Encounter Location Date Provider Diagnosis [facility] [address] [place] [phone] 05/09/2024 Alexander Hammer Plan Of Treatment No Information Progress Notes * FERNY SHULTZDOB: (64 yo F)Acc No.[id number]:05/09/2024 Patient:?YANELY SHULTZ :1960???Age:63 Y???Sex:Female Address:[address] [place] [address], [phone] Subjective: * Chief Complaints: * ???Needs UGI * Medical History:? * Surgical History:? * Hospitalization/Major Diagno stic Procedure:? * Medications:? Objective: * Vitals:? * Physical Examination:? Assessment: Plan: * Treatment: * Procedure Codes:? * true * Date:? Generated for Lakeisha mondragon/Aleksandr/Annettasmitting on:?02/22/2025 11:16 AM EDT
--- OUTSIDE RECORDS SUMMARY | 2025-02-22 11:17 | XMS_ITS | Patient Health Record ---
Author Organization [facility] Address [address] [place] [address] Care Team Providers Care Engine Head Repairer Name Role Phone Gina Beach Primary Care Provider Unavailab Alexander Washington Unavailable [phone] Allergies Allergen (clinical drug ingredient) Drug/Non Drug Allergy documented on EMR Reaction Allergy Type Onset Date Status Penicillin Unknown Drug Allergy Active tinture iodine (uncoded) Unknown Allergy Active Results Component Value Reference Range Notes Pathology Reviewed date:02/02/2025 10:17:49 PM Interpretation: Performing Lab:[facility], [address] [place] [phone] Notes/Report: Name: Ferny Shultz Age/Sex: 63/F : 1960 Unit#: [id number] Attend Dr: Alexander Hammer MD Re05/03/24 Status : [facility] Location: [facility] Disch: SPEC : [id number] RECD : 05/04/24 STATUS: AIMEE GARDUNO NUM: [id number] TARYN: 05/03/24-[address] [facility] DR: Alexander Hammer MD ENTERED: 05/04/24-08 54 SP TYPE: Surgical OTHR DR: Gina Beach MD ORDERED: HE Stain/3, Gross Micro L4 Diagnosis EG junction, 28 cm, biopsy: - Cardiofundic-type mucosa with moderate chronic active inflammation and regenerative changes; no intestin al metaplasia seen. - Active, erosive, esophagitis. Clinical History Pre-Op Dx: Reflux, e ncounter for screening for malignant neoplasm of colon Post-Op Dx: Divertic ulosis, hemorrhoids Microscopic Description Microscopic sections examined. No metaplastic changes are seen, supported by AB/PAS stains. Material Received EG junction at 28 cm Gross Description Received in formalin labeled ?EG junction at 28 cm? are 4 rubbery, riggins-busby irregular tissue fragments each measu ring 0.25 cm, submitted in toto in a cassette labeled A. CEDS Special studies orde red and performed: AB/PAS stains Copies To: Gina Beach MD [facility] [place] Primary Care,[place] [address] [place], [place] [phone] Alexander Hammer MD [facility] [address] [place] [address] Signed (si gnature on file) Sean Doyle MD 05/07/24 1004 END OF REPORT Reason For Referral No Information Medications Medication SIG (Take, Route, Frequency, Duration) Notes [...] the procedure for 1 day 11/14/2023 Active Social History Tobacco Use: Social History Observation Description Date Details (start date - stop date) Former Smoker NA - NA Tobacco Use/Smoking Question Answer Notes Patient is [...] Never (0 point) Points 1 Interpretation Negative Section Notes: Nonsmoker; no sig alcohol Nonsmoker; no sig alcohol Problems Problem Type SNOMED Code ICD Code Onset Dates Problem Status W/U Status Risk Notes Problem 279603556 Encounter for screening for malignant neoplasm of colon (Z12.11) Active confirmed Problem Diverticular disease of colon (498512991) Diverticulosis of large intestine without perforation or abscess without bleeding (K57.30) Active confirmed Problem Gastroesophageal reflux disease (K21.9) Active confirmed Problem 054602518718164 Preprocedural examination (Z01.818) Active confirmed Problem 533208593 Family history o f colon cancer (Z80.0) Active confirmed Problem 179918332 Gastroesophageal reflux disease, unspecified whether esophagitis present (K21.9) Active confirmed Encounters Encounter Location Date Provider Diagnosis [facility] Outpatient [address], [place] [phone] 05/03/2024 Alexander Hammer Colon cancer screeni ng Z12.11 ; Family history of colon cancer Z80.0 ; Diverticulosis of large intestine without perforation or abscess without bleeding K57.30 ; Other hemorrhoids K64.8 ; Hiatal hernia K44.9 and Gastroesophageal reflux disease K21.9 [facility] [address] [place] [address] 05/09/2024 Alexander Hammer Assessments Encounter Date Diagnosis (ICD Code) Assessment [...] disease (ICD-10 - K21.9) Plan Of Treatment Future Test Test Name Order Date COLONOSCOPY 04/23/2018 UPPER GI ENDOSCOPY 11/13/2023 COLONOSCOPY 11/13/2023 Insurance Providers Payer Name Payer Address Payer Phone Subscriber Number Group Number Insured Name Patient Relationship to Insured Coverage Start Date Coverage End Date [facility] [address] [address] [place], [place] [id number] FERNY SHULTZ Self - patient is the insured Medical (General) History Medical History History ICD Code Denies NM,DM,CVA,Lung disease,renal dise ase Arthritis Negative screening colonoscopy in 05/2018 GERD Surgical History Surgery Date(Month/Year) IRAJ 2014 C-sections Umbilical hernia
== END 2025-02-22 10:13 | disposition home or self-care (01) ==
LOC: HO.MAMMO 10:12
PROVIDERS: PCP Internal Medicine; Visit Provider Internal Medicine
DX: Z12.31 Encounter for screening mammogram for malignant neoplasm of breast (principal)
CPT/HCPCS: 77063; 77067

== ENCOUNTER → 2025-02-22 10:30 | Outpatient (BNV) | payer OTHER, SELFPAY | PROVIDERS: PCP Internal Medicine; Visit Provider Internal Medicine | DX: Z12.31 Encounter for screening mammogram for malignant neoplasm of breast (principal) | CPT/HCPCS: 77063; 77067 ==

== ENCOUNTER 2025-02-23 11:31 | Outpatient (AMB) | payer OTHER, SELFPAY ==
--- NOTE | 2025-02-23 11:32 | A.OFFVIS_ITS ---
Vital Signs 02/23/25 11:41 Height 5 ft Weight 194 lb 10.691 oz BMI 38.0 BP 122/84 Blood Pressure Location Lt brachial Position Sitting Pulse 68 Pulse Source Pulse Oximeter Pulse Oximetry (%) 97 Oxygen Delivery Method Room Air Intake Visit Reasons: follow up Intake Note: Patient presents for Fibromyalgia. Admin Secretary Required: Yes Admin Secretary Language: Tie Mill Operator Services: Admin Secretary Present Admin Secretary Name: Aric [id number] Information Interpreted: non-clinical & clinical Allergies contrast dye Allergy (Intermediate, Verified 02/23/25 11:39) swelling epinephrine [EPINEPHRINE] Allergy (Intermediate, Verified 02/23/25 11:39) Facial Swelling Penicillins [PCN] Allergy (Intermediate, Verified 02/23/25 11:39) SWELLING famotidine Adverse Reaction (Intermediate, Verified 02/23/25 11:39) Abdominal Pain meloxicam Adverse Reaction (Intermediate, Verified 02/23/25 11:39) Dizziness tizanidine Adverse Reaction (Intermediate, Verified 02/23/25 11:39) Palpitations, dizziness HPI Comments Details: Patient is a 63-year-old female with diabetes who presents for follow up of osteoarthritis and fibromyalgia Interval History: Last seen with 08/26/25 with me. At that time she was following up for the management of fibromyalgia. She did not want to try any medications because of concern of the sedating effects. And so we opted to try milnacipran Patient did not start milnacipran due to concerns for side effects States that she has been trying to increase her exercise which has been helpful Rheumatologic History: Diagnosed with fibromyalgia after presenting for evaluation of polyarthralgias Has tried * Tizanidine: Makes her sleepy however she can only sleep for a couple hours and then she wakes up and then is unable to sleep for the rest of the night and then feels sleepy the next day * Gabapentin: Also makes her sleepy and associated with dizziness Current Rheumatology Medication(s): [facility] Medical History (Updated 10/28/24 @ 16:48 by Gina Olvera MD) Morbid obesity with BMI of 40.0-44.9, adult Elevated cholesterol RLS (restless legs syndrome) Osteopenia Fibromyalgia Arthritis Right ankle pain Right leg pain Class 2 obesity with body mass index (BMI) of 39.0 to 39.9 in adult Impaired glucose tolerance Heel pain GERD (gastroesophageal reflux disease) Surgical History H/O colonoscopy History of History of hysterectomy History of incisional hernia repair Family History Father Tuberculosis Mother Tuberculosis Sister Lung cancer Sister Colon cancer Maternal Grandmother Diabetes Daughter Multiple sclerosis [place] Sister Lung cancer Social History Household Members: Children Household Members Other:: daughter Housing: Apartment Alcohol intake: former Patient Tobacco Use Status: Former Tobacco user Tobacco use type: Cigarette e-Cigarette/Vaping Use: Never Used Second Hand Smoke Exposure: No service: No Current occupational status: employed Current occupation: [employer] Current occupational exposures/hazards: No Cognitive needs: No Hearing needs: No Vision needs: No Review of Systems Const Details: Review of Systems Constitutional: Denies fever, chills, weight loss ENT: Denies vision changes, eye pain or eye redness, dental caries, dry mouth GI: Denies nausea, vomiting, diarrhea, abdominal pain, change in BM Pulm: Denies SOB, CHANG, hemoptysis, wheezing Cards: Denies chest pain, palpitations Skin: Denies Raynaud's, rash, nail changes, photosensitivity, DIRECTOR TRIAL: Denies headaches, weakness, paresthesias, recurrent falls MSK: as per HPI All other systems reviewed and are unremarkable except noted above Physical Exam Vital Signs: Last Vital Signs Pulse 68 02/23/25 11:41 BP 122/84 02/23/25 11:41 Pulse Ox 97 02/23/25 11:41 Oxygen Delivery Method Room Air 02/23/25 11:41 BMI result Body Mass Index 38.0 Physical Examination CONSTITUITIONAL Patient alert and cooperative. Well appearing and in no apparent painful distress HEENT Conjunctiva and sclera clear. ?Pupils equal round and reactive to light. ?No lymphadenopathy. ?Normal dentition. No oral or nasal ulcers noted. No evidence of discoid rash to the leonard of ears CHEST/RESPIRATORY SYSTEM Normal respiratory effort and able to speak in complete sentences. ?Clear to auscultation bilaterally. ?No crackles, rales, rhonchi, wheezes heard. CARDIAC SYSTEM Regular rate and rhythm. ?S1 and S2 heard no murmurs. ?Radial pulses intact bilaterally MSK Hands: ?Good case management coordinator strength bilaterally - 5/5. ?No deformities noted. ?No synovitis noted to the MCPs, PIPs or DIPs. ?No tenderness to palpation of these joints. Wrists: ?Full range of motion at the wrists without pain. ?No tenderness to palpation or synovitis noted to the wrists. Elbows: Full range of motion without pain. No tenderness, weakness, swelling, increased warmth or erythema. Shoulders: Full range of motion without pain. No tenderness, weakness, swelling, increased warmth or erythema. Knees: ?Full range of motion. ?No tenderness, swelling, increased warmth or erythema.?No effusion or crepitations Ankles: Full range of motion. ?No tenderness, swelling, increased warmth or erythema.? Feet: ?Negative squeeze test. ?No tenderness to palpation or swelling of the MTPs. Tender points:??Tenderness to palpation of the neck, shoulders, chest, elbows, hips, buttocks or knees. SKIN Skin intact without rashes. Results Reviewed Results Reviewed: Laboratory Tests 06/09/23 06/09/23 01/29/24 08:56 Unknown 09:21 ESR 11 C-Reactive Protein 0.58 H Rheumatoid Factor < 13.0 Cycl Citrul Peptide IgG <16 GINA Screen NEGATIVE Assessment & Plan Assessment & Plan (1) Fibromyalgia: Code(s): M79.7 - Fibromyalgia Category: Medical Plan: #Fibromyalgia Patient is a 64-year-old female with fibromyalgia not currently on any treatment due to her adverse reaction to gabapentin, tizanidine and other sedating medications. Does not want to pursue any medication for the treatment of her fibromyalgia. Discussed continuing exercise and stretching. She can be discharged from clinic and follow up with her primary Plan I spent 30 minutes reviewing the record and labs, seeing the patient, discussing the treatment plan and documenting in the medical record ? Coding Level of Care Code Est Pt Level 3 (63712) Diagnoses Fibromyalgia M79.7
[2025-02-23 11:41] VITALS: BP 122/84; PULSE 68; O2SAT 97; BMI 38.0
--- OUTSIDE RECORDS SUMMARY | 2025-02-23 12:28 | XMS_ITS ---
Author Organization [facility] Address [address] [place] [address] Care Team Providers Care Urban Redevelopment Specialist Name Role Phone Gina Beach Primary Care Provider Unavailab Alexander Washington Unavailable [phone] REASON FOR VISIT screening,fam hx colon ca,gerd Encounters Encounter Location Date Provider Diagnosis [facility] Outpatient [address] [place] [phone] 02/11/2024 Alexander Hammer Plan Of Treatment No Information Progress Notes * FERNY SHULTZDOB: (64 yo F)Acc No.[id number]:02/11/2024 EGD and COL/MAC Patient:?YANELY SHULTZ Provider:?Alexander Hammer MD :1960???Age:63 Y???Sex:Female D ate:02/11/2024 Address:[address] [place], [place] [phone] Pcp:Gina Olvera Subjective: * Chief Complaints: * [...] Hammer MD Date:? 024 Generated for Philippei ng/Fashawandag/eTransmitting on:?02/23/2025 12:27 PM EDT
--- OUTSIDE RECORDS SUMMARY | 2025-02-23 12:28 | XMS_ITS | Patient Health Record ---
Author Organization [facility] Address [address] [place] [address] Care Team Providers Care Broadcast Traffic Coordinator Name Role Phone Gina Beach Primary Care Provider Unavailab Alexander Washington Unavailable [phone] Allergies Allergen (clinical drug ingredient) Drug/Non Drug Allergy documented on EMR Reaction Allergy Type Onset Date Status Penicillin Unknown Drug Allergy Active tinture iodine (uncoded) Unknown Allergy Active Results Component Value Reference Range Notes Pathology Reviewed date:02/02/2025 10:17:49 PM Interpretation: Performing Lab:[facility], [address] [place] [phone] Notes/Report: Name: Ferny Shultz Age/Sex: 63/F : 1960 Unit#: [id number] Attend Dr: Alexander Hammer MD Re05/03/24 Status : [facility] Location: [facility] Disch: SPEC : [id number] RECD : 05/04/24 STATUS: AIMEE GARDUNO NUM: [id number] TARYN: 05/03/24-[address] [facility] [address]: Alexander Hammer MD ENTERED: 05/04/24-08 [...] AB/PAS stains Copies To: Gina Beach MD [facility] [place] [address] [place], [place] [phone] Alexander Hammer MD [facility] [address] [place] [address] Signed (si gnature on file) Sean Doyle [...] Problem Status W/U Status Risk Notes Problem 077921837 Encounter for screening for malignant neoplasm of colon (Z12.11) Active confirmed Problem Diverticular disease of colon (296397233) Diverticulosis of large intestine without perforation or abscess without bleeding (K57.30) Active confirmed Problem Gastroesophageal reflux disease (233859479) Gastroesophageal reflux disease (K21.9) Active confirmed Problem 849421438938104 Preprocedural examination (Z01.818) Active confirmed Problem 149824473 Family history o f colon cancer (Z80.0) Active confirmed Problem 185334248 Gastroesophageal reflux disease, unspecified whether esophagitis present (K21.9) Active confirmed Encounters Encounter Location Date Provider Diagnosis [facility] Outpatient [address] [place], [place] [phone] 05/03/2024 Alexander Hammer Colon cancer screeni ng Z12.11 ; Family history of colon cancer Z80.0 ; Diverticulosis of large intestine without perforation or abscess without bleeding K57.30 ; Other hemorrhoids K64.8 ; Hiatal hernia K44.9 and Gastroesophageal reflux disease K21.9 [facility] [address] [place] [address] 05/09/2024 Alexander Hammer Assessments Encounter Date Diagnosis [...] Insured Coverage Start Date Coverage End Date [facility] [address] [address] [place], [place] [id number] FERNY SHULTZ Self - patient is the insured Medical (General) History Medical History History ICD Code Denies ID,DM,CVA,Lung disease,renal dise ase Arthritis Negative screening colonoscopy in 05/2018 GERD Surgical History Surgery Date(Month/Year) IRAJ 2014 C-sections Umbilical hernia
--- OUTSIDE RECORDS SUMMARY | 2025-02-23 12:28 | XMS_ITS | Clinical Summary ---
Author Organization [facility] Address [address] [place] [address] Care Team Providers Care Baseball Pitcher Name Role Phone Gina Olvera MD Primary Care Provider [phone] Social History Tobacco Use Types Packs/Day Years [...] age to complete this topic Care Teams Baseball Pitcher Relationship Specialty Start Date End Date Gina Olvera MD [address] [place] [address] , [address] [facility] VINOD Storm PCP - General Internal Medicine 07/02/22
--- OUTSIDE RECORDS SUMMARY | 2025-02-23 12:28 | XMS_ITS ---
Author Organization [facility] Address [address] [place] [address] Care Team Providers Care Unit Aid Name Role Phone Gina Beach Primary Care Provider Unavailab Alexander Washington Unavailable [phone] REASON FOR VISIT SCREENING, FAMILY HISTORY OF CANCER, GERD Problems Problem Type SNOMED Code ICD Code Onset Dates Problem Status W/U Status Risk Notes Problem Diverticular disease of colon (232145892) Diverticulosis of large intestine without perforation or abscess without bleeding (K57.30) Active confirmed Problem Gastroesophageal reflux disease (K21.9) Active confirmed Encounters Encounter Location Date Provider Diagnosis [facility] Outpatient [address] [place] [phone] 05/03/2024 Alexander Hammer Colon cancer screeni ng [...] Notes * FERNY SHULTZDOB: (64 yo F)Acc No.[id number]:05/03/2024 EGD and COL/MAC Patient:?YANELY SHULTZ Provider:?Alexander Hammer MD :1960???Age:63 Y???Sex:Female D ate:05/03/2024 Address:[address] [place], [place] [phone] Pcp:Gina Olvera Subjective: * Chief Complaints: * ???1. SCREENING, FAMILY HIST ORY OF CANCER, GERD. * Medical History:? Objective: * Vitals:? Assessment: * Assessment: 1.?Colon cancer screening - Z12.11 (Primary)???2.?Family history of colon cancer - Z80.0???3.?Diverticulosis of large intestine without perforation or abscess without bleeding - K57.30???4.?Other hemorrhoids - K64.8???5.?Hiatal hernia - K44.9???6.?Gastroesophageal reflux disease - K21.9??? Plan: * Treatment: * Procedure Codes:?64422 DIAGN OSTIC COLONOSCOPY, 72931 UPPER GI ENDOSCOPY, BIOPSY * * The named appointment provid er may or may not be the originator of this progress note, and it is not deemed complete until electronically signed by the appointment provider. Sign off status: Pending * Provider:?Alexander Hammer MD Date:? 024 Generated for Lakeisha mondragon/Aleksandr/eTransmitting on:?02/23/2025 12:27 PM EDT
--- OUTSIDE RECORDS SUMMARY | 2025-02-23 12:28 | XMS_ITS ---
Author Organization [facility] Address [address] [place] [address] Care Team Providers Care Sampler Radioactive Waste Name Role Phone Gina Beach Primary Care Provider Unavailab Alexander Washington Unavailable [phone] REASON FOR VISIT Needs UGI Encounters Encounter Location Date Provider Diagnosis [facility] [address] [place] [address] 05/09/2024 Alexander Hammer Plan Of Treatment No Information Progress Notes * FERNY SHULTZDOB: (64 yo F)Acc No.[id number]:05/09/2024 Patient:?YANELY SHULTZ :1960???Age:63 Y???Sex:Female Address:[address] [place] [address], [address] Subjective: * Chief Complaints: * ???Needs UGI * Medical History:? * Surgical History:? * Hospitalization/Major Diagno stic Procedure:? * Medications:? Objective: * Vitals:? * Physical Examination:? Assessment: Plan: * Treatment: * Procedure Codes:? * true * Date:? Generated for Lakeisha mondragon/Aleksandr/eTrociosmitting on:?02/23/2025 12:27 PM EDT
== END 2025-02-23 12:00 | disposition home or self-care (01) ==
LOC: HO.RHE 11:32
PROVIDERS: PCP Internal Medicine; Visit Provider Student in an Organized Health Care Education/Training Program
DX: M79.7 Fibromyalgia (principal)
CPT/HCPCS: 99213

== ENCOUNTER → 2025-02-23 11:31 | Outpatient (BNVA) | payer OTHER, SELFPAY | PROVIDERS: PCP Internal Medicine; Visit Provider Student in an Organized Health Care Education/Training Program | DX: M79.7 Fibromyalgia (principal) | CPT/HCPCS: 99212 ==

== ENCOUNTER 2025-03-28 10:41 | Outpatient (AMB) | payer OTHER, SELFPAY ==
--- NOTE | 2025-03-28 10:54 | A.OFFPC_ITS ---
Vital Signs 03/28/25 10:55 Height 5 ft Weight 190 lb BMI 37.1 BP 110/80 Blood Pressure Location Lt brachial Position Sitting Intake Visit Reasons: dm Intake Note: Patient here for a follow up DM Manager Cancer Required: No Accompanied by: Self / Same As Patient Allergies contrast dye Allergy (Intermediate, Verified 03/28/25 11:20) swelling epinephrine [EPINEPHRINE] Allergy (Intermediate, Verified 03/28/25 11:20) Facial Swelling Penicillins [PCN] Allergy (Intermediate, Verified 03/28/25 11:20) SWELLING empagliflozin [From Jardiance] Adverse Reaction (Intermediate, Verified 03/28/25 11:26) Abdominal Pain famotidine Adverse Reaction (Intermediate, Verified 03/28/25 11:20) Abdominal Pain meloxicam Adverse Reaction (Intermediate, Verified 03/28/25 11:20) Dizziness metformin Adverse Reaction (Intermediate, Verified 03/28/25 11:26) Diarrhea tizanidine Adverse Reaction (Intermediate, Verified 03/28/25 11:20) Palpitations, dizziness Medication List - Last Reconciled 03/28/25 by Gina Olvera MD atorvastatin 10 mg PO BEDTIME 90 days blood sugar diagnostic (FreeStyle Lite Strips) Use 1 test strip once a day blood-glucose meter (FreeStyle Lite Meter kit) As directed empagliflozin (Jardiance) 10 mg PO DAILY 90 days lactobacillus combination no.4 (Probiotic) 3,000 mmu cells PO DAILY lancets (FreeStyle Lancets) Use 1 lancet once a day lidocaine 5% 1 patch topical DAILY mecobalamin (vitamin B12) mcg PO omeprazole 20 mg PO DAILY 90 days Tobacco use date assessed: 10/28/24 Fall risk assessment: No Falls in past year Last assessed Fall Risk: 03/28/25 Dental Screening Dental Screen Date: 10/28/24 HPI HPI Comments History of Present Illness Details The patient is a 64-year-old female presenting with a follow-up for Type 2 Diabetes Mellitus. Her Hemoglobin A1c level was noted to be 7.1%, which is slightly elevated compared to her previous results. She has a history of medication changes due to adverse reactions, including diarrhea with metformin and pain with another unspecified medication. On statins for hyperlipidemia and her LDL goal should be less than 70. The patient reports symptoms consistent with allergic rhinitis, including nasal itching and sneezing. She has been experiencing these symptoms for an extended period, and previous treatments have not resolved the issue. The patient has acanthosis nigricans, which is characterized by darkened patches of skin, and she inquired about treatment options. Hydroquinone was discussed as a potential treatment, which is available over the counter. The patient also has a history of gastroesophageal reflux disease (GERD) and is currently taking omeprazole for management. [facility] Medical History (Updated 03/28/25 @ 11:33 by Gina Olvera MD) Morbid obesity with BMI of 40.0-44.9, adult Elevated cholesterol RLS (restless legs syndrome) Osteopenia Fibromyalgia Arthritis Right ankle pain Right leg pain Class 2 obesity with body mass index (BMI) of 39.0 to 39.9 in adult Impaired glucose tolerance Heel pain GERD (gastroesophageal reflux disease) Surgical History H/O colonoscopy History of History of hysterectomy History of incisional hernia repair Family History Father Tuberculosis Mother Tuberculosis Sister Lung cancer Sister Colon cancer Maternal Grandmother Diabetes Daughter Multiple sclerosis [place] Sister Lung cancer Social History Household Members: Children Household Members Other:: daughter Housing: Apartment Alcohol intake: former Patient Tobacco Use Status: Former Tobacco user Tobacco use type: Cigarette e-Cigarette/Vaping Use: Never Used Second Hand Smoke Exposure: No service: No Current occupational status: employed 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 1. Little interest or pleasure in doing things: not at all 2. Feeling down, depressed, or hopeless: not at all 3. Trouble falling or staying asleep, or sleeping too much: not at all 4. Feeling tired or having little energy: not at all 5. Poor appetite or overeating: several days 6. Feeling bad about yourself - or that you are a failure or have let yourself or your family down: not at all 7. Trouble concentrating on things, such as reading the newspaper or watching television: not at all 8. Moving or speaking so slowly that other people could have noticed. Or the opposite - being so fidgety or restless that you have been moving around a lot more than usual: not at all 9. Thoughts that you would be better off or of hurting yourself in some way: not at all Total score: 1 Depression Screening Interpretation: Negative Depression Screening Done: Yes 88260 - PHQ-9 Billing: Yes Source: Developed by Drs. Alexander Morton, Becca Bermudez, John Plaza and colleagues, with an educational taqueria from [employer]. Thrive Questionnaire Date Thrive assessed: 03/21/25 I am a: Patient What is your living situation today?: I have a steady place to live Within the past 12 months, did the food you bought not last and you didn't have the money to get more?: Never true Within the past 12 months, did you worry whether your food would run out before you got money to buy more?: Never true Do you have trouble paying for medicines?: No Do you have trouble getting transportation to medical appointments?: No Do you have trouble paying your heating and electricity bill?: No Do you have trouble taking care of your child, family member or friend?: No Do you have trouble with day-to-day activities such as bathing, preparing meals, shopping, managing finances, etc.?: No Are you currently unemployed and looking for a job?: No Are you interested in more education?: No Please select the resources that you would like help with: None Currently or been in a relationship where the following occur: No concerns reported THRIVE Score: 0 AUDIT C Alcohol Use Questionnaire (AUDIT-C) 1. How often do you have a drink containing alcohol?: Never Total Score: 0 LESLEY-7 AMB Questionnaire LESLEY-7 Date LESLEY - 7 assessed: 03/28/25 Feeling nervous, anxious, or on edge: 0 = Not at all Not being able to stop or control worryin = Not at all Worrying too much about different things: 0 = Not at all Trouble relaxin = Not at all Being so restless that it is hard to sit still: 0 = Not at all Becoming easily annoyed or irritable: 0 = Not at all Feeling afraid as if something awful might happen: 0 = Not at all Total LESLEY-7 score (0-4 normal; 5-9 mild; 10-14 moderate; 15-21 severe): 0 Source: Developed by Drs. Alexander Morton, Becca Bermudez, John Plaza and colleagues, with an educational taqueria from [employer]. LESLEY-7 Assessment Billing LESLEY-7 Assessment Tool: LESLEY-7 Assessment 47875 Review of Systems Const All systems reviewed & are unremarkable except as noted in HPI and below Card Denies chest pain at rest, Denies chest pain with activity, Denies edema, Denies irregular heart rhythm, Denies claudication, Denies dyspnea, Denies dyspnea on exertion, Denies orthopnea, Denies paroxysmal nocturnal dyspnea and Denies slow heart rate Resp Denies cough, Denies dyspnea and Denies dyspnea on exertion GI Denies abdominal pain, Denies change in bowel habits, Denies excessive flatus, Denies nausea and Denies vomiting Denies urinary incontinence, Denies urinary hesitancy and Denies urinary urgency Physical exam (Primary Care) Vital Signs: Last Vital Signs BP 110/80 03/28/25 10:55 BMI result Body Mass Index 37.1 BMI Assessment/Plan discussion: High BMI High, discussed plan: lifestyle, weight reduction, dietary and physical activity Tobacco/Smoking Status: Tobacco use Status Tobacco use date assessed 10/28/24 03/28/25 11:02 Patient Tobacco Use Status Former Tobacco user 03/28/25 11:02 Tobacco use type Cigarette 03/28/25 11:02 e-Cigarette/Vaping Use Never Used 03/28/25 11:02 PHQ-9: PHQ-9 Score PHQ-9: Total score 1 03/28/25 11:22 Depression Screening Interpretation: Negative Thrive Assessment: Date of Thrive Assessment Date Thrive assessed 03/21/25 03/28/25 11:02 Currently or been in a relationship where the following occur: No concerns reported HENMT Ears: external ears normal General nose exam: Normal external nose present and No nasal discharge present Face and sinus: Yes sinuses nontender Mouth: lip normal Resp Effort & Inspection: normal respiratory effort Auscultation: clear to auscultation bilaterally Cardio Jugular venous distension: no JVD Rate: regular rate Rhythm: regular rhythm Heart sounds: S1 normal heart sound present and S2 normal heart sound present Extrem General: Yes full ROM Results AMB Hemoglobin A1c AMB Hemoglobin A1c 7.1 % Last Edit by YAMIL Cervantes on 03/28/25 11:0 6 Results Reviewed Results Reviewed: Laboratory Last Values Hgb A1c (Clinic) 7.1 % (4.0-6.0) H 03/28/25 10:54 Coding Level of Care Code Est Pt Level 4 (97179) Complex EM visit Add On G2211 Diagnoses Allergic rhinitis J30.9 Hyperlipidemia LDL goal <70 E78.5 Type 2 diabetes mellitus with hyperglycemia, without long-term current use of insulin E11.65 Diabetes mellitus type: type 2 Gastroesophageal reflux disease, unspecified whether esophagitis present K21.9 Esophagitis presence: esophagitis presence not specified Additional Codes LESLEY-7 Assessment Billing - LESLEY-7 Assessment Tool: LESLEY-7 Assessment 01227 ([id number]) PHQ-9 - 53566 - PHQ-9 Billing: Yes ([id number]) Time Spent (min) 21 Assessment & Plan Assessment & Plan (1) Allergic rhinitis: Code(s): J30.9 - Allergic rhinitis, unspecified Category: Medical (2) Hyperlipidemia LDL goal <70: Code(s): E78.5 - Hyperlipidemia, unspecified Category: Medical (3) Diabetes mellitus with hyperglycemia, without long-term current use of insulin: Code(s): E11.65 - Type 2 diabetes mellitus with hyperglycemia Category: Medical Qualifiers: Diabetes mellitus type: type 2 Qualified Code(s): E11.65 - Type 2 diabetes mellitus with hyperglycemia (4) GERD (gastroesophageal reflux disease): Code(s): K21.9 - Gastro-esophageal reflux disease without esophagitis Category: Medical Qualifiers: Esophagitis presence: esophagitis presence not specified Qualified Code(s): K21.9 - Gastro-esophageal reflux disease without esophagitis Plan The management plan for Type 2 Diabetes Mellitus includes monitoring blood glucose levels and adjusting medications as necessary. The patient is advised to continue with her current medications, including atorvastatin for cholesterol management and omeprazole for GERD. For allergic rhinitis, a nasal spray and antihistamines were recommended to alleviate symptoms. The patient was informed about the availability of hydroquinone for treating acanthosis nigricans, which can be obtained over the counter. A follow-up appointment is scheduled to reassess her condition and the effectiveness of the current treatment regimen. Patient was informed and verbally consented to the use of an ambient scribe for clinic note documentation during this visit. During the consultation, I discussed the importance of managing blood glucose levels with the patient and the need for regular monitoring. We reviewed her current medications and addressed her concerns about previous adverse reactions. I recommended a nasal spray and antihistamines for her allergic rhinitis symptoms and informed her about the use of hydroquinone for acanthosis nigricans. We also discussed the need for a follow-up appointment to evaluate her progress and adjust her treatment plan as needed. Orders: Orders AMB Hemoglobin A1c Today E11.65 - Type 2 diabetes mellitus with hyperglycemia XR DEXA axial skeleton Today Z78.0 - Asymptomatic menopausal state Vitamin B12 and Folate 3 Months E53.8 - Deficiency of other specified B group vitamins Comprehensive [place]. Panel Fast 3 Months E78.5 - Hyperlipidemia, unspecified Vitamin D 25-OH Total 3 Months E55.9 - Vitamin D deficiency, unspecified Lipid Panel 3 Months E78.5 - Hyperlipidemia, unspecified Microalbumin, Random (w Creat) 3 Months R80.9 - Proteinuria, unspecified Referrals Ear/Nose/Throat Referral J30.9 - Allergic rhinitis, unspecified Medications: New fluticasone propionate 50 mcg/actuation (Flonase Allergy Relief) administer into each nostril 1 spray intranasal DAILY 16 grams 1RF 30 days glipizide 5 mg PO DAILY 90 tabs 1RF 90 days levocetirizine 5 mg PO DAILY PRN 90 tabs 1RF allergy symptoms 90 days Discontinued empagliflozin (Jardiance) Discontinued Reason: Patient Completed Course 10 mg PO DAILY 90 days 90 tabs 1RF Patient Instructions: - Monitor your blood glucose levels regularly and report any significant changes. - Continue taking atorvastatin and omeprazole as prescribed. - Use the nasal spray and antihistamines as directed for allergy relief. - Consider using hydroquinone for skin discoloration, available over the counter. - Schedule a follow-up appointment for
[2025-03-28 10:55] VITALS: BP 110/80; BMI 37.1
--- OUTSIDE RECORDS SUMMARY | 2025-03-28 12:01 | XMS_ITS ---
Author Organization [facility] Address [address] [place] [id number] Care Team Providers Care Training Facilitator Name Role Phone Gina Beach Primary Care Provider Unavailab Alexander [place] Unavailable [phone] REASON FOR VISIT screening,fam hx colon ca,gerd Encounters Encounter Location Date Provider Diagnosis [facility] [address] [place] [phone] 02/11/2024 Alexander Hammer Plan Of Treatment No Information Progress Notes * FERNY SHULTZDOB: (64 yo F)Acc No.[id number]:02/11/2024 EGD and COL/MAC Patient:?YANELY SHULTZ Provider:?Alexander Hammer MD :1960???Age:63 Y???Sex:Female D ate:02/11/2024 Address:[address] [place], [place] [id number] Pcp:Gina Olvera Subjective: * Chief Complaints: * [...] MD Date:? 024 Generated for Philippei ng/Fashawandag/eTransmitting on:?03/28/2025 12:01 PM EDT
== END 2025-03-28 11:34 | disposition home or self-care (01) ==
LOC: HO.HMCH 10:42
PROVIDERS: PCP Internal Medicine; Visit Provider Internal Medicine
DX: J30.9 Allergic rhinitis, unspecified (principal); E78.5 Hyperlipidemia, unspecified; E11.65 Type 2 diabetes mellitus with hyperglycemia; K21.9 Gastro-esophageal reflux disease without esophagitis

== ENCOUNTER → 2025-03-28 10:41 | Outpatient (BNVA) | payer OTHER, SELFPAY | PROVIDERS: PCP Internal Medicine; Visit Provider Internal Medicine | DX: E11.65 Type 2 diabetes mellitus with hyperglycemia (principal); E78.5 Hyperlipidemia, unspecified; J30.9 Allergic rhinitis, unspecified; K21.9 Gastro-esophageal reflux disease without esophagitis; Z79.899 Other long term (current) drug therapy | CPT/HCPCS: 83036; 96127; 99212 ==

== ENCOUNTER 2025-04-29 10:14 | Outpatient (REF) | payer OTHER, SELFPAY ==
--- OUTSIDE RECORDS SUMMARY | 2024-02-11 05:30 | XMS_ITS ---
Author Organization [facility] Address [address] [place] [id number] Care Team Providers Care Auction Block Clerk Name Role Phone Gina [place] Primary Care Provider Unavailab Alexander [place] Unavailable [phone] REASON FOR VISIT screening,fam hx colon ca,gerd Encounters Encounter Location Date Provider Diagnosis [facility] Outpatient [address] [place] [id number] 02/11/2024 Alexander Hammer Plan Of Treatment No Information Progress Notes * FERNY SHULTZDOB: (64 yo F)Acc No.[id number]:02/11/2024 EGD and COL/MAC Patient: FERNY WHALEY Provider: Reuben Hammer MD :1960 A ge:63 Y S ex:Female Date:02/11/2024 Address:[address] [place], [place] [id number] Pcp:Gina Olvera Subjective: * Chief Complaints: * 1 . Screening,fam hx colon ca,gerd. * Medical History: Objective: * Vitals: Assessment: Plan: * Treatment: * * The named appointment provid er may or may not be the originator of this progress note, and it is not deemed complete until electronically signed by the appointment provider. Sign off status: Pending * Provider: Reuben Hammer MD Date: 02/11/2024 Generated for Philippei ng/[place]/eTransmitting on: 04/29/2025 10:34 AM EDT
--- NOTE | ~2025-04-29 | MM_ITS ---
EXAMINATION: DXA BONE DENSITY AXIAL HISTORY: Z78.0 - Asymptomatic menopausal state TECHNIQUE: [employer] Dual energy absorptiometry (DEXA) of the lumbar spine, total left hip, and femoral neck was performed. COMPARISON: Comparison is made with the prior examination dated 02/19/2023. FINDINGS: The bone mineral density of the lumbar spine is 0.948 g/cm2, corresponding to a T-score of -2.1, and a Z-score of -1.3. This is indicative of osteopenia. This represents a BMD change of 1.4% compared to the prior exam. This is not statistically significant. The bone mineral density of the left total hip is 1.099 g/cm2, corresponding to a T-score of 0.7, and a Z-score of 1.3. This is indicative of normal bone mineral density. This represents a BMD change of -2.3% compared to the prior exam. This is not statistically significant. The bone mineral density of the left femoral neck is 0.984 g/cm2, corresponding to a T-score of -0.4, and a Z-score of 0.5. This is indicative of normal bone mineral density. This represents a BMD change of 0.9% compared to the prior exam. FRACTURE RISK: The FRAX index suggests a ten year probability of major osteoporotic fracture of 6.0%, and of hip fracture 0.2%. MM/XR DEXA axial skeleton IMPRESSION: Based on bone mineral density, and according to World Health Organization (WHO) criteria, the diagnosis is consistent with osteopenia. Statistically, 68% of repeat scans fall within 1 SD (+/- 0.010 g/cm2 for AP spine L1-L4) and 1 SD (+/- 0.012 g/cm2 for femur total) FRAX is a trademark of the [employer]'s [place] for Metabolic Bone Disease, a World Health Organization (WHO) Collaborating Center. Electronically signed by: Alexander Uribe MD 04/29/2025 11:04 AM EDT
--- OUTSIDE RECORDS SUMMARY | 2025-04-29 10:34 | XMS_ITS | Clinical Summary ---
Author Organization [facility] ity Address [address] [place] [id number] Care Team Providers Care Proposal Manager Name Role Phone Gina Olvera MD Primary Care Provider [phone] Social History Tobacco Use Types Packs/Day Years [...] - 2023-2 5 season) 2024 Influenza Vaccine (#1) 2025 RSV Immunization Adult Patie nts (1 [...] age to complete this topic Care Teams Proposal Manager Relationship Specialty Start Date End Date Gina Olvera MD [address] [place] [address] , [address] [facility] D/B/A: [facility] VINOD Storm PCP - General Internal Medicine 07/02/22
== END 2025-04-29 10:15 | disposition home or self-care (01) ==
LOC: HO.MAMMO 10:14
PROVIDERS: PCP Internal Medicine; Visit Provider Internal Medicine
DX: Z13.820 Encounter for screening for osteoporosis (principal); Z78.0 Asymptomatic menopausal state
CPT/HCPCS: 77080

== ENCOUNTER → 2025-04-29 10:30 | Outpatient (BNV) | payer OTHER, SELFPAY | PROVIDERS: PCP Internal Medicine; Visit Provider Radiology Diagnostic Radiology | DX: E28.39 Other primary ovarian failure (principal) | CPT/HCPCS: 77080 ==

== ENCOUNTER 2025-06-14 08:59 | Outpatient (REF) | payer OTHER, SELFPAY ==
--- OUTSIDE RECORDS SUMMARY | 2024-02-11 05:30 | XMS_ITS ---
Author Organization [facility] Address [address] [place] [phone] Care Team Providers Care [employer] Training Name Role Phone Gina Beach Primary Care Provider Unavailab Alexander [place] Unavailable [phone] REASON FOR VISIT screening,fam hx colon ca,gerd Encounters Encounter Location Date Provider Diagnosis [facility] Outpatient [address] [place] [id number] 02/11/2024 Alexander Hammer Plan Of Treatment No Information Progress Notes * FERNY SHULTZDOB: (64 yo F)Acc No.[id number]:02/11/2024 EGD and COL/MAC Patient: FERNY WHALEY Provider: Reuben Hammer MD :1960 A ge:63 Y S ex:Female Date:02/11/2024 Address:[address] [place], [place] [id number] Pcp:Gina Olvera Subjective: * Chief Complaints: * [...] Date: 02/11/2024 Generated for Philippei ng/[place]/eTransmitting on: 06/14/2025 09:47 AM EDT
--- OUTSIDE RECORDS SUMMARY | 2024-05-03 09:30 | XMS_ITS ---
Author Organization [facility] Address [address] [place] [phone] Care Team Providers Care Acid Tank Cleaner Name Role Phone Gina Beach Primary Care Provider Unavailab Alexander Washington Unavailable [phone] REASON FOR VISIT SCREENING, FAMILY HISTORY OF CANCER, GERD Problems Problem Type SNOMED Code ICD Code Onset Dates Problem Status W/U Status Risk Notes Problem Diverticular disease of colon (447270105) Diverticulosis of large intestine without perforation or abscess without bleeding (K57.30) Active confirmed Problem Gastroesophageal reflux disease (152674793) Gastroesophageal reflux disease (K21.9) Active confirmed Encounters Encounter Location Date Provider Diagnosis [facility] [place] [address] [place] [phone] 05/03/2024 Alexander Hammer Colon cancer screeni ng [...] Notes * FERNY SHULTZDOB: (64 yo F)Acc No.[id number]:05/03/2024 EGD and COL/MAC Patient: FERNY WHALEY Provider: Reuben Hammer MD :1960 A ge:63 Y S ex:Female Date:05/03/2024 Address:[address] [place], [place] [phone] Pcp:Gina Olvera Subjective: * Chief Complaints: * [...] * Procedure Codes: 4 5378 DIAGNOSTIC COLONOSCOPY, 16706 UPPER GI ENDOSCOPY, BIOPSY * * The named appointment provid er may or may not be the originator of this progress note, and it is not deemed complete until electronically signed by the appointment provider. Sign off status: Pending * Provider: Reuben Hammer MD Date: 0 05/03/2024 Generated for Lakeisha mondragon/Aleksandr/Lelanditting on: 0 06/14/2025 09:47 AM EDT
--- OUTSIDE RECORDS SUMMARY | 2025-06-14 09:47 | XMS_ITS | Clinical Summary ---
Author Organization [facility] ity Address [address] [place] [phone] Care Team Providers Care Child Protection Specialist Name Role Phone Gina Olvera MD Primary Care Provider [phone] Social History Tobacco Use Types Packs/Day Years [...] 2) 2010 Colorectal Cancer Screening: Colonoscopy 09/15/2022 HIV Screening 09/15/2022 Hepatitis C Screening 09/15/2022 Social Influencers of Health Screening 09/15/2022 Depression Screening 10/13/2024 COVID-19 Vaccine ( - 2023-2 5 season) 2025 Influenza Vaccine (#1) 2025 RSV Immunization Adult [...] complete this topic RSV Immunization Patients Un joes d 20 months Aged Out No longer eligible b ased on patient's age to complete this topic Varicella Vaccines Aged Out No longer eligible based on patient's age to complete this topic Care Teams Child Protection Specialist Relationship Specialty Start Date End Date Gina Olvera MD [address] [place] [address] , [address] [facility] Physician Associ D/B/A: [facility] VINOD Storm PCP - General Internal Medicine 07/02/22
--- OUTSIDE RECORDS SUMMARY | 2025-06-14 09:48 | XMS_ITS | Patient Health Record ---
Author Organization [facility] Address [address] [place] [phone] Care Team Providers Care Drying Room Attendant Name Role Phone Gina Beach Primary Care Provider UnavailAlexander Erazo Unavailable [phone] Allergies Allergen (clinical drug ingredient) Drug/Non Drug Allergy documented on EMR Reaction Allergy Type Onset Date Status Penicillin Unknown Drug Allergy Active tinture iodine (uncoded) Unknown Allergy Active Reason For Referral No Information Medications Medication [...] Problem Status W/U Status Risk Notes Problem [id number] Encounter for screening for malignant neoplasm of colon (Z12.11) Active confirmed Problem Diverticular disease of colon (230108611) Diverticulosis of large intestine without perforation or abscess without bleeding (K57.30) Active confirmed Problem Gastroesophageal reflux disease (K21.9) Active confirmed Problem [id number] Preprocedural examination (Z01.818) Active confirmed Problem 090039276 Family history o f colon cancer (Z80.0) Active confirmed Problem [id number] Gastroesophageal reflux disease, unspecified whether esophagitis present (K21.9) Active confirmed Plan Of Treatment Future Test Test Name Order Date COLONOSCOPY 04/23/2018 UPPER GI ENDOSCOPY 11/13/2023 COLONOSCOPY 11/13/2023 Insurance Providers Payer Name Payer Address Payer Phone Subscriber Number Group Number Insured Name Patient Relationship to Insured Coverage Start Date Coverage End Date [facility] [address] [address] [place], [place] [id number] FERNY SHULTZ Self - patient is the insured Medical (General) History Medical History History ICD Code Denies NM,DM,CVA,Lung disease,renal dise ase Arthritis Negative screening colonoscopy in 05/2018 GERD Surgical History Surgery Date(Month/Year) IRAJ 2014 C-sections Umbilical hernia
[2025-06-14 10:41] LABS: Alanine Aminotransferase 20 U/L (0-31); Albumin Level 4.5 g/dL (3.5-5.0); Alkaline Phosphatase 72 U/L (39-117); Anion Gap 13 (12-20); Aspartate Amino Transferase 29 U/L (5-31); Blood Urea Nitrogen 14 mg/dL (9-16); Calcium 9.4 mg/dL (8.4-10.2); Carbon Dioxide 29 mmol/L (22-29); Chloride 103 mmol/L (96-108); Cholesterol 160 mg/dL (<200); Estimated Glomerular Filt Rate > 60; HDL Cholesterol 43 mg/dL (>40); Potassium 4.2 mmol/L (3.3-5.1); Sodium 141 mmol/L (135-145); Total Protein 7.4 g/dL (6.5-8.0); Triglycerides 124 mg/dL (<150)
[2025-06-14 11:07] LABS: Folate 8.7 ng/mL (> or = 4.0); Vitamin B12 398 pg/mL (200-900)
== END 2025-06-14 09:00 | disposition home or self-care (01) ==
LOC: HO.LAB 08:59
PROVIDERS: PCP Internal Medicine; Visit Provider Internal Medicine
DX: E53.8 Deficiency of other specified B group vitamins (principal); E78.5 Hyperlipidemia, unspecified; E55.9 Vitamin D deficiency, unspecified; R80.9 Proteinuria, unspecified
CPT/HCPCS: 36415; 80053; 80061; 82043; 82306; 82570; 82607; 82746

== ENCOUNTER 2025-06-22 08:29 | Outpatient (AMB) | payer OTHER, SELFPAY ==
--- OUTSIDE RECORDS SUMMARY | 2024-02-11 05:30 | XMS_ITS ---
Author Organization [facility] Address [address] [place] [id number] Care Team Providers Care Sandwich Peddler Name Role Phone Gina Beach Primary Care Provider Unavailab Alexander [place] Unavailable [phone] REASON FOR VISIT screening,fam hx colon ca,gerd Encounters Encounter Location Date Provider Diagnosis [facility] Outpatient [address] [place] [id number] 02/11/2024 Alexander Hammer Plan Of Treatment No Information Progress Notes * FERNY SHULTZDOB: (64 yo F)Acc No.[id number]:02/11/2024 EGD and COL/MAC Patient: FERNY WHALEY Provider: Reuben Hammer MD :1960 A ge:63 Y S ex:Female Date:02/11/2024 Address:[address] [place], [place] [id number] Pcp:Gina Olvera Subjective: * Chief Complaints: * [...] Date: 02/11/2024 Generated for Philippei ng/[place]/eTransmitting on: 06/22/2025 09:48 AM EDT
--- OUTSIDE RECORDS SUMMARY | 2024-05-03 09:30 | XMS_ITS ---
Author Organization [facility] Address [address] [place] [phone] Care Team Providers Care Streetcar Repairer Name Role Phone Gina Beach Primary Care Provider Unavailab Alexander Washington Unavailable [phone] REASON FOR VISIT SCREENING, FAMILY HISTORY OF CANCER, GERD Problems Problem Type SNOMED Code ICD Code Onset Dates Problem Status W/U Status Risk Notes Problem Diverticular disease of colon (588381275) Diverticulosis of large intestine without perforation or abscess without bleeding (K57.30) Active confirmed Problem Gastroesophageal reflux disease (760459799) Gastroesophageal reflux disease (K21.9) Active confirmed Encounters Encounter Location Date Provider Diagnosis [facility] [place] [address] [place] [phone] 05/03/2024 Alexander Hammer Colon cancer screeni ng [...] Notes * FERNY SHULTZDOB: (64 yo F)Acc No.[id number]:05/03/2024 EGD and COL/MAC Patient: FERNY WHALEY Provider: Reuben Hammer MD :1960 A ge:63 Y S ex:Female Date:05/03/2024 Address:[address] [place], [place] [phone] Pcp:Gina Olvera Subjective: * Chief Complaints: * [...] * Procedure Codes: 4 5378 DIAGNOSTIC COLONOSCOPY, 44085 UPPER GI ENDOSCOPY, BIOPSY * * The named appointment provid er may or may not be the originator of this progress note, and it is not deemed complete until electronically signed by the appointment provider. Sign off status: Pending * Provider: Reuben Hammer MD Date: 0 05/03/2024 Generated for Lakeisha mondragon/Aleksandr/Lelanditting on: 0 06/22/2025 09:48 AM EDT
--- NOTE | 2025-06-22 08:34 | A.OFFPC_ITS ---
Vital Signs 06/22/25 08:36 Height 5 ft Weight 198 lb 8 oz BMI 38.8 BP 122/64 Blood Pressure Location Lt brachial Position Sitting Pulse 64 Pulse Source Pulse Oximeter Temp 96.9 F Temp Source Temporal Artery Scan Pulse Oximetry (%) 97 Oxygen Delivery Method Room Air Intake Visit Reasons: Annual physical Intake Note: Patient is here today for a physical. Fryer Operator Required: Yes Fryer Operator Language: Belarusian Information Interpreted: non-clinical & clinical Optical Glass Wet Inspector: Not Required per policy Accompanied by: Self / Same As Patient Allergies contrast dye Allergy (Intermediate, Verified 06/22/25 09:08) swelling epinephrine (EPINEPHRINE) Allergy (Intermediate, Verified 06/22/25 09:08) Facial Swelling Penicillins (PCN) Allergy (Intermediate, Verified 06/22/25 09:08) SWELLING empagliflozin (From Jardiance) Adverse Reaction (Intermediate, Verified 06/22/25 09:08) Abdominal Pain famotidine Adverse Reaction (Intermediate, Verified 06/22/25 09:08) Abdominal Pain meloxicam Adverse Reaction (Intermediate, Verified 06/22/25 09:08) Dizziness metformin Adverse Reaction (Intermediate, Verified 06/22/25 09:08) Diarrhea tizanidine Adverse Reaction (Intermediate, Verified 06/22/25 09:08) Palpitations, dizziness Medication List - Last Reconciled 06/22/25 by Gina Olvera MD atorvastatin 10 mg PO BEDTIME 90 days blood sugar diagnostic (FreeStyle Lite Strips) Use 1 test strip once a day blood-glucose meter (FreeStyle Lite Meter kit) As directed calcium carbonate-vitamin D3 250 mg-3.125 mcg (125 unit) (Oyster Shell Calcium- Vitamin D3) 1 tab PO BID 90 days fluticasone propionate 50 mcg/actuation (Flonase Allergy Relief) 1 spray intranasal DAILY 30 days glipizide 5 mg PO DAILY 90 days lactobacillus combination no.4 (Probiotic) 3,000 mmu cells PO DAILY lancets (FreeStyle Lancets) Use 1 lancet once a day levocetirizine 5 mg PO DAILY PRN 90 days lidocaine 5% 1 patch topical DAILY mecobalamin (vitamin B12) mcg PO omeprazole 20 mg PO DAILY 90 days Tobacco use date assessed: 06/22/25 Fall risk assessment: No Falls in past year Last assessed Fall Risk: 06/22/25 Dental Screening Dental Screen Date: 10/28/24 HPI HPI Comments History of Present Illness Details The patient is a 64-year-old female presenting for her annual physical examination. She has a history of osteopenia, identified during a bone density test conducted in April of this year, for which she is taking calcium with vitamin D supplementation. Her last colonoscopy, performed a year ago, revealed diverticulosis and hemorrhoids. The patient has a history of a hysterectomy performed for benign reasons, eliminating the need for Pap smears. She has not received a Tdap vaccine in over ten years, and it is noted that she requires this vaccination. The patient has Diabetes Mellitus Type 2, with her current A1c at 6.6%, indicating well-controlled blood glucose levels. Her LDL cholesterol has improved from 123 mg/dL to 93 mg/dL, and her blood pressure is well-controlled at 122/64 mmHg. She has a history of venous insufficiency and is being referred to vascular surgery for further management. The patient has a BMI of 38, classifying her as having class 2 obesity, which is a consideration given her diabetes. - Mammogram in February: Normal - Bone density test in April: Osteopenia, treated with calcium and vitamin D - Colonoscopy a year ago: Diverticulosis and hemorrhoids - Tdap vaccination needed - No need for Pap smear due to hysterect teresa for benign reasons. [facility] Medical History Morbid obesity with BMI of 40.0-44.9, adult Elevated cholesterol RLS (restless legs syndrome) Osteopenia Fibromyalgia Arthritis Right ankle pain Right leg pain Class 2 obesity with body mass index (BMI) of 39.0 to 39.9 in adult Impaired glucose tolerance Heel pain GERD (gastroesophageal reflux disease) Surgical History H/O colonoscopy History of History of hysterectomy History of incisional hernia repair Family History Father Tuberculosis Mother Tuberculosis Sister Lung cancer Sister Colon cancer Maternal Grandmother Diabetes Daughter Multiple sclerosis [place] Sister Lung cancer Social History Household Members: Children Household Members Other:: daughter Housing: Apartment Alcohol intake: former Patient Tobacco Use Status: Former Tobacco user Tobacco use type: Cigarette e-Cigarette/Vaping Use: Never Used Second Hand Smoke Exposure: Yes service: No Current occupational status: employed 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 Current occupational exposures/hazards: No Cognitive needs: No Hearing needs: No Vision needs: No Questionnaire Thrive Questionnaire Date Thrive assessed: 03/21/25 I am a: Patient What is your living situation today?: I have a steady place to live Within the past 12 months, did the food you bought not last and you didn't have the money to get more?: Never true Within the past 12 months, did you worry whether your food would run out before you got money to buy more?: Never true Do you have trouble paying for medicines?: No Do you have trouble getting transportation to medical appointments?: No Do you have trouble paying your heating and electricity bill?: No Do you have trouble taking care of your child, family member or friend?: No Do you have trouble with day-to-day activities such as bathing, preparing meals, shopping, managing finances, etc.?: No Are you currently unemployed and looking for a job?: No Are you interested in more education?: No Please select the resources that you would like help with: None Currently or been in a relationship where the following occur: No concerns reported THRIVE Score: 0 LESLEY-7 AMB Questionnaire LESLEY-7 Date LESLEY - 7 assessed: 03/28/25 Source: Developed by Drs. Alexander Morton, Becca Bermudez, John Plaza and colleagues, with an educational taqueria from [employer]. Review of Systems Const All systems reviewed & are unremarkable except as noted in HPI and below Card Denies chest pain at rest, Denies chest pain with activity, Denies edema, Denies irregular heart rhythm, Denies claudication, Denies dyspnea, Denies dyspnea on exertion, Denies orthopnea, Denies paroxysmal nocturnal dyspnea and Denies slow heart rate Resp Denies cough, Denies dyspnea and Denies dyspnea on exertion Musc Denies abnormal gait Neuro Denies abnormal gait, Denies behavioral changes and Denies lack of coordination Psych Denies behavioral changes Physical exam (Primary Care) Vital Signs: Last Vital Signs Temp 96.9 F 06/22/25 08:36 Pulse 64 06/22/25 08:36 BP 122/64 06/22/25 08:36 Pulse Ox 97 06/22/25 08:36 Oxygen Delivery Method Room Air 06/22/25 08:36 BMI result Body Mass Index 38.8 Tobacco/Smoking Status: Tobacco use Status Tobacco use date assessed 06/22/25 06/22/25 08:43 Patient Tobacco Use Status Former Tobacco user 06/22/25 08:43 Tobacco use type Cigarette 06/22/25 08:43 e-Cigarette/Vaping Use Never Used 06/22/25 08:43 Thrive Assessment: Date of Thrive Assessment Date Thrive assessed 03/21/25 06/22/25 08:43 Currently or been in a relationship where the following occur: No concerns reported HENMT Head: Yes normal to inspection, Yes normocephalic and Yes atraumatic Ears: external ears normal Eyes General: appearance normal, both eyes and all related structures Eyelids: Yes eyelids normal Conjunctivae: conjunctivae normal Neck Neck: Yes normal visual inspection and Yes supple Resp Effort & Inspection: normal respiratory effort Auscultation: clear to auscultation bilaterally Cardio Jugular venous distension: no JVD Rate: regular rate Rhythm: regular rhythm Heart sounds: S1 normal heart sound present and S2 normal heart sound present GI Inspection: Yes normal to inspection Palpation (GI): Soft to palpation and nontender Auscultation: normal bowel sounds Skin General skin exam: no rashes or lesions noted Neuro General: no focal motor deficits Extrem General: Yes full ROM Psych Appearance: grossly normal Results AMB Hemoglobin A1c AMB Hemoglobin A1c 6.6 % Last Edit by YAMIL Joseph on 06/22/25 08:50 Immunizations Boostrix Tdap 2.5 Lf unit-8 mcg-5 Lf/0.5 mL intramuscular syringe Performing Provider: Gina Olvera MD [place] [facility] [place] [facility] Administered by: YAMIL Villegas on 06/22/25 09:28 Dose Route Admin Location Dispensed Lot Number Expiration Date [facility] Phy Therapist 0.5 mL IM Left Deltoid 0.5 mL [id number] 09/01/27 [id number] [employer] Total Dispensed Waste 0.5 mL 0 % VIS Given Date VIS Provided VIS Publication Date 06/22/25 Single Vaccine 21 Eligibility Eligibility Date Funding Source Not VFC Eligible 06/22/25 Private Results Reviewed Results Reviewed: Laboratory Last Values Hgb A1c (Clinic) 6.6 % (4.0-6.0) H 06/22/25 08:34 Coding Level of Care Code Est Pt Level 3 (13427) Est Pt Prev Care 40-64y(34394) Diagnoses Physical exam Z00.00 Skin lesion L98.9 Venous (peripheral) insufficiency I87.2 Type 2 diabetes mellitus with hyperglycemia, without long-term current use of insulin E11.65 Diabetes mellitus type: type 2 Time Spent (min) 36 Assessment & Plan Assessment & Plan (1) Physical exam: Code(s): Z00.00 - Encounter for general adult medical examination without abnormal findings Category: Medical (2) Skin lesion: Code(s): L98.9 - Disorder of the skin and subcutaneous tissue, unspecified Category: Medical (3) Venous (peripheral) insufficiency: Code(s): I87.2 - Venous insufficiency (chronic) (peripheral) Category: Medical (4) Diabetes mellitus with hyperglycemia, without long-term current use of insulin: Code(s): E11.65 - Type 2 diabetes mellitus with hyperglycemia Category: Medical Qualifiers: Diabetes mellitus type: type 2 Qualified Code(s): E11.65 - Type 2 diabetes mellitus with hyperglycemia Plan Plan Patient was informed and verbally consented to the use of an ambient scribe for clinic note documentation during this visit. 1. Encounter for general adult medical examination without abnormal findings Z00.00 The patient is advised to receive the Tdap vaccination, as it has been over ten years since her last dose. 2. Type 2 diabetes mellitus without complications E11.9 HCC 19 The patient's diabetes is well-controlled with an A1c of 6.6%. 3. Venous insufficiency (chronic) (peripheral) I87.2 The patient will be referred to vascular surgery for further evaluation and management of venous insufficiency. 4. Skin lestion Refer to Dermatology. Orders: Orders AMB Hemoglobin A1c Today E11.65 - Type 2 diabetes mellitus with hyperglycemia Microalbumin, Random (w Creat) 4 Months R80.9 - Proteinuria, unspecified Vitamin B12 and Folate 4 Months E53.8 - Deficiency of other specified B group vitamins Vitamin D 25-OH Total 4 Months E55.9 - Vitamin D deficiency, unspecified Comprehensive Bruno. Panel Fast 4 Months E11.65 - Type 2 diabetes mellitus with hyperglycemia TDaP Immunization Today Z23 - Encounter for immunization Lipid Panel 4 Months E78.5 - Hyperlipidemia, unspecified Referrals Dermatology Referral L98.9 - Disorder of the skin and subcutaneous tissue, unspecified Vascular Surgery Referral I87.2 - Venous insufficiency (chronic) (peripheral) Medications: New atorvastatin (Lipitor) 20 mg PO BEDTIME 90 tabs 0RF 90 days Discontinued atorvastatin Discontinued Reason: Patient Completed Course 10 mg PO BEDTIME 90 days 90 tabs 1RF E78.5 - Hyperlipidemia, unspecified
[2025-06-22 08:36] VITALS: BP 122/64; PULSE 64; TEMP 36.1; O2SAT 97; BMI 38.8
--- OUTSIDE RECORDS SUMMARY | 2025-06-22 09:48 | XMS_ITS | Clinical Summary ---
Author Organization [facility] ity Address [address] [place] [id number] Care Team Providers Care Therapy Manager Name Role Phone Gina Olvera MD Primary Care Provider [phone] Social History Tobacco Use Types Packs/Day Years [...] age to complete this topic Care Teams Therapy Manager Relationship Specialty Start Date End Date Gina Olvera MD [address] [place] [address] , [address] [facility] Physician Associ D/B/A: [facility] VINOD Storm PCP - General Internal Medicine 07/02/22
--- OUTSIDE RECORDS SUMMARY | 2025-06-22 09:49 | XMS_ITS | Patient Health Record ---
Author Organization [facility] Address [address] [place] [id number] Care Team Providers Care Supervisor Orchard Name Role Phone Gina Beach Primary Care Provider UnavailAlexander Erazo Unavailable [phone] Allergies Allergen (clinical drug ingredient) Drug/Non Drug [...] Problem Status W/U Status Risk Notes Problem 841504025 Encounter for screening for malignant neoplasm of colon (Z12.11) Active confirmed Problem Diverticular disease of colon (367076181) Diverticulosis of large intestine without perforation or abscess without bleeding (K57.30) Active confirmed Problem Gastroesophageal reflux disease (882041131) Gastroesophageal reflux disease (K21.9) Active confirmed Problem [id number] Preprocedural examination (Z01.818) Active confirmed Problem 177657884 Family history o f colon cancer (Z80.0) Active confirmed Problem 122787515 Gastroesophageal reflux disease, unspecified whether esophagitis present (K21.9) Active confirmed Plan Of Treatment Future Test Test Name Order Date COLONOSCOPY 04/23/2018 UPPER GI ENDOSCOPY 11/13/2023 COLONOSCOPY 11/13/2023 Insurance Providers Payer Name Payer Address Payer Phone Subscriber Number Group Number Insured Name Patient Relationship to Insured Coverage Start Date Coverage End Date [facility] [address] [address] [place], [place] [id number] LORETTA COLON, FERNY Self - patient is the insured Medical (General) History Medical History History ICD Code Denies SC,DM,CVA,Lung disease,renal dise ase Arthritis Negative screening colonoscopy in 05/2018 GERD Surgical History Surgery Date(Month/Year) [facility] 2014 C-sections Umbilical hernia
== END 2025-06-22 09:34 | disposition home or self-care (01) ==
LOC: HO.HMCH 08:30
PROVIDERS: PCP Internal Medicine; Visit Provider Internal Medicine
DX: Z00.00 Encounter for general adult medical examination without abnormal findings (principal); E11.65 Type 2 diabetes mellitus with hyperglycemia; L98.9 Disorder of the skin and subcutaneous tissue, unspecified; I87.2 Venous insufficiency (chronic) (peripheral); Z23 Encounter for immunization

== ENCOUNTER → 2025-06-22 08:29 | Outpatient (BNVA) | payer OTHER, SELFPAY | PROVIDERS: PCP Internal Medicine; Visit Provider Internal Medicine | DX: Z00.01 Encounter for general adult medical examination with abnormal findings (principal); Z23 Encounter for immunization; L98.9 Disorder of the skin and subcutaneous tissue, unspecified; I87.2 Venous insufficiency (chronic) (peripheral); E11.65 Type 2 diabetes mellitus with hyperglycemia | CPT/HCPCS: 83036; 90471; 90715; 99212; 99396 ==

== ENCOUNTER 2025-08-25 09:32 | Outpatient (AMB) | payer OTHER, SELFPAY ==
--- OUTSIDE RECORDS SUMMARY | 2024-05-03 08:30 | XMS_ITS ---
Author Organization [facility] Address [address] [place] [phone] Care Team Providers Care Upholstered Goods Crafter Name Role Phone Gina Beach Primary Care Provider Unavailab Alexander Washington Unavailable [phone] REASON FOR VISIT SCREENING, FAMILY HISTORY OF CANCER, GERD Problems Problem Type SNOMED Code ICD Code Onset Dates Problem Status W/U Status Risk Notes Problem Diverticular disease of colon (847056373) Diverticulosis of large intestine without perforation or abscess without bleeding (K57.30) Active confirmed Problem Gastroesophageal reflux disease (265056131) Gastroesophageal reflux disease (K21.9) Active confirmed Encounters Encounter Location Date Provider Diagnosis [facility] [address] [place] [phone] 05/03/2024 Alexander Hammer Colon cancer screeni ng Z12.11 ; Family history of colon cancer Z80.0 ; Diverticulosis of large intestine without perforation or abscess without bleeding K57.30 ; Other hemorrhoids K64.8 ; Hiatal hernia K44.9 and Gastroesophageal reflux disease K21.9 Assessments Encounter Date Diagnosis (ICD Code) Assessment Notes Treatment Notes Treatment Clinical Notes Section Notes 05/03/2024 Colon cancer screening (ICD-10 - Z12.11) 05/03/2024 Family history of colon cancer (ICD-10 - Z80.0) 05/03/2024 Diverticulosis of large intestine without perforation or abscess without bleeding (ICD-10 - K57.30) 05/03/2024 Other hemorrhoids (ICD-10 - K64.8) 05/03/2024 Hiatal hernia (ICD-10 - K44.9) 05/03/2024 Gastroesophageal reflux disease (ICD-10 - K21.9) Plan Of Treatment No Information Progress Notes * FERNY SHULTZDOB: (64 yo F)Acc No.[id number]:05/03/2024 EGD and COL/MAC Patient: FERNY WHALEY Provider: Reuben Hammer MD :1960 A ge:63 Y S ex:Female Date:05/03/2024 Address:[address] [place], [place] [phone] Pcp:Gina Olvera Subjective: * Chief Complaints: * 1 . SCREENING, FAMILY HISTORY OF CANCER, GERD. * Medical History: Objective: * Vitals: Assessment: * Assessment: 1. C olon cancer screening - Z12.11 (Primary) 2 . F amily history of colon cancer - Z80.0 3 . D iverticulosis of large intestine without perforation or abscess without bleeding - K57.30 4 . O ther hemorrhoids - K64.8 5 . H iatal hernia - K44.9 6 . G astroesophageal reflux disease - K21.9 ? Plan: * Treatment: * Procedure Codes: 4 5378 DIAGNOSTIC COLONOSCOPY, 95194 UPPER GI ENDOSCOPY, BIOPSY * * The named appointment provid er may or may not be the originator of this progress note, and it is not deemed complete until electronically signed by the appointment provider. Sign off status: Pending * Provider: Reuben Hammer MD Date: 0 05/03/2024 Generated for Lakeisha mondragon/Aleksandr/Lelanditting on: 1 10/25/2024 11:01 AM EST
--- NOTE | 2025-08-25 09:38 | MHC.OFFVIS ---
Intake Visit Reasons: LIAISON INSPECTION LABORATORY ASSISTANT/[facility] referral for Intake Note: New patient presents for . She states she has bilateral leg pain and discomfort. She has calf pain on both legs but the right leg is worse. At night her legs keep her up at night. Accompanied by: Self / Same As Patient Allergies contrast dye Allergy (Intermediate, Verified 08/25/25 09:41) swelling epinephrine (EPINEPHRINE) Allergy (Intermediate, Verified 08/25/25 09:41) Facial Swelling Penicillins (PCN) Allergy (Intermediate, Verified 08/25/25 09:41) SWELLING empagliflozin (From Jardiance) Adverse Reaction (Intermediate, Verified 08/25/25 09:41) Abdominal Pain famotidine Adverse Reaction (Intermediate, Verified 08/25/25 09:41) Abdominal Pain meloxicam Adverse Reaction (Intermediate, Verified 08/25/25 09:41) Dizziness metformin Adverse Reaction (Intermediate, Verified 08/25/25 09:41) Diarrhea tizanidine Adverse Reaction (Intermediate, Verified 08/25/25 09:41) Palpitations, dizziness HPI HPI LIAISON INSPECTION LABORATORY ASSISTANT/[facility] referral for : Details: Very pleasant 64-year-old female patient presents for painful varicose veins. Complaints include pain over varicosities, swelling of lower extremities, cramping, fatigue, and heaviness of the lower extremities. It has been affecting there daily activities including walking. It is noted more so in right leg. Patient denies any previous venous surgery or injections. Patient denies any history of DVT/ PE. Patient denies any history of phlebitis. Trial of compression includes - [id number] They now present for vascular evaluation regarding their varicose veins. [facility] Medical History Morbid obesity with BMI of 40.0-44.9, adult Elevated cholesterol RLS (restless legs syndrome) Osteopenia Fibromyalgia Arthritis Right ankle pain Right leg pain Class 2 obesity with body mass index (BMI) of 39.0 to 39.9 in adult Impaired glucose tolerance Heel pain GERD (gastroesophageal reflux disease) Surgical History H/O colonoscopy History of History of hysterectomy History of incisional hernia repair Family History Father Tuberculosis Mother Tuberculosis Sister Lung cancer Sister Colon cancer Maternal Grandmother Diabetes Daughter Multiple sclerosis [place] Sister Lung cancer Social History Household Members: Children Household Members Other:: daughter Housing: Apartment Alcohol intake: former Patient Tobacco Use Status: Former Tobacco user Tobacco use type: Cigarette e-Cigarette/Vaping Use: Never Used Second Hand Smoke Exposure: Yes service: No Current occupational status: employed 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 Current occupational exposures/hazards: No Cognitive needs: No Hearing needs: No Vision needs: No Review of Systems Const Reports as per HPI ENT Reports no additional complaints Card Denies chest pain, Denies chest pain at rest and Denies chest pain with activity Resp Denies chest congestion and Denies cough GI Reports no additional complaints Musc Details: pain over varicosities, aching of lower extremities, swelling, cramping, heaviness and tiredness, itching Denies abnormal gait Skin/Breast Reports pruritus and Denies wounds Neuro Reports no additional complaints and Denies abnormal gait Psych Denies no additional complaints Physical Exam Const General: cooperative, healthy appearing and comfortable Orientation/consciousness: oriented to person, oriented to place and oriented to time Neck Carotids: no bruits Chest Chest palpation & inspection: normal inspection of the chest and normal palpation of entire chest wall Resp Effort & Inspection: normal respiratory effort and able to speak in complete sentences Cardio Rate: regular rate Heart sounds: S1 normal heart sound present and S2 normal heart sound present Peripheral pulses: Peripheral pulses 2+ throughout GI Inspection: Yes normal to inspection Skin Other: +2 edema, large rope-like varicosities greater than 4 mm CEAP Classification C4 - skin color changes Ep - Etiology Primary As - superficial veins P - reflux General skin exam: dry skin Neuro General: oriented to person, oriented to place and oriented to time Extrem Right lower extremity: full ROM, normal capillary refill and edema Left lower extremity: full ROM, normal capillary refill and edema Psych Mental Status: mental status grossly normal Assessment & Plan Assessment & Plan (1) Varicose veins of right lower extremity with inflammation: Code(s): I83.11 - Varicose veins of right lower extremity with inflammation Category: Medical Plan: In short, the patient has evidence of venous insufficiency. I have discussed the pathophysiology with the patient. In addition I have provided informational material regarding venous disease to the patient. We have discussed conservative measures including compression, elevation, and exercise. I have also provided a handout regarding appropriate use of compression stockings and where to purchase good compression stockings as well. I have taken the liberty of ordering venous insufficiency testing with the patient. They will follow up with me after testing. The patient had an opportunity to ask questions regarding the treatment plan. All questions were answered. Imaging studies, laboratory studies and physical exam results were discussed and reviewed in detail. No major barriers to understanding were identified. The patient expressed understanding and agreement with the above treatment plan. The patient is aware they should contact our office by phone for worsening of the current condition or the appearance of new symptoms. Thank you for allowing me to participate in the vascular care of this patient. If you have any questions or concerns regarding the treatment for the above condition please do not hesitate to contact me. The office telephone contact is [phone]. This note is constructed using voice recognition software. While every effort has been made to ensure accuracy, data processing auditor errors may have been included. Thank you for allowing me to participate in the care of your patient. Yours sincerely, Frederic Cherry MD, FACS, R.P.V.I. Orders: Orders US venous duplex LE BI Today I83.11 - Varicose veins of right lower extremity with inflammation Coding Level of Care Code New Pt Level 4 (79165) Diagnoses Varicose veins of right lower extremity with inflammation I83.11
--- OUTSIDE RECORDS SUMMARY | 2025-08-25 11:01 | XMS_ITS | Clinical Summary ---
Author Organization [facility] ity Address [address] [place] [address] Care Team Providers Care Information Assurance Engineer Name Role Phone Gina Olvera MD Primary Care Provider [phone] Social History Tobacco Use Types Packs/Day Years Used Date Smoking Tobacco: Never Assessed Comments Unknown Sex and Gender Information Value Date Recorded Sex Assigned at Not on file Legal Sex Female 5:44 AM EST Gender Identity Not on file Sexual Orientation Not on file Plan of Treatment Health Maintenance Due Date Last Done Comments Breast Cancer Screening 1960 Colorectal Cancer Screening: Colonoscopy 1960 DTaP,Tdap,and Td Vaccines (1 - Tdap) 1979 Cervical Cancer Screening: P ap Smear 1981 Pneumococcal Vaccine: 50+ Ye ars (1 of 1 - PCV) 2010 Zoster Vaccines (1 of 2) 2010 HIV Screening 09/15/2022 Hepatitis C Screening 09/15/2022 Social Influencers of Health Screening 09/15/2022 Depression Screening 10/13/2024 COVID-19 Vaccine (1 - 2024-2 6 season) 2025 Influenza Vaccine (#1) 2025 RSV [...] age to complete this topic Care Teams Information Assurance Engineer Relationship Specialty Start Date End Date Gina Olvera MD [address] [place] [address] , [address] [facility] Physician Associ D/B/A: [facility] VINOD Storm PCP - General Internal Medicine 07/02/22
--- OUTSIDE RECORDS SUMMARY | 2025-08-25 11:02 | XMS_ITS | Patient Health Record ---
Author Organization [facility] Address [address] [place] [address] Care Team Providers Care Valve Maker Name Role Phone Gina Beach Primary Care Provider UnavailAlexander Erazo Unavailable [phone] Allergies Allergen (clinical drug ingredient) Drug/Non Drug [...] two tablets twice a day for one day; Duration: 1 day 11/14/2023 Active MiraLax (colon prep) 17 GM/SCOOP 1 238GM bottle mixed with Gatorade or Crystal Light Orally begin at 5:00 p.m. the day before the procedure; Duration: 1 day 11/14/2023 Activ e Social History Tobacco Use: Social History Observation [...] Problem Status W/U Status Risk Notes Problem Screening for malignant neoplasm of colon (081454621) Encounter for screening for malignant neoplasm of colon (Z12.11) Active confirmed Problem Diverticular disease of colon (291525558) Diverticulosis of large intestine without perforation or abscess without bleeding (K57.30) Active confirmed Problem Gastroesophageal reflux disease (700771591) Gastroesophageal reflux disease (K21.9) Active confirmed Problem Preprocedural examination (485744987255287) Preprocedural examination (Z01.818) Active confirmed Problem Family History of Cancer of Colon (Situation) (735694391) Family history of colon cancer (Z80.0) Active confirmed Problem Gastroesophageal reflux disease (844571396) Gastroesophageal reflux disease, unspecified whether esophagitis present (K21.9) Active confirmed Plan Of Treatment Future Test Test Name Order Date COLONOSCOPY 04/23/2018 UPPER GI ENDOSCOPY 11/13/2023 COLONOSCOPY 11/13/2023 Insurance Providers Payer Name Payer Address Payer Phone Subscriber Number Group Number Insured Name Patient Relationship to Insured Coverage Start Date Coverage End Date [facility] [address] [address] [place], [place] [id number] FERNY SHULTZ Self - patient is the insured Medical (General) History Medical History History ICD Code Denies AL,DM,CVA,Lung disease,renal dise ase Arthritis Negative screening colonoscopy in 05/2018 GERD Surgical History Surgery Date(Month/Year) [facility] 2014 C-sections Umbilical hernia
== END 2025-08-25 10:02 | disposition home or self-care (01) ==
LOC: HO.HVS 09:32
PROVIDERS: PCP Internal Medicine; Visit Provider Surgery Vascular Surgery
DX: I83.11 Varicose veins of right lower extremity with inflammation (principal)
CPT/HCPCS: 99204

== ENCOUNTER → 2025-08-25 09:32 | Outpatient (BNVA) | payer OTHER, SELFPAY | PROVIDERS: PCP Internal Medicine; Visit Provider Surgery Vascular Surgery | DX: I83.11 Varicose veins of right lower extremity with inflammation (principal) | CPT/HCPCS: 99202 ==

== ENCOUNTER 2025-10-04 10:15 | Outpatient (REF) | payer OTHER, SELFPAY ==
--- OUTSIDE RECORDS SUMMARY | 2024-05-03 08:30 | XMS_ITS ---
Author Organization [facility] Address [address] [place] [phone] Care Team Providers Care Supervisor Lime Name Role Phone Gina Beach Primary Care Provider Unavailab Alexander Washington Unavailable [phone] REASON FOR VISIT SCREENING, FAMILY HISTORY OF CANCER, GERD Problems Problem Type SNOMED Code ICD Code Onset Dates Problem Status W/U Status Risk Notes Problem Diverticular disease of colon (191912941) Diverticulosis of large intestine without perforation or abscess without bleeding (K57.30) Active confirmed Problem Gastroesophageal reflux disease (792564021) Gastroesophageal reflux disease (K21.9) Active confirmed Encounters Encounter Location Date Provider Diagnosis [facility] [place] [address] [place] [phone] 05/03/2024 Alexander Hammer Colon cancer screeni ng [...] Notes * FERNY SHULTZDOB: (64 yo F)Acc No.[id number]:05/03/2024 EGD and COL/MAC Patient: FERNY WHALEY Provider: Reuben Hammer MD :1960 A ge:63 Y S ex:Female Date:05/03/2024 Address:[address] [place], [place] [phone] Pcp:Gina Olvera Subjective: * Chief Complaints: * S CREENING, FAMILY HISTORY OF CANCER, GERD Assessment: * Assessment: 1. C olon cancer screening - Z12.11 (Primary) 2 . F amily history of colon cancer - Z80.0 3 . D iverticulosis of large intestine without perforation or abscess without bleeding - K57.30 4 . O ther hemorrhoids - K64.8 5 . H iatal hernia - K44.9 6 . G astroesophageal reflux disease - K21.9 ? Plan: * Procedure Codes: 4 5378 DIAGNOSTIC [id number] UPPER GI ENDOSCOPY, BIOPSY Billing Information: * Procedure Codes: 81521 DIAGNOSTIC COLONOSCOPY. 32539 UPPER GI ENDOSCOPY, BIOPSY. * The named appointment provid er may or may not be the originator of this progress note, and it is not deemed complete until electronically signed by the appointment provider. Sign off status: Pending * Provider: Reuben Hammer MD Date: 0 05/03/2024 Generated for Lakeisha mondragon/Aleksandr/Lelanditting on: 1 12/05/2024 11:19 AM EST
--- NOTE | ~2025-10-04 | US_ITS ---
EXAMINATION: US LOWER EXTREMITY VENOUS (REFLUX EXAM), BILATERAL CLINICAL INFORMATION: Varicose veins of the lower extremity with inflammation COMPARISON: None. TECHNIQUE: Color flow triplex imaging and compression Doppler was performed to evaluate both the deep and the superficial systems bilaterally. To evaluate the superficial system, the examination was performed in the upright position. Color-flow Doppler ultrasound and compression ultrasound were utilized. In addition, maneuvers were utilized to demonstrate reflux. FINDINGS: 1. DEEP VENOUS ULTRASOUND OF THE RIGHT LOWER EXTREMITY: Common Femoral Vein: Compressible, normal respiratory variation and augmented flow. Femoral Vein: Compressible, normal color flow and augmentation. Popliteal Vein: Compressible, normal augmentation. Deep Reflux: There is no evidence of reflux in the deep system in either the common femoral vein, superficial femoral or the popliteal vein. 2. SUPERFICIAL ULTRASOUND WITH DOPPLER OF RIGHT LOWER EXTREMITY: GREAT SAPHENOUS VEIN: Saphenofemoral Junction: 1.0 cm; Reflux: 0 ms Proximal Thigh: 0.5 cm; Reflux: 0 ms Mid Thigh: 0.4 cm; Reflux: 0 ms Distal Thigh: 0.3 cm; Reflux: 0 ms At Knee: 0.3 cm; Reflux: 0 ms Below Knee/Proximal Calf: 0.3 cm; Reflux: 0 ms Mid Calf: 0.2 cm; Reflux: 0 ms Ankle/Distal Calf: 0.2 cm; Reflux: 0 ms Lateral accessory GREAT SAPHENOUS VEIN: Saphenofemoral Junction: 0.2 cm; Reflux: 0 ms Mid Thigh: 0.3 cm; Reflux: 0 ms SMALL SAPHENOUS VEIN: Drainage: Thigh extension Saphenopopliteal Junction: 0.4 cm; Reflux: 0 ms Mid calf: 0.3 cm; Reflux: 0 ms Distal: 0.2 cm; Reflux: 0 ms VEIN OF GIACOMINI: Size: 0.3 cm Reflux: 0 ms PERFORATORS: Location: Greater saphenous vein, mid thigh Size: 0.2 cm Reflux: 0 ms Location: Greater saphenous vein, mid calf Size: 0.2 and 0.1 cm Reflux: 0 ms VARICOSITIES > 3mm: Location: Great saphenous vein, midthigh Size: 0.4 cm Reflux: 0 ms 3. DEEP VENOUS ULTRASOUND OF THE LEFT LOWER EXTREMITY: Common Femoral Vein: Compressible, normal respiratory variation and augmented flow. Femoral Vein: Compressible, normal color flow and augmentation. Popliteal Vein: Compressible, normal augmentation. Deep Reflux: There is no evidence of reflux in the deep system in either the common femoral vein, superficial femoral or the popliteal vein. 4. SUPERFICIAL ULTRASOUND WITH DOPPLER OF LEFT LOWER EXTREMITY: GREAT SAPHENOUS VEIN: Saphenofemoral Junction: 0.4 cm; Reflux: 0 ms Proximal Thigh: 0.4 cm; Reflux: 0 ms Mid Thigh: 0.3 cm; Reflux: 0 ms Distal Thigh: 0.3 cm; Reflux: 0 ms At Knee: 0.3 cm; Reflux: 0 ms Below Knee/Proximl calf: 0.2 cm; Reflux: 0 ms Mid Calf: 0.2 cm; Reflux: 0 ms Distal Calf/Ankle: 0.2 cm; Reflux: 0 ms Lateral / Medial accessory GREAT SAPHENOUS VEIN: None imaged SMALL SAPHENOUS VEIN: Drainage: Popliteal vein Saphenopopliteal Junction: 0.3 cm; Reflux: 0 ms Mid calf: 0.2 cm; Reflux: 0 ms Distal calf: 0.1 cm; Reflux: 0 ms VEIN OF GIACOMINI: Size: 0.2 Reflux: 0 PERFORATORS: Location: Small saphenous vein, proximal calf Size: 0.3 cm Reflux: 0 ms Location: Greater saphenous vein, mid thigh Size: 0.2 cm Reflux: 0 ms Location: Greater saphenous vein, proximal calf Size: 0.2 cm Reflux: 0 ms Location: Greater saphenous vein, mid calf Size: 0.2 cm Reflux: 0 ms VARICOSITIES > 3mm: Location: Small saphenous vein, proximal calf Size: 0.3 cm Reflux: 0 ms US/US venous duplex LE BI IMPRESSION: Right: No venous reflux is demonstrated. Left: No venous reflux is demonstrated. Electronically signed by: Hero Vivar MD 10/04/2025 12:19 PM EST
--- OUTSIDE RECORDS SUMMARY | 2025-10-04 11:19 | XMS_ITS | Clinical Summary ---
Author Organization [facility] ity Address [address] [place] [id number] Care Team Providers Care Concrete Vibrator Operator Name Role Phone Gina Olvera MD Primary Care Provider [phone] Social History Tobacco Use Types Packs/Day Years [...] age to complete this topic Care Teams Concrete Vibrator Operator Relationship Specialty Start Date End Date Gina Olvera MD [address] [place] [address] , [address] [facility] VINOD Storm PCP - General Internal Medicine 07/02/22
--- OUTSIDE RECORDS SUMMARY | 2025-10-04 11:19 | XMS_ITS | Patient Health Record ---
Author Organization [facility] Address [address] [place] [phone] Care Team Providers Care Environmental Engineering Assistant Name Role Phone Gina Beach Primary Care Provider UnavailAlexander Erazo Unavailable [phone] Allergies Allergen (clinical drug ingredient) Drug/Non Drug Allergy documented on EMR Reaction Allergy Type Onset Date Status tinture iodine (uncoded) Unknown Allergy Active Penicillin Unknown Drug Allergy Active Reason For Referral No Information Medications Medication SIG (Take, Route, Frequency, Duration) Notes Start Date End Date Status Omeprazole 20 MG Capsule Delayed Release 1 tablet 30 minutes before morning meal Orally Once a day Active Vitamin D Active Calcium Active Dulcolax (colon prep) 5 MG Tablet Delayed Release take at 3:00 p.m and 7:00p.m. Orally two tablets twice a day for one day; Duration: 1 day 11/14/2023 Active MiraLax (colon prep) 17 GM/SCOOP Powder 1 238GM bottle mixed with Gatorade or Crystal Light Orally begin at 5:00 p.m. the day before the procedure; Duration: 1 day 11/14/2023 Activ e Social History Tobacco Use: Social History Observation Description Date Details (start date - stop date) Former Smoker NA - NA Social History Drugs/Alcohol: Social Info Question Answer Notes Alcohol Screen Did you have a drink containing alcohol in the past year? Yes How often did you have a drink containing alcohol in the past year? Monthly or less (1 point) How many drinks did you have on a typical day when you were drinking in the past year? 1 or 2 drinks (0 point) How often did you have 6 or more drinks on one occasion in the past year? Never (0 point) Points 1 Interpretation Negative Tobacco Use: Social Info Question Answer Notes Tobacco Use/Smoking Patient is a former smoker How long has it been since you last smoked? 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 [employer] Section Notes: Nonsmoker; no sig alcohol Nonsmoker; no sig alcohol Problems Problem Type SNOMED Code ICD Code Onset Dates Problem Status W/U Status Risk Notes Problem Screening for malignant neoplasm of colon (005537961) Encounter for screening for malignant neoplasm of colon (Z12.11) Active confirmed Problem Diverticular disease of colon (286944747) Diverticulosis of large intestine without perforation or abscess without bleeding (K57.30) Active confirmed Problem Gastroesophageal reflux disease (615140387) Gastroesophageal reflux disease (K21.9) Active confirmed Problem Preprocedural examination (747924569522265) Preprocedural examination (Z01.818) Active confirmed Problem Family History of Cancer of Colon (Situation) (120689322) Family history of colon cancer (Z80.0) Active confirmed Problem Gastroesophageal reflux disease (212534453) Gastroesophageal reflux disease, unspecified whether esophagitis present (K21.9) Active confirmed Plan Of Treatment Future Test Test Name Order Date COLONOSCOPY 04/23/2018 UPPER GI ENDOSCOPY 11/13/2023 COLONOSCOPY 11/13/2023 Insurance Providers Payer Name Payer Address Payer Phone Subscriber Number Group Number Insured Name Patient Relationship to Insured Coverage Start Date Coverage End Date [facility] [address] [address] [place], [place] [id number] LORETTA COLONFERNY Self - patient is the insured Medical (General) History Medical History History ICD Code Denies [place],DM,CVA,Lung disease,renal dise ase Arthritis Negative screening colonoscopy in 05/2018 GERD Surgical History Surgery Date(Month/Year) IRAJ 2014 C-sections Umbilical hernia
== END 2025-10-04 10:16 | disposition home or self-care (01) ==
LOC: HO.US 10:15
PROVIDERS: PCP Internal Medicine; Visit Provider Surgery Vascular Surgery
DX: I83.11 Varicose veins of right lower extremity with inflammation (principal)
CPT/HCPCS: 93970

== ENCOUNTER → 2025-10-04 10:16 | Outpatient (BNV) | payer OTHER, SELFPAY | PROVIDERS: PCP Internal Medicine; Visit Provider Radiology Diagnostic Radiology | DX: I83.11 Varicose veins of right lower extremity with inflammation (principal) | CPT/HCPCS: 93970 ==